=== PATIENT | female | born 1980 | race Caucasian/White ===

== ENCOUNTER 2023-09-22 09:01 | Outpatient (OUT) | payer SELFPAY ==
--- NOTE | 2023-09-22 09:14 | XR_ITS ---
The [place] [id number] Patient Name: JERARDO ONTIVEROS MRN: [id number] date: 1980 Sex: F Assigned Patient Location: [facility] Current Patient Location: [facility] Accession/Order Number: [id number] Exam Date: 09/22/2023 09:21 Report Date: 09/22/2023 15:41 At the request of: ERICA MORTON Procedure: XR finger RT min 2V PROCEDURE: XR finger RT min 2V HISTORY: thumb injury COMPARISON: XR hand right 01/12/2010 FINDINGS: BONES:No fracture, acute abnormality, or significant arthropathy. Ossification along anterior margin of the interphalangeal joint of the thumb is present in 2009 and is consistent with a sesamoid bone. SOFT TISSUES:No visible soft tissue swelling. EFFUSION:None visible. OTHER: Negative. XR/XR finger RT min 2V IMPRESSION: 1. No acute bone abnormality. Electronically authenticated by: JOSEMANUEL MARISCAL Date: 09/22/2023 15:41
--- NOTE | 2023-09-22 09:15 | XR_ITS ---
The [address] [address] Patient Name: JERARDO ONTIVEROS MRN: [id number] date: 1980 Sex: F Assigned Patient Location: [facility] Current Patient Location: Accession/Order Number: [id number] Exam Date: 09/22/2023 09:21 Report Date: 09/23/2023 06:28 At the request of: ERICA MORTON Procedure: XR wrist RT min 3V PROCEDURE: XR wrist RT min 3V HISTORY: right wrist injury COMPARISON: None. FINDINGS: BONES:No fracture, acute abnormality, or significant arthropathy. SOFT TISSUES:No visible soft tissue swelling. EFFUSION:None visible. OTHER: Negative. XR/XR wrist RT min 3V IMPRESSION: 1. No acute bone abnormality. Electronically authenticated by: JOSEMANUEL MARISCAL Date: 09/23/2023 06:28
== END 2023-09-22 09:02 | disposition home or self-care (01) ==
PROVIDERS: Visit Provider Nurse Practitioner Family
DX: M25.531 Pain in right wrist (principal); M79.644 Pain in right finger(s)
CPT/HCPCS: 73110; 73140

== ENCOUNTER 2023-12-04 10:07 | Outpatient (OUT) | payer OTHER, SELFPAY ==
--- OUTSIDE RECORDS SUMMARY | 2023-12-04 10:25 | XMS_ITS | CCD ---
Author Organization [facility] Care Team Providers Care Marketing Communications Assistant Name Role Phone GINNY ARANGO Unavailable Unavailable IVÁN MALONE TONIE Unavailable Unavailabl e Kristen Macias Unavailable Unavailabl e NEVIN LARA Primary Care Physician Timmis, Elena H Referring Unavailable Timmis, Elena H Attending Unavailable Timmis, Elena H Admitting Unavailable Timmis, Elena H Referring Unavailable Timmis, Elena H Attending Unavailable Timmis, Elena H Admitting Unavailable Anglim Nevin OAKLEY Primary Care Provider KIKI Lara Primary Care Provider [phone] MD [place] Phelan Attending Provider DR WESLY PHELAN Admitting Unavailable DR WESLY PHELAN Attending Unavailable [facility] Primary Care Unava ilable DR WESLY PHELAN Consulting Unavailable Alejandra Card Unavailable KIKI Lara Primary Care Provider [phone] MD Alejandra Card Attending Provider ANGLIM, NEVIN Primary Care Unavailable Navya PHELAN Attending Unavailable ANGLIM, NEVIN Primary Care Unavailable ANGLIM, NEVIN Primary Care Unavailable STEFANI CARLOS Referring Unavailable ANGLIM, NEVIN Primary Care Unavailable STEFANI CARLOS Referring Unavailable ANGLIM, NEVIN Primary Care Unavailable KENIA LOVE Referring Unavailab STEFANI Avila Attending Unavailable ANGLIM, NEVIN Primary Care Unavailable ANGLIM, NEVIN Primary Care Unavailable Navya PHELAN Attending Unavailable ANGLIM, NEVIN Primary Care Unavailable Anglim, Nevin Primary Care Unavailable Alejandra Card Attending Unavailable Alejandra Card Admitting Unavailable ANGLIM, NEVIN A Referring Unavailable SERVICES, [facility] Celinasudhakar maravillaanil JOAQUÍN NAVIDVANE Castellanos Referring Unavailable SERVICES, [facility] Unava TROY Mercado Attending Unavailable SERVICES, [facility] IRMA Avilez Attending Unavailabl e IRMA JOSEPH Referring Unavailabl e SERVICES, [facility] Unava ilanil Allergies Allergy Classification Reported Allergen(s) Allergy Type Date of Onset Reaction(s) Facility (20 sources) Penicillins; Translations: [penicillins] Propensity to adverse reactions to drug (disorder) 6 Rash, Swelling, Shortness of Breath [facility] Repository (2 sources) Penicillin Drug Allergy Unknown Quikly Other Medications Current Medications Medication Drug Class(es) Dates Sig (Normalized) Sig (Original) [id number] actuat albuterol 0.09 mg/actuat metered dose inhaler (19 sources) beta2-Adrenergic Agonist take 1 puff(s) by inhalation every four hours as needed Albuterol Sulfate HFA 108 (90 Base) MCG/ACT 1 puff as needed Inhalation every 4 hrs Active albuterol HFA (P ROVENTIL HFA, VENTOLIN HFA) 90 mcg/actuation inhaler Inhale 1 Puff as instructed. 0 Active take 1 puff(s) by in halation every four hours as needed Albuterol Sulfate HFA 108 (90 Base) MCG/ ACT 1 puff as needed Inhalation every 4 hrs Active Comment on above: Inhale 1 Puff as ins tructed. albuterol CFC free 90 mcg/inh inhalation aerosol (2 sources) Start: 04-29-20 take 1 puff(s) by inhalation every six hours albuterol CFC free 90 mcg/inh inhalation aerosol = 1 puff(s), Inhalation, q6hr, Refills(s) 0, Asthma Start Date: 04/29/22 Status: Ordered busPIRone hydrochloride 5 mg oral tablet (2 sources) take 1 tablet by mouth every twelve hours busPIRone HCl 5 MG 1 tablet Orally Twice a day Active Hydrochlorothiazide-25 mg 25 mg (2 sources) Start: 06-24-20 23 take 1 tablet by mouth once daily Hydrochlorothiazid e-25 mg 25 mg 1 tablet Orally Once a day for 90 days Jun, Active take 1 tablet by mouth once karen y Hydrochlorothiazide-25 mg 25 mg 1 tablet Orally Once a day for 90 days Active losartan potassium 100 mg oral tablet (2 sources) Angiotensin 2 Receptor Faith take 1 tablet by mouth every twenty-four hours Losartan Potassium 100 MG 1 tablet Orally Once a day Active nystatin 100 unt/mg topical powder (2 sources) Polyene Antifungal Nystatin 1000 00 UNIT/GM 1 application Externally Twice a day Active Completed/Discontinued Medications Medication Drug Class(es) Dates Sig (Normalized) Sig (Original) amLODIPine 5 mg oral tablet (20 sources) Dihydropyridine Calcium Channel Faith Start: 05-06-2022 amLODIPine (NORVASC) 5 mg tablet Take 5 mg by mouth. 0 05/06/2022 Active take 1 tablet by teodoro th every twenty-four hours amLODIPine Besylate 10 MG 1 tablet Orall y Once a day Active Comment on above: Take 5 mg by mouth. hydrOXYzine pamoate 25 mg oral capsule (2 sources) Antihistamine take 1 capsule by mouth every twenty-four hours hydrOXYzine Pamoate 25 MG 1 capsule at bedtime as needed Orally Once a day Not-Taking/PRN levothyroxine sodium 0.2 mg oral tablet (20 sources) l-Thyroxine Start: 02-06-20 End: 03-26-20 take 1 tablet by mouth once daily levothyroxine (SYNTHROID) 50 mcg tablet Take 1 tablet by mouth once daily. Take along with 200 mcg synthroid daily 30 tablet 2 03/26/2023 Active Start: 12-25-2022 End: 06-24-2023 take 1 tablet by mouth once daily levothyroxine (SYNTHROID) 200 mcg tablet Take 1 tablet by mouth once daily. 30 tablet 3 03/26/2023 Active Start: 10-22-2022 End: 12-25-2022 take 1 tablet by mouth once daily levothyroxine (SYNTHROID) 150 mcg tablet Take 1 tablet by mouth once daily. 30 tablet 3 10/22/2022 12/25/2022 Discontinued Start: 07-08-2022 End: 10-22-2022 take 1 tablet by mouth once daily levothyroxine (SYNTHROID) 125 mcg tablet Take 1 tablet by mouth once daily. 30 tablet 1 08/28/2022 10/22/2022 Discontinued (Course of therapy completed) take 1 tablet by teodoro th once daily in the morning Levothyroxine Sodium 300 MCG 1 tablet in the morning on an empty stomach Orally Once a day Active take 1 tablet by teodoro th once daily in the morning Levothyroxine Sodium 300 MCG 1 tablet in the morning on an empty stomach Orally Once a day Active Comment on above: Take 1 tablet by teodoro th once daily. Take 1 tablet by teodoro th once daily. Take along with 200 mcg synthroid daily liothyronine sodium 0.025 mg oral tablet (11 sources) l-Triiodothyronine Start: 05-20-2022 liothyronine (CYTOMEL) 25 mcg tablet Take 25 mcg by mouth. 0 05/20/2022 Active take 1 tablet by teodoro th every twenty-four hours Liothyronine Sodium 25 MCG 1 tablet on a n empty stomach Orally Once a day Active Comment on above: Take 25 mcg by mouth . lisinopril 5 mg oral tablet (12 sources) Angiotensin Converting Enzyme Inhibitor Start: take 1 tablet by mouth once daily lisinopril (ZESTRIL, PRINIVIL) 5 mg tablet Take 5 mg by mouth once daily. 0 07/07/2022 Active Comment on above: Take 5 mg by mouth o nce daily. ondansetron 8 mg oral tablet (4 sources) Serotonin-3 Receptor Antagonist Start: End: take 1 tablet by mouth every eight hours as needed ondansetron (ZOFRAN) 8 mg tablet Take 1 tablet by mouth every 8 hours as needed for nausea/vomiting. 21 tablet 1 08/06/2022 10/22/2022 Discontinued Comment on above: Take 1 tablet by teodoro th every 8 hours as needed for nausea/vomiting. pilocarpine hydrochloride 5 mg oral tablet (9 sources) Cholinergic Receptor Agonist Start: take 1 tablet by mouth three times daily pilocarpine (SALAGEN, PILOCARPINE,) 5 mg tablet Indications: Thyroid cancer (HCC) Take 1 tablet by mouth three times daily. 15 tablet 0 07/08/2022 Active Comment on above: Take 1 tablet by teodoro th three times daily. prochlorperazine 10 mg oral tablet (11 sources) Phenothiazine Start: End: 023 take 1 tablet by mouth every eight hours as needed prochlorperazine (COMPAZINE) 10 mg tablet Indications: Thyroid cancer (HCC) Take 1 tablet by mouth every 8 hours as needed. 15 tablet 1 07/08/2022 10/22/2022 Discontinued Comment on above: Take 1 tablet by teodoro th every 8 hours as needed. Problems Active Problems Problem Classification Problem Date Documented Date Episodic/Chronic Asthma (2 sources) Asthma 04-29-2022 Chronic Cancer of thyroid (20 sources) Malignant tumor of thyroid gland; Translations: [Malignant neoplasm of thyroid gland] Onset: 07-29-2022 Chronic Chronic kidney disease (2 sources) Chronic kidney disease stage 3B ; Translations: [Stage 3b chronic kidney disease (CKD)] Chronic Chronic kidney disease (3 sources) Chronic kidney disease; Translations: [Hypertensive chronic kidney disease with stage 1 through stage 4 chronic kidney disease, or unspecified chronic kidney disease] Onset: 07-09-2023 Complications of surgical procedures or medical care (1 source) Postprocedural hypothyroidism; Translations: [Postprocedural hypothyroidism] Onset: 11-13-2023 Chronic Hypertension with complications and secondary hypertension (3 sources) Hypertensive renal disease; Translations: [Hypertensive chronic kidney disease with stage 1 through stage 4 chronic kidney disease, or unspecified chronic kidney disease] Chronic Nutritional deficiencies (1 source) Vitamin D deficiency, unspecified; Translations: [Vitamin D deficiency, unspecified] Onset: 11-13-2023 Chronic Other connective tissue disease (1 source) Myalgia, unspecified site; Translations: [Myalgia] Onset: 08-22-2023 Episodic Other connective tissue disease (1 source) Other specified disorders of muscle; Translations: [Myotonia] Onset: 08-22-2023 Episodic Other liver diseases (1 source) Abnormal levels of other serum enzymes; Translations: [HyperCKemia] Onset: 08-22-2023 Episodic Other screening for suspected conditions (not mental disorders or infectious disease) (2 sources) Abnormal electromyogram [EMG]; Translations: [Encounter for screening mammogram for malignant neoplasm of breast] Onset: 08-22-2023 Episodic Other skin disorders (2 sources) Mass of neck 04-29-2022 Episodic Thyroid disorders (1 source) Iodine-deficiency related diffuse (endemic) goiter; 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] Onset: 05-09-2022 Chronic Thyroid disorders (1 source) Disorder of thyroid gland; Translations: [Disorder of thyroid, unspecified] Onset: 05-09-2022 Episodic Unclassified (1 source) PAIN LEFT SIDE Onset: 08-12-2023 Past or Other Problems Problem Classification Problem Date Documented Da te Episodic/Chronic Abdominal pain (2 sources) Unspecified abdominal pain; Translations: [Flank pain] Onset: 08-12-2023 Episodic Results Test Name Value Interpretation Reference Range Facility FREE T3on 11-13-2023 Free T3 [Mass/Vol] 2.52 pg/mL Normal 2.50-3.90 [facility] Comment on above: Performed By: #### 3 5365-6, THYR, 3051-0 #### [facility] ([id number]) [address], [address] [place] [address] THYROID PROFILEon 11-13-2023 Free T4 [Mass/Vol] ng/dL Low 0.61-1.60 [facility] Comment on above: Performed By: #### 3 5365-6, THYR, 3051-0 #### [facility] ([id number]) [address], [address] [place] [address] TSH 115.93 uIU/mL High 0.49-4.67 [facility] Comment on above: Performed By: #### 3 5365-6, THYR, 3051-0 #### [facility] ([id number]) [address], [address] [place] [address] Vitamin D+Metabolites [Mass/ Vol]on 11-13-2023 VITAMIN D 25 HYD TOT 10.5 ng/mL Low 30-100 [facility] Comment on above: Result Comment: Vitamin D status 25 [place] Vitamin D Deficiency <20 ng/mL Insufficiency 20-29 ng/mL Sufficiency 30-100 ng/mL Toxicity >100 ng/mL NOTE: A pediatric reference range has not been established by the executive chef assistant of this kit. The [place] [employer] recommends a Vitamin D level of = or >20ng/mL in infants and children. 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 Sufficiency/Optimal Levels: 31-80 ng/mL Toxicity: > 100 ng/mL. Test performed by chemiluminescent immunoassay. Performed By: #### 1 989-3 ####[facility] [id number] [facility] [id number] [place] Aldolase SerPl-cCncon 2023 Aldolase [Catalytic activity/Vol] 8.5 mU/mL High 1.5-8.1 [facility] Comment on above: Order Comment: Heraclio mesa Type: BLOOD SPECIMENOrdering Facility: [facility] Address: [address] [place] [address] Result Comment: This test was developed and its performance characteristics determined by [facility] [place] ([facility]). It has not been cleared or approved by the FDA. [facility] is regulated under CLIA as qualified to perform high-complexity testing. This test is used for clinical purposes. It should not be regarded as investigational or for research. Performed By: #### 1 761-6 ####[facility] LABNIDHI [id number] [place] [address] [place] CK SerPl-cCncon 08-19-2023 CK [Catalytic activity/Vol] 749 U/L High 42-196 [facility] Comment on above: Order Comment: Speci men Type: BLOOD SPECIMENOrdering Facility: [facility] Address: [address] [place] [address] Performed By: #### 2 157-6, 3016-3 ####[facility] [id number] [place] [address] [place] CNOVon 08-19-2023 CNOV Office Visit (NENMMN ) JERARDO ZENG ([id number]) 1980 F Date Time Provider Department 08/19/23 2:00 PM STEFANI CARLOSCTLENORE During your visit today, we recorded the following information about you: Pulse Blood pressure Weight Height 88/minute 132/94 93.4 kg 1.702 Stefani Panda MD 08/22/2023 9:35 AM Signed [facility] New Patient Visit Note Consultation requested by Dr. Kenia Love for an opinion regarding concern for underlying myotonic disorder based on OSH EMG findings for workup of UE> LE tightness , +/- myalgic, +/- generalized fatigue/weakness (most notable over the past ~1 month or so). My final recommendations will be communicated back to the requesting physician by way of shared Medical record or letter to requesting physician via US mail. History of Present Illness: Ms. Zeng is a pleasant 42 year old right-handed female with a PMHx inclusive of asthma, DEV and HTN presenting for concern RE: underlying myotonic disorder based on OSH EMG findings for workup of evaluation of UE> LE tightness , +/- myalgic, +/- generalized fatigue/weakness (most notable over the past ~1 month or so). The patient describes her target symptoms of concern starting about a month ago with tightness in the muscles of the shoulder areas, as well as in the hands, still is somewhat left side predominant proximally, and right side predominant distally. There is associated discomfort rated at about 3-5/10, on average. She also describes the upper more than lower limbs as feeling heavy , having a tendency for muscle cramps, particularly in the hands (but also endorses issues more related to impaired muscle relaxation in the hands, particularly digits 1). She believes that there is at least some muscle weakness vs fatigue, but is difficult to state if particular muscle groups are affected more than others. Some of the impaired relaxation issues seem to be triggered or worsened with ambient cold (including in the areas of the distal leg and feet). When asked about bulbar symptoms she believes that at times she may have impaired relaxation of her tongue muscles and her tongue feels heavy , but she does not report significant dysarthria or dysphagia (or eyelid myotonia symptoms). She denies muscle atrophy, but suspects that she has some muscle twitching in the limbs. She denies significant gait issues or fall tendencies, but the UE symptoms hampers rather than prohibits the use of her hands (she describes sometimes having to switch hands on the steering wheel, for example). When asked about potential respiratory symptoms, she says that it is difficult to identify what is new from what is chronic because she has a history of asthma, and she tends to sleep with 9 pillows behind her head and back when she is in bed because of snoring issues (says recently diagnosed with obstructive sleep apnea, still awaiting insurance clearance to obtain CPAP). There is some WHEAT as well. From the cardiac standpoint, she endorses some palpitation at times, and says that she may have intermittent leg swelling, but attributes this to when blood pressure is particularly uncontrolled (as it has been in the past). No clear PND. 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 From the GI standpoint, she says she has had chronic constipation (at least over the past 1-2 years). She says she has been screened for diabetes in the past and was told she has borderline diabetes . She was also diagnosed with thyroid issues s/p thyroidectomy 05/2022. She was referred to me after seeing Dr. 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 He mentions that those findings were new compared to a previous study from 10/16/2010. The patient states that both parents unfortunately recently, her mom from stage IV lung cancer at age 63, and her dad from liver cancer at age 64. She has 3 siblings including a 48-year-old sister who has Crohn's disease, breast cancer and diabetes mellitus, with her brothers (44 and 43 years old) without known medical issues. She is unaware of any family member with similar muscle symptoms or diagnosis of myotonic disorder. She has a daughter who is 22 years old, who has similar symptoms of muscle pains and tightness . The patient has had no genetics testing to date. PAST MEDICAL HISTORY Diagnosis Date Asthma CKD (chronic kidney disease) stage 3, GFR 30-59 ml/min (H (more content not included)... Normal [facility] DNA EXTRACTION BLOODon 08-19 CONCENTRATION (NG/UL) 35.71 ng/ul Normal [facility] Comment on above: Order Comment: Speci men Type: BLOOD SPECIMENOrdering Facility: [facility] Address: [address] [place] [address] Performed By: #### N UCBLD ####CL[facility] ILLUMINA LIMSCLIA [id number] [facility] [id number] [place] [address] [place] TOTAL YIELD 8.93 ug Normal [facility] Comment on above: Order Comment: Speci bonita Type: BLOOD SPECIMENOrdering Facility: [facility] Address: [address] [place] [address] Result Comment: Spec imens will be available for 3 years from date of collection. To order testing on this specimen for [facility] patients, please place an [facility] order for DNA and RNA for Clinical Testing ([id number]). To order for patients outside of the [facility] system, please request DNA and RNA for Clinical Testing, order code [id number]. If additional paperwork is required for testing, please email completed forms to . Performed By: #### N UCBLD ####[facility] LIMSCLIA [id number] [place] [address] [place] VOLUME (UL) OF DNA 250 uL Normal [facility] Comment on above: Order Comment: Speci bonita Type: BLOOD SPECIMENOrdering Facility: [facility] Address: [address] [place] [address] Performed By: #### N UCBLD ####[facility] LIMSCLIA [id number] [place] [address] [place] TSH SerPl-aCncon 08-19-2023 TSH Qn 86.100 m[IU]/L High 0.270-4.200 [facility] Comment on above: Order Comment: Speci bonita Type: BLOOD SPECIMENOrdering Facility: [facility] Address: [address] [place] [address] Result Comment: If t he patient is , TSH reference range varies by gestational period: First Trimester (weeks 9-12): 0.180-2.990 mIU/L Second Trimester: 0.110-3.980 mIU/L Third Trimester: 0.480-4.710 mIU/L Isidro Esteves et al. A Practical Approach for the Verifications and Determination of Site- and Trimester-Specific Reference Intervals for Thyroid Function tests in . Thyroid, 2019:29:3:412-420. Regan Dorsey, et al. 2017 Guidelines of the [place] Thy[employer] Association for the Diagnosis and Management of Thyroid Disease during and the . Thyroid, 2017:27:3:315-389. Performed By: #### 2 157-6, 3016-3 ####[facility] [id number] [address] [place] URN MACROSCOPIC NURon 2023 BILIRUBIN LILLIE Negative Normal NEG [facility] Comment on above: Performed By: #### N UM #### [facility] ([id number]) [address] [place] [address] BLOOD/HGB LILLIE Trace Abnormal NEG [facility] Comment on above: Performed By: #### N UM #### [facility] ([id number]) [address] [place] [address] [place] [address] GLUCOSE LILLIE Negative Normal NEG [facility] Comment on above: Performed By: #### N UM #### [facility] ([id number]) [address] [place] [address] [place] [address] KETONES LILLIE Negative Normal NEG [facility] Comment on above: Performed By: #### N UM #### [facility] ([id number]) [address] [place] [address] [place] [address] LEUKOCYTE ESTERASE LILLIE Negative Normal NEG [facility] Comment on above: Performed By: #### N UM #### [facility] ([id number]) [address] [place] [address] [place] [address] NITRITE LILLIE Negative Normal NEG [facility] Comment on above: Performed By: #### N UM #### [facility] ([id number]) [address] [place] [address] [place] [address] PH LILLIE 6.5 Normal 5.0-8.5 [facility] Comment on above: Performed By: #### N UM #### [facility] ([id number]) [address] [place] [address] [place] [address] PROTEIN LILLIE Negative Normal NEG [facility] Comment on above: Performed By: #### N UM #### [facility] ([id number]) [address] [place] [address] [place] [address] SPECIFIC GRAVITY LILLIE 1.025 Normal 1.003-1.035 [facility] Comment on above: Performed By: #### N UM #### [facility] ([id number]) [address] [place] [address] UROBILINOGEN LILLIE 0.2 eu/dL Normal <1.1 [facility] Comment on above: Performed By: #### N UM #### [facility] ([id number]) [address] [place] [address], [place] [address] US renal BIon 07-09-2023 US renal BI [facility] [place] [address] [place] [address] Ultrasound Report Signed Patient: Jerardo Zeng MR#: [id number] 4 : 1980 Acct:[id number] Age/Sex: 42 / F ADM Date: 07/09/23 Loc: Room: Type: [facility] Attending Dr: Alejandra Card MD Ordering Provider: Alejandra Card MD Date of Service: 07/09/23 US/US renal BI: Stage 3b chronic kidney disease (CKD);Hypertensive nephropat Copies to: Alejandra Card MD BILATERAL RENAL AND BLADDER ULTRASOUND CLINICAL HISTORY: Stage IIIb Chronic kidney disease COMPARISON: None Estimation of renal size is approximately 9.31 cm on the right and 9.01 cm on the left. No contour deforming mass, shadowing stone or hydronephrosis. The urinary bladder is partially distended with a volume of 266.96 ml. No shadowing stone or focal lesion. No significant postvoid residual. US/US renal BI IMPRESSION: No acute findings. Impression dictated by: Murray Tyler Jr., D.O.07/09/2023 10:07 AM Dictation Location: [place] [address] Tech: David Delgado Transcribed By: [facility] 07/09/23 1007 Dictated By: Murray Tyler Jr, DO 07/09/23 1007 Signed By: 07/09/23 1007 [facility] Fernando 06-25-2023 CNPN Telephone (NIQ) JERARDO ZENG ([id number]) 1980 F Date Time Provider Department 06/25/23 NEUROLOGY PROVIDER NIEugenio During your visit today, we recorded the following information about you: Arlene Mendoza 06/25/2023 11:31 AM Addendum Uploaded report from external EMG performed on 06/22/23 and lab results. Allergies As of Date: 06/25/2023 Noted Allergy Reaction PENICILLINS 07/08/2022 2 - Rash 7 - Swelling 12 - Shortness of Breath Date Reviewed: 02/05/2023 Reviewed by: Denise Vang LPN - Fully Assessed Reason for Visit: Received Outside Medical Records [[id number]] Cmt: External EMG AND lab reports Prescriptions as of 06/25/2023 - levothyroxine (SYNTHROID) 50 mcg tablet Take 1 tablet by mouth once daily. Take along with 200 mcg synthroid daily - levothyroxine (SYNTHROID) 200 mcg tablet Take 1 tablet by mouth once daily. - amLODIPine (NORVASC) 5 mg tablet Take 5 mg by mouth. - albuterol HFA (PROVENTIL HFA, VENTOLIN HFA) 90 mcg/actuation inhaler Inhale 1 Puff as instructed. Problem List As Of Date 06/25/2023 Noted Resolved Malignant neoplasm of thyroid gland (HCC) [C73] 07/29/2022 Encounter Status:Closed by ARLENE MENDOZA on 06/25/[address] [facility] Fernando 06-23-2023 CELEN Telephone (NIQ) JERARDO ZENG ([id number]) 1980 F Date Time Provider Department 06/23/23 NEUROLOGY PROVIDER LIZA During your visit today, we recorded the following information about you: Arlene Mendoza 06/23/2023 1:48 PM Signed Referral source: Kenia Love DO ([facility]) Reason for visit: 2nd opinion from Dr. Stefani Carlos regarding neuropathy and paresthesias in upper extremities. Elevated creatinine kinase. Office will send EMG and lab results. External records: Sent with referral but only partially received. Triage: Not required Financial clearance: Not required to schedule Allergies As of Date: 06/23/2023 Noted Allergy Reaction PENICILLINS 07/08/2022 2 - Rash 7 - Swelling 12 - Shortness of Breath Date Reviewed: 02/05/2023 Reviewed by: Denise Vang LPN - Fully Assessed Reason for Visit: Received Outside Medical Records [[id number]] Cmt: External referral to [facility] [place] Prescriptions as of 06/23/2023 - levothyroxine (SYNTHROID) 50 mcg tablet Take 1 tablet by mouth once daily. Take along with 200 mcg synthroid daily - levothyroxine (SYNTHROID) 200 mcg tablet Take 1 tablet by mouth once daily. - amLODIPine (NORVASC) 5 mg tablet Take 5 mg by mouth. - albuterol HFA (PROVENTIL HFA, VENTOLIN HFA) 90 mcg/actuation inhaler Inhale 1 Puff as instructed. Problem List As Of Date 06/23/2023 Noted Resolved Malignant neoplasm of thyroid gland (HCC) [C73] 07/29/2022 Encounter Status:Closed by ARLENE MENDOZA on 06/23/[address] [facility] CNSWon 03-27-2023 CNSW Social Work (SEBASTIAN) JERARDO ZENG ([id number]) 1980 F Date Time Provider Department 03/27/23 HEATHER ROSENBAUM During your visit today, we recorded the following information about you: Heather Rosenbaum LSW 03/27/2023 1:22 PM Signed Patient Declined Social Work Assessment Patient appears on the [employer] Report for a PHQ-9 score of 21 on 03/24/23. Patient declines the need for intervention. SW will remain available and will follow up as appropriate. LINDA Holman-Tremaine Allergies As of Date: 03/27/2023 Noted Allergy Reaction PENICILLINS 07/08/2022 2 - Rash 7 - Swelling 12 - Shortness of Breath Date Reviewed: 02/05/2023 Reviewed by: Denise Vang LPN - Fully Assessed Prescriptions as of 03/27/2023 - levothyroxine (SYNTHROID) 50 mcg tablet Take 1 tablet by mouth once daily. Take along with 200 mcg synthroid daily - levothyroxine (SYNTHROID) 200 mcg tablet Take 1 tablet by mouth once daily. - amLODIPine (NORVASC) 5 mg tablet Take 5 mg by mouth. - albuterol HFA (PROVENTIL HFA, VENTOLIN HFA) 90 mcg/actuation inhaler Inhale 1 Puff as instructed. Problem List As Of Date 03/27/2023 Noted Resolved Malignant neoplasm of thyroid gland (HCC) [C73] 07/29/2022 Encounter Status:Closed by HEATHER [facility]BAUM [facility] JERARD[facility] ZENG ([id number]) 1980 F Date Time Provider Department 03/26/23 Navya PHELAN During your visit today, we recorded the following information about you: Eli Childress 03/26/2023 12:44 PM Signed Jeannette gregory you please send to [facility] in [place] thank you! PATIENT NAME: Jerardo Zeng PATIENT : 1980 Patient needs endocrinology consult soon. Please also verify that she has enough medicine until I consult. If it is going to be more than 1 week then we should see patient in clinic. Consult order placed in [facility] Denise Vang LPN 03/26/2023 2:[address] Phelan: Jerardo states she does need refills for her levothyroxine. Orders pending your approval. Denise Vang LPN [facility], Maggie L 03/26/2023 3:00 PM Signed Records faxed to Dr. Yanes. Lira Pss, Maci 04/02/2023 11:[address] Yanes office spoke with Khalida. She states they have not received this referral and have asked us to please re-fax it. Jeannette: Please re-fax this referral. Thank you. Maci Lira Pss [facility], Maggie 04/02/2023 12:10 PM Signed Records re-faxed to Dr. Yanes. Lira Pss, Maci 04/08/2023 9:[address] Yanes office spoke with [place]. She states they have received this referral and they will be calling patient soon to get scheduled. Maci Lira Pss Lira Pss, Maci 04/15/2023 9:45 AM Signed Called left message for Dr Yanes office to call us back with status of this referral. Maci Lira Pss Lira Pss, Maci 04/15/2023 4:[address]x from [address] Yanes office called back. She is currently working on calling and getting this patient scheduled. Maci Lira Pss Lira Pss, Maci 04/20/2023 8:[address] Yanes office left message for their office to call us back with status of this referral. Maci Lira Pss Lira Pss, Maci 04/20/2023 11:[address] Joaquín herbert called back patient is scheduled to see Dr Yanes on 05/08 @ 10:10. Maci Lira Pss Allergies As of Date: 03/26/2023 Noted Allergy Reaction PENICILLINS 07/08/2022 2 - Rash 7 - Swelling 12 - Shortness of Breath Date Reviewed: 02/05/2023 Reviewed by: Denise Vang LPN - Fully Assessed Reason for Visit: Appointment Confirmation [[id number]] Order(s):levothyroxine (SYNTHROID) 50 mcg tabletTake 1 tablet by mouth once daily. Take along with 200 mcg synthroid dailyDisp: 30 tabletRfl: 2 levothyroxine (SYNTHROID) 200 mcg tabletTake 1 tablet by mouth once daily.Disp: 30 tabletRfl: 3 Prescriptions as of 04/20/2023 - levothyroxine (SYNTHROID) 50 mcg tablet Take 1 tablet by mouth once daily. Take along with 200 mcg synthroid daily - levothyroxine (SYNTHROID) 200 mcg tablet Take 1 tablet by mouth once daily. - amLODIPine (NORVASC) 5 mg tablet Take 5 mg by mouth. - albuterol HFA (PROVENTIL HFA, VENTOLIN HFA) 90 mcg/actuation inhaler Inhale 1 Puff as instructed. Problem List As Of Date 03/26/2023 Noted Resolved Malignant neoplasm of thyroid gland (HCC) [C73] 07/29/2022 Prescriptions ordered this encounter Disp Refills Start End LEVOTHYROXINE 50 MCG TABLET 30 t* 2 03/26/2023 Route: ORAL Sig: Take 1 tablet by mouth once daily. Take along with 200 mcg synthroid daily LEVOTHYROXINE 200 MCG TABLET 30 t* 3 03/26/2023 06/24/2023 Route: ORAL Sig: Take 1 tablet by mouth once daily. Medications Discontinued During This Encounter Prescriptions - levothyroxine (SYNTHROID) 200 mcg tablet (Discontinued) Take 1 tablet by mouth once daily. - levothyroxine (SYNTHROID) 50 mcg tablet (Discontinued) Take 1 tablet by mouth once daily. Take along with 200 mcg synthroid daily Encounter Status:Closed by Navya PHELAN on 03/26/23 Normal [facility] T3 SerPl-mCncon 03-19-2023 T3 [Mass/Vol] 27 ng/dL Low 79-165 [facility] Comment on above: Order Comment: Speci men Type: BLOOD SPECIMENOrdering Facility: [facility] Address: [address] [place] [id number] Performed By: #### 3 016-3, 3053-6, 3026-2 ####[facility] LABCLIA [id number] [place] [id number] [place] T4 SerPl-mCncon 03-19-2023 T4 [Mass/Vol] 1.5 ug/dL Low 5.5-10.2 [facility] Comment on above: Order Comment: [place] Type: BLOOD SPECIMENOrdering Facility: [facility] Address: [place] [address] Performed By: #### 3 016-3, 3053-6, 6-2 ####[facility] [id number] [address] TSH SerPl-aCncon 03-19-2023 TSH Qn 76.500 m[IU]/L High 0.270-4.200 [facility] Comment on above: Order Comment: Speci men Type: BLOOD SPECIMENOrdering Facility: [facility] Address: [place] [address] Result Comment: If t he patient is , TSH reference range varies by gestational period: First Trimester (weeks 9-12): 0.180-2.990 mIU/L Second Trimester: 0.110-3.980 mIU/L Third Trimester: 0.480-4.710 mIU/L Isidro Esteves et al. A Practical Approach for the Verifications and Determination of Site- and Trimester-Specific Reference Intervals for Thyroid Function tests in . Thyroid, 2019:29:3:412-420. Regan Dorsey, et al. 2017 Guidelines of the [place] Thyroid Association for the Diagnosis and Management of Thyroid Disease during and the . Thyroid, 2017:27:3:315-389. Performed By: #### 3 016-3, 3053-6, 3026-2 ####[facility] [id number] [place] [id number] [facility] CNPElvia 02-09-2023 CNPN Telephone ([employer]) JERARDO ZENG ([id number]) 1980 F Date Time Provider Department 02/09/23 HEATHER ROSENBAUM During your visit today, we recorded the following information about you: VALENTINA Holman 02/09/2023 1:37 PM Signed Patient Declined Social Work Assessment Patient appears on the [employer] [place] Report for a PHQ-9 score of 20. This questionnaire was taken on 02/05/23. SW called and spoke with the Patient. Patient shares that her PCP is helping with her mental health needs. Patient declined the need for this SW's services. SW will remain available and will follow up as appropriate. LINDA Holman-S Allergies As of Date: 02/09/2023 Noted Allergy Reaction PENICILLINS 07/08/2022 2 - Rash 7 - Swelling 12 - Shortness of Breath Date Reviewed: 02/05/2023 Reviewed by: Denise Vang LPN - Fully Assessed Reason for Visit: Social Work Services [507] Cmt: PRO [place] SW Report follow up. Prescriptions as of 02/09/2023 - levothyroxine (SYNTHROID) 50 mcg tablet Take 1 tablet by mouth once daily. Take along with 200 mcg synthroid daily - levothyroxine (SYNTHROID) 200 mcg tablet Take 1 tablet by mouth once daily. - amLODIPine (NORVASC) 5 mg tablet Take 5 mg by mouth. - albuterol HFA (PROVENTIL HFA, VENTOLIN HFA) 90 mcg/actuation inhaler Inhale 1 Puff as instructed. Problem List As Of Date 02/09/2023 Noted Resolved Malignant neoplasm of thyroid gland (HCC) [C73] 07/29/2022 Encounter Status:Closed by HEATHER ROSENBAUM on 02/09/[address] [facility] Priyanka 02-05-2023 CNOV Office Visit (RADTSA ) JERARDO ZENG ([id number]) 1980 F Date Time Provider Department 02/05/23 11:30 AM Navya PHELAN During your visit today, we recorded the following information about you: Temperature Pulse Respiration Blood pressure 97.4 degrees 61/minute 20/minute 141/110 Weight 94.2 kg G Larry Phelan MD 02/05/2023 11:11 AM Signed Radiation Oncology -follow up note PATIENT NAME: Jerardo Zeng PATIENT : 1980 REQUESTING PROVIDER: Dr. Rey Primary Site: Thyroid Date of Diagnosis: May 08, 2022 Clinical Stage: T2 N0 M0 Pathologic Stage: T2 Nx M0 DIAGNOSIS: Thyroid cancer, papillary carcinoma follicular variant, stage I [id number]. Status post thyroidectomy on 05/08/2022. Status post I-131 ablative therapy, 50.7 mCi on 08/07/2022 HPI: Main complaint fatigue. She states she has been compliant with her thyroid medicine. Denies neck pain or dysphagia. RADIOLOGY: Whole-body scan 08/14/2022: Uptake within the thyroid bed. No worrisome uptake in the cervical area or elsewhere. LABORATORY: Latest Reference Range AND Units 07/08/22 12:04 08/07/22 10:51 12/04/22 11:00 01/29/23 10:47 T4 5.5 - 10.2 ug/dL 2.5 (L) 2.7 (L) TSH 0.270 - 4.200 mIU/L 74.400 (H) 68.100 (H) Thyroglobulin 1.6 - 59.9 ng/mL 7.2 20.1 Thyroglobulin Ab, Serum <4.0 IU/mL <0.9 (C) <0.9 <0.9 Thyroglobulin, Serum 1.6 - 50.0 ng/mL 5.1 11.9 <0.1 (L) (L): Data is abnormally low (H): Data is abnormally high (C): Corrected FOCUSED ROS: Dysphagia: Yes better after surgery Mucositis: No Voice Changes:No Fatigue: No Nausea: No Vomitting: No Pain: No Taste: No Weight loss: No ALLERGIES Allergen Reactions Penicillins Rash, Swelling, Shortness of Breath MEDICATIONS: levothyroxine (SYNTHROID) 200 mcg tablet Take 1 tablet by mouth once daily. amLODIPine (NORVASC) 5 mg tablet Take 5 mg by mouth. albuterol HFA (PROVENTIL HFA, VENTOLIN HFA) 90 mcg/actuation inhaler Inhale 1 Puff as instructed. lisinopril (ZESTRIL, PRINIVIL) 5 mg tablet Take 5 mg by mouth once daily. PAST MEDICAL HISTORY Diagnosis Date Asthma HTN (hypertension) Prior radiation therapy, collagen vascular disease, or inflammatory bowel disease: No status: Patient states there is no possibility she is at this time. Educated on risks of during treatment. PAST SURGICAL HISTORY Procedure Laterality Date BX OF BREAST; INCISIONAL Left 1995, 2021 CHOLECYSTECTOMY HYSTERECTOMY PAST SURGICAL HISTORY OF Left ganglion cyst removal-left wrist THYROIDECTOMY FAMILY HISTORY Problem Relation Age of Onset Lung Cancer Mother Liver Cancer Father Breast Cancer Sister 43 Social History Tobacco Use Smoking status: Never Smokeless tobacco: Never Substance Use Topics Alcohol use: Not Currently Drug use: Not Currently Smoking: No Heavy Alcohol Consumption: No COMPLETE REVIEW OF SYSTEMS: GENERAL: feeling well without fatigue, no recent change in weight NECK: denies swelling or pain in neck RESPIRATORY: no cough, no wheezing or shortness of breath CARDIOVASCULAR: no chest pain, no palpitations GI: normal appetite, tolerating PO well, BMs normal, and no abdominal pain NEURO: no numbness or paresthesias and no weakness of the extremities As noted in HPI PHYSICAL EXAM: VS: There were no vitals taken for this visit. KPS: 100 General Appearance: Alert and oriented. No acute distress. Neck: Normal ROM. No palpable cervical or supraclavicular adenopathy. Well-healing low neck incision. No masses or nodularity notable Lymphatics: No palpable lymphadenopathy. Hematologic: No signs of active bleeding. ASSESSMENT/PLAN: Thyroid cancer, papillary carcinoma follicular variant, stage I [id number]. Status post thyroidectomy on 05/08/2022. Thyroglobulin undetectable. However still needs increased thyroid replacement dose. Recommend to 50 mcg up from 200, recheck labs in 6 weeks. Signed by: Navya Phelan MD cc: Nevin Lara [address] [place] [address] Elena Rey MD [address] [place] [id number] Allergies As of Date: 02/05/2023 Noted Allergy Reaction PENICILLINS 07/08/2022 2 - Rash 7 - Swelling 12 - Shortness of Breath Date Reviewed: 02/05/2023 Reviewed by: Denise Vang LPN - Fully Assessed Reason for Visit: Thyroid Cancer [879] Primary Visit Diagnosis:Thyroid cancer (HCC) [C73] Order(s):levothyroxine (SYNTHROID) 50 mcg tabletTake 1 tablet by mouth once daily. Take along with 200 mcg synthroid dailyDisp: 30 tabletRfl: 2 TSH BLD [SQTSH] Order #: [id number] FUTURE T3 BLD [SQT3] Order #: [id number] FUTURE T4/THYROXINE BLOOD [SQT4] Order #: [id number] FUTURE Prescriptions as of 02/05/2023 - levothyroxine (SYNTHROID) 50 mcg tablet Take 1 tablet by mouth once daily. Take along with 200 mcg (more content not included)... Normal [facility] T4 SerPl-mCncon 01-29-2023 T4 [Mass/Vol] 2.7 ug/dL Low 5.5-10.2 [facility] Comment on above: Order Comment: Speci men Type: BLOOD SPECIMENOrdering Facility: [facility] Address: [address] [place], [place] [id number] Performed By: #### 3 026-2, 3016-3 ####[facility] LABCLIA [id number] [address] [place] TSH SerPl-aCncon 01-29-2023 TSH Qn 68.100 m[IU]/L High 0.270-4.200 [facility] Comment on above: Order Comment: Speci men Type: BLOOD SPECIMENOrdering Facility: [facility] Address: [address] [place], [place] [id number] Result Comment: If t he patient is , TSH reference range varies by gestational period: First Trimester (weeks 9-12): 0.180-2.990 mIU/L Second Trimester: 0.110-3.980 mIU/L Third Trimester: 0.480-4.710 mIU/L Isidro Esteves et al. A Practical Approach for the Verifications and Determination of Site- and Trimester-Specific Reference Intervals for Thyroid Function tests in . Thyroid, 2019:29:3:412-420. Regan Dorsey et al. 2017 Guidelines of the [place] Thyroid Association for the Diagnosis and Management of Thyroid Disease during and the . Thyroid, 2017:27:3:315-389. Performed By: #### 3 026-2, 3016-3 ####[facility] LABIA [id number] [address] OF [facility] Thyroglobulin and Thyrogobul in Ab panelon 01-29-2023 Thyroglobulin Ab Qn [IU]/mL Normal <4.0 [facility] Comment on above: Order Comment: [place] Type: BLOOD SPECIMENOrdering Facility: [facility] Address: [address] [place] [address] Result Comment: The Thyroglobulin Antibody test was performed using the Soha Sentiment[employer] DXI paramagnetic particle chemiluminescent immunoassay method. Results obtained with different assay methods or kits cannot be used interchangeably. Performed By: #### 5 7780-9 ####[facility] [id number] [address] OF [facility] THYROGLOBULIN, SERUM <0.1 Low 1.6-50.0 [facility] Comment on above: Order Comment: [place] Type: BLOOD SPECIMENOrdering Facility: [facility] Address: [address] [place] [address] Result Comment: The Thyroglobulin test was performed using the Soha Expandly Unicel DXI paramagnetic particle chemiluminescent immunoassay method. Results obtained with different assay methods or kits cannot be used interchangeably. Performed By: #### 5 7780-9 ####[facility] LABIA [id number] [address] [place] CNPNon 12-26-2022 CNPN Telephone ([facility]) JERARDO ZENG ([id number]) 1980 F Date Time Provider Department 12/26/22 NICK AHMADI During your visit today, we recorded the following information about you: LINDA Candelario 12/26/2022 9:29 AM Addendum SOCIAL WORK DISTRESS ASSESSMENT Referral made due to: depression based on PHQ-9 questionnaire Contact was made: By telephone call with patient Pt appears on [employer] Work Report with a PHQ-9 score of 19 indicating moderately severe depression. This score results in SW outreach. Pt is negative for #9. SW phoned Pt and provided education on reason for SW outreach. Pt is not able to talk at this time, is at the hospital with her uncle who does not appear to be doing well. Pt confirms she is depressed, shares she lost both parents within the last year. Pt states she is appreciative of outreach and requests a call back next week. Active listening and validation provided. Social Work to attempt to reach Pt at a later time. Follow up appointment with SW in: PRN Assigned SW listed in Care Team tab: No Patient Declined Social Work Assessment LINDA Candelario-S Allergies As of Date: 12/26/2022 Noted Allergy Reaction PENICILLINS 07/08/2022 2 - Rash 7 - Swelling 12 - Shortness of Breath Date Reviewed: 08/21/2022 Reviewed by: Fiorella Pettit, RN - Fully Assessed Reason for Visit: Social Work Services [507] Cmt: Pt appears on [employer] Work Report Prescriptions as of 12/26/2022 - levothyroxine (SYNTHROID) 200 mcg tablet Take 1 tablet by mouth once daily. - amLODIPine (NORVASC) 5 mg tablet Take 5 mg by mouth. - albuterol HFA (PROVENTIL HFA, VENTOLIN HFA) 90 mcg/actuation inhaler Inhale 1 Puff as instructed. - lisinopril (ZESTRIL, PRINIVIL) 5 mg tablet Take 5 mg by mouth once daily. Problem List As Of Date 12/26/2022 Noted Resolved Malignant neoplasm of thyroid gland (HCC) [C73] 07/29/2022 Encounter Status:Closed by NICK AHMADI on 12/26/[address] [facility] CNOVon 12-25-2022 CNOV Office Visit (RADTSA ) RAMAJERARDO ([id number]) 1980 F Date Time Provider Department 12/25/22 11:45 AM Navya PHELAN During your visit today, we recorded the following information about you: Temperature Pulse Respiration Blood pressure 97.6 degrees 60/minute 18/minute 153/108 Weight 94.3 kg Navya Phelan MD 12/30/2022 2:55 PM Signed Radiation Oncology -follow up note PATIENT NAME: Jerardo Zeng PATIENT : 1980 REQUESTING PROVIDER: Dr. Rey Primary Site: Thyroid Date of Diagnosis: May 08, 2022 Clinical Stage: T2 N0 M0 Pathologic Stage: T2 Nx M0 DIAGNOSIS: Thyroid cancer, papillary carcinoma follicular variant, stage I [id number]. Status post thyroidectomy on 05/08/2022. Status post I-131 ablative therapy, 50.7 mCi on 08/07/2022 HPI: Patient states she is feeling better after recent dose adjustment however still with excessive fatigue. Denies chest pain. Appetite stable. Is more functional. RADIOLOGY: Whole-body scan 08/14/2022: Uptake within the thyroid bed. No worrisome uptake in the cervical area or elsewhere. LABORATORY: Latest Reference Range AND Units Most Recent 07/08/22 12:04 08/07/22 10:51 12/04/22 11:00 Thyroglobulin 1.6 - 59.9 ng/mL 20.1 08/07/22 10:51 7.2 20.1 TG Antibody Screen <14.4 IU/mL 1.2 08/07/22 10:51 1.2 1.2 Thyroglobulin Ab, Serum <4.0 IU/mL <0.9 08/07/22 10:51 <0.9 (C) <0.9 Thyroglobulin, Serum 1.6 - 50.0 ng/mL 11.9 08/07/22 10:51 5.1 11.9 T4 5.5 - 10.2 ug/dL 2.5 (L) 12/04/22 11:00 2.5 (L) TSH 0.270 - 4.200 mIU/L 74.400 (H) 12/04/22 11:00 74.400 (H) (L): Data is abnormally low (H): Data is abnormally high (C): Corrected Latest Reference Range AND Units 07/08/22 12:04 08/07/22 10:51 Thyroglobulin 1.6 - 59.9 ng/mL 7.2 20.1 TG Antibody Screen <14.4 IU/mL 1.2 1.2 Thyroglobulin Ab, Serum <4.0 IU/mL <0.9 (C) <0.9 Thyroglobulin, Serum 1.6 - 50.0 ng/mL 5.1 11.9 (C): Corrected FOCUSED ROS: Dysphagia: Yes better after surgery Mucositis: No Voice Changes:No Fatigue: No Nausea: No Vomitting: No Pain: No Taste: No Weight loss: No ALLERGIES Allergen Reactions Penicillins Rash, Swelling, Shortness of Breath MEDICATIONS: levothyroxine (SYNTHROID) 150 mcg tablet Take 1 tablet by mouth once daily. amLODIPine (NORVASC) 5 mg tablet Take 5 mg by mouth. albuterol HFA (PROVENTIL HFA, VENTOLIN HFA) 90 mcg/actuation inhaler Inhale 1 Puff as instructed. lisinopril (ZESTRIL, PRINIVIL) 5 mg tablet Take 5 mg by mouth once daily. PAST MEDICAL HISTORY Diagnosis Date Asthma HTN (hypertension) Prior radiation therapy, collagen vascular disease, or inflammatory bowel disease: No status: Patient states there is no possibility she is at this time. Educated on risks of during treatment. PAST SURGICAL HISTORY Procedure Laterality Date BX OF BREAST; INCISIONAL Left 1995, 2021 CHOLECYSTECTOMY HYSTERECTOMY PAST SURGICAL HISTORY OF Left ganglion cyst removal-left wrist THYROIDECTOMY FAMILY HISTORY Problem Relation Age of Onset Lung Cancer Mother Liver Cancer Father Breast Cancer Sister 43 Social History Tobacco Use Smoking status: Never Smokeless tobacco: Never Substance Use Topics Alcohol use: Not Currently Drug use: Not Currently Smoking: No Heavy Alcohol Consumption: No COMPLETE REVIEW OF SYSTEMS: GENERAL: feeling well without fatigue, no recent change in weight NECK: denies swelling or pain in neck RESPIRATORY: no cough, no wheezing or shortness of breath CARDIOVASCULAR: no chest pain, no palpitations GI: normal appetite, tolerating PO well, BMs normal, and no abdominal pain NEURO: no numbness or paresthesias and no weakness of the extremities As noted in HPI PHYSICAL EXAM: VS: BP 153/108 Pulse 60 Temp 36.4 ?C (97.6 ?F) Resp 18 Wt 94.3 kg (208 lb) SpO2 96% BMI (P) 33.57 kg/m? KPS: 100 General Appearance: Alert and oriented. No acute distress. Neck: Normal ROM. No palpable cervical or supraclavicular adenopathy. Well-healing low neck incision. No masses or nodularity notable Lymphatics: No palpable lymphadenopathy. Hematologic: No signs of active bleeding. ASSESSMENT/PLAN: Thyroid cancer, papillary carcinoma follicular variant, stage I [id number]. Status post thyroidectomy on 05/08/2022. Doing well after I-131 ablative treatment. She still underdosed with her Synthroid. Recommend increasing her dose to 200 mcg daily and rechecking labs in 4 to 6 weeks. Signed by: Navya Phelan MD cc: Nevin Lara [address] [place] [address] Elena Rey MD [address] [place] [id number] Allergies As of Date: 12/25/2022 Noted Allergy Reaction PENICILLINS 07/08/2022 2 - Rash 7 - Swelling 12 - Shortness of Breath Date Reviewed: 08/21/2022 Reviewed by: Fiorella Pettit RN - (more content not included)... Normal [facility] T4 SerPl-mCncon 12-04-2022 T4 [Mass/Vol] 2.5 ug/dL Low 5.5-10.2 [facility] Comment on above: Order Comment: Speci men Type: BLOOD SPECIMENOrdering Facility: [facility] Address: [address] [place] [id number] Performed By: #### 3 026-2, 3016-3 ####[facility]CL[facility] [id number] [place] [address] [place] TSH SerPl-aCncon 12-04-2022 TSH Qn 74.400 m[IU]/L High 0.270-4.200 [facility] Comment on above: Order Comment: Speci men Type: BLOOD SPECIMENOrdering Facility: [facility] Address: [place] [address] Result Comment: If t he patient is , TSH reference range varies by gestational period: First Trimester (weeks 9-12): 0.180-2.990 mIU/L Second Trimester: 0.110-3.980 mIU/L Third Trimester: 0.480-4.710 mIU/L Isidro Esteves et al. A Practical Approach for the Verifications and Determination of Site- and Trimester-Specific Reference Intervals for Thyroid Function tests in . Thyroid, 2019:29:3:412-420. Regan E, et al. 2017 Guidelines of the [place] Thy[employer] for the Diagnosis and Management of Thyroid Disease during and the . Thyroid, 2017:27:3:315-389. Performed By: #### 3 026-2, 6-3 ####[facility]CLIA [id number] [place] [address] [place] T4on 10-20-2022 T4 [Mass/Vol] 1.40 ug/dL Critically low 4.80-13.90 [facility] Comment on above: Performed By: #### T 4, TSH #### [facility] [address] [place] [address] Dr. Maeve Rodríguez TSHon 10-20-2022 TSH 100.298 uIU/mL Critically high 0.358-3.[address] [facility] Comment on above: Performed By: #### T 4, TSH #### [facility] [address] [place] [address] Dr. Maeve Rodríguez Thyroglobulin and Thyrogobul in Ab panelon 07-14-2022 Thyroglobulin [Mass/Vol] 7.2 ng/mL 1.6 - 59.9 ng/mL [facility] Thyroglobulin Ab Qn 1.2 [IU]/mL <14.4 IU/mL [facility] Thyroglobulin Ab Qn <4.0 IU/mL [facility] Thyroglobulin, Serum 5.1 ng/mL 1.6 - 5 0.0 ng/mL [facility] Operative Reporton Operative Report SURGERY DATE: 05/08/2022 SURGEON: Elena Rey Jr., M.D. PREOPERATIVE DIAGNOSIS: Multinodular goiter POSTOPERATIVE DIAGNOSIS: Multinodular goiter OPERATION: Total thyroidectomy ANESTHESIA: General BLOOD LOSS: Less than 100 cc GROSS FINDINGS: This is a 41-year-old white female with a history of enlarging thyroid nodules on both sides greater on the left. The patient has been evaluated as an outpatient and as a result of the enlarged nodules and uncertainly of the nature of the mass, complete removal is recommended. Intraoperatively, there are large nodular changes of the thyroid gland bilaterally. Recurrent laryngeal nerves were identified bilaterally. Parathyroid glands at the superior aspect on the right were identified and maintained. Other parathyroid glands were not definitively identified. PROCEDURE: Jerardo was brought to the Operative Room Suite at [facility] at which time, general anesthesia was administered via endotracheal tube. The patient was placed in supine position with her head placed into a mild amount of extension. The anterior neck was demarcated on proper incision placement. The anterior neck, upper chest, lower face were then sterilely prepped and draped in normal fashion. With this completed, a curvilinear incision was placed transversely in the neck between the sternocleidomastoid muscles. Vertical dissection was completed through the level of platysma using electric Bovie cautery. An anterior jugular vein identified on the right side which was divided and tied. Platysmal flaps were then developed superior and inferiorly using electric Bovie cautery and blunt dissection. The platysmal flaps were then suspended using retractor. With this completed, the strap muscles were identified. The strap muscles were bluntly dissected in a midline raphe and divided using harmonic scalpel and bipolar cautery. This was completed both down near the area of the sternal notch all the way up to the thyroid notch. Residual hemostasis achieved using bipolar cautery. With this completed, the strap muscles were divided at the superior one-third tangentially using electric Bovie cautery. The strap muscle was then laterally retracted. With this completed, attention then turned toward the left thyroid lobe. Blunt dissection was completed circumferentially around the area of the thyroid lobe on the left side. The vascular contributions at the superior aspect were identified. These were divided using surgical cathy and harmonic scalpel. This was completed to elevate and deliver the superior pole in an inferior fashion. Lateral soft tissue attachments were divided using harmonic scalpel. This was completed all the way down to the inferior aspect. Blunt dissection allowed the gland to be rotated onto the anterior tracheal wall. The inferior vascular contributions are identified and these were divided using surgical cathy and harmonic scalpel. Recurrent laryngeal nerve was then identified, stimulated and found to be intact. The gland was then further bluntly dissected from lateral to medial all the way to the posterior capsule on the anterior tracheal wall. This dissection was completed using blunt dissection with stimulation revealing no nerve involvement. Hemostasis achieved using harmonic scalpel and bipolar cautery. The gland was rotated onto the anterior tracheal wall where the posterior capsule was taken down using harmonic scalpel. The isthmus was divided on the right side of the trachea. The entire left thyroid lobe and isthmus were sent for pathological analysis. Neck was irrigated with copious amounts of sterile saline. All residual hemostasis achieved using bipolar cautery. Stimulation of the recurrent laryngeal nerve found it to be intact and working fine. With this completed, attention was then turned toward the right thyroid lobe. Once again, strap muscles had been divided. The gland was medialized. Blunt dissection was completed up toward the area of the superior pole. Vascular contributions were identified and these were divided using a combination of surgical cathy and harmonic scalpel. The superior thyroid lobe was then released. Lateral dissection was completed to remove the fascial attachments off the lateral aspect of the thyroid lobe. These were divided using harmonic scalpel. Anterior vascular contributions were identified going into the gland. These were stimulated, maintained, no involvement of the nerve. These were divided using harmonic scalpel and surgical cathy. With the gland medialized, the recurrent laryngeal nerve was then identified. All dissection was completed with the tissue taken away from the recurrent laryngeal nerve. A portion of the gland was divided in the cricothyroid membrane region. The entire right thyroid lobe was then removed and sent for pathological analysis. Residual hemostasis achieved using bipolar cautery. Stimulation of the nerve revealed it to be intact and functioning well. With this completed, the neck was i (more content not included)... Normal [facility] Comment on above: Result Comment: Elec tronically Signed By: Troy Soto DO\.br\Date and Time Signed: 05/23/22 17:45 EDT Coding Summary.on 05-21-2022 Coding Summary. [id number] Gh 0bWw+PGhlYWQ+CE9ONXIwU 60vpVKbnQ8YH3vHDE2PPDK GGKCWZD9FXI6jvAX7GHydB 2VybiAv KhshpZHxUD29BOb8URV6yF fdWIivjB7uuJFqH7j9AqNg XI73dN52FYsuMEOiPuR1Ce ZpbjsgbWFy Z0ztGfUmrQPvJjz+PHRhYm xlIHdpZHRoPScxMDAlJyBz xJlpZE6uWe5pLFEjEEBykS xhcHNlOiBj e0xuNROuIPrmCZ8jnIfvF1 LmfVP3XADlj6s9Tw12qJB+ HHAhECO0dOjvUIkkh304Yp Yxa7wiZVL5 kFMoLMppVVV9Q77ql4O2IG KqHNBwTTL5oXU1aI2ayCni rsdoT1LiqDDeExQ5QRJ8pM AffM6rfZhk dxqvdH1qTjp+L61NMC3AVN LMRQ5TVxz5T0BcWklhzJX+ GP20UJCqQA37kOGdrSOvr6 sfcXp0HqHm OFQpKDW7dUhkQOael2BlER TcU99nhFFlw7S9GGHpwUpj kSTvNuNzkBV7mN4dYDpvzd sae1vnbgju Mndyi0binq41oF18P64fBI crZCXoEZF5RRHoKGZazJbs jw1jiZ8qVq0+OEsid8ocm2 bafGm7SjXj EOHnlyFybRywMRP2c4UnZn 62R2QylIgik6JjChf8jg61 eYSxy0N1rPH1DLxdDLKofS 6kMLlfKcH5 TLBlOuVgpP25gZErXKruRn 1atWqqyCybWS8mZZCytwwy PQYcyG7vQWWdfZOkaRwqYR 4wNTBpbjtm f981RiYtDLJ2MMLgmOJsY2 ZeeS1bKtQyULAwCRJqO7Jr lKYvPGguO842VWnfYeN9DS BtcuSiO0Cm ZKXwjFweZqS7b6D9Hn5Pu9 CldjnnMBH7RVlqSAPaAlD0 JxLvFvB4Z7SjXpf7RQXriY otSH2jW2Bw JFEtwajrbvkxqHQ4FJUuAM ZbwY54vVGwRMeeFz6he3C4 d149ZVRySGXrpL05Ob9beY ogMTBwdCBU tV9qxslwk1nbbiagIrLnJQ XgXKn7KCo9VDJxgYjhUkUj MVJ1WrK0WEW8lBDviL1viB tvnhrbwI4p Oyc+X62vuF3bNTB8QWD7fi wdHXEnqhOnBA60DC96X8Ly PjwvdGFibGU+PGRpdiBzdH dbJT5cPxXe x0vlo8WmGNfpE4SfDAQzFZ yhLii5TVEjDSW1lDO1iH2g LUIeWBclk2D5wIH0Q4Lslq Lwup4xr8vs ZVLoHEoqU85czFAur6O4NH LcyMP1YYOliSojOeOdrS66 Oyc+UCUrkKlpl4ZuLbirq7 lff1sesVd9 DmMpBVUetvRmbVnaYIQ6m1 TxGi03C69dMGsoRHJxKPFz NQXoBGKxkCztjn8cxP9vQu 8+PGNvbCB3 gNU4yW0kFFAzQdG7OEqvB3 90RiXvlZAwSnlaw0bya1sw eQd7YiQiHUCqxiEtkLbuVY I5m2QsLy49 Q81sTWiaZQQaKZFiRIFsCC VnnYnoqz2qfI2yXz4+PC9j p1ogjt59vE90gTH+PHRkIH P2yAtaRYso WBBcvS8qKQzsEiQ8LXIbCg DvyO30lXQzWVveJv9jyAmv sXvkJT5gXMRwtgaqy181Tc Yvz8erGVDj pLLvBVjbAHR1Q02hh9Q1UP UtUUFfAEA0fXO3cJ9gdYmd bjogbGVmdDsgdmVydGljYW bgRGaaQ003 IHRvcDsnPlBhdGllbnQgTm LuQZr8G7XhCln4UEHvsUku HS3vrOIpDWpmEz1rjBzefR jxHE6vIBYs uaoen797HuUzq0cdIDHpjW CaDXdoWMG4H25db4G4XTCz YQEhZRO5dVN4eK2qeWttfk ogbGVmdDsg kzXsqLqvJQgpKGcyI124IH RvcDsnPkJpcnRoIERhdGU6 ZQ78TZ82bUGrx4O6qYK0N5 BhZGRpbmct wdebmCB3RYDgAJQzsC95Zg 0joCnwKi8cKGTaJZT0FUAi aSQcL1SbpL5dWoSbACWoRB ThK7WehGOj BWotM149TUrzAlU5CSQlmg OiC3DiMNAchDbsVqA6u3G0 Xt0WT7L6HD26JK93vLByz6 D7dWE3E4To DGIfnolmgcthoXE8ZHRcYM DqfH92Ld6hnCdzPa8pKREq ZTS8CSEcgBYyI4ZzyK8mDk AjMDAwMDAw A2KozASvYUdkW236IMkbPe N7LACcqgSnY0RhGRQhuDsd SvG4r1P6Ag2MTQz5PA98CK 55fWJra9C1 fKC4Z1VdYCKtyjotilltyP H9BRDhDNRygD58Zb1jgQng Ja2rNOUcYBX0TGZswNTlI3 RqvN4vSdUn DMQxSKEsW4MwcBAeDJlyH8 63YQumDpV7OAKgkbLcW8Iu ZVTdeKcnKiA9y2A5Gr1UMP MhEU91VBU2 uTZ8IJ24IF56H1PlFtebqZ FibGU+PHRhYmxlIHdpZHRo KVikEYLcCaEqpWwtMH2wEo 9yZGVyLWNv xHopkILoQmYcl6iqPHKvFN hoVZ4axNdaB2OcfKO2ZAMs x8v8Lx16A58aL2KhfJK+PG OpyYU4bNJ0 lX8lZoVsAqE6PTxjZ282Um ZhcGCuScmrp0ilj2adiBx0 UjY6DVIsniSsqUtiPRG5h8 HtEf61P64q IHdpZHRoPSIxNSUiIHZhbG fnpr4emF7tPl1+PGNvbCB3 yUA8pZ3tGuPtSaV3CViqY1 49InRvcCIv Olqhj0bug3uvpWj4PjBlEG ObtlKrkGahAIK1j7SiGd97 T4HtjRycx3FvXol2fi71yG Sio2G4kHO1 I3EhAMCczukyzZHzeOnpVG 9pHIQrtizxOAMjsX2tNPSr O2l1XtBwBbM1SExfH5Dmpx N4NIDzcJVi OCrsNUI7M72my0L2CRJqIK DbPWO9sFF8kS4qyRfgrnqj bGVmdDsgdmVydGljYWwtYW wiV445HBAb wCgkCMPxkV6eOGYvdWPwhC mxBT8nILCsmvswLmnBH8tZ HnFeLCzZGQlOJR19KS34gX Haq7E0xLD1 M6EuCJDupybjssiaaWI7YP BhRONjuM96jHXrNHrnZl5s f2C8s506CWZsSKEvgU16Ub 9udDogMTBw wKCGqE9qpbpoo7pimhlnAy IoNHKhEEb9AWj5ALXbvLlo KdWlIDL5MeM1NHJ3vBSwlS 1hbGlnbjog aO8qPzi+LOFzWLblXMe2AF wvdGQ+NEZeDAJ8aQvqYNsj GYJilB8tZPAzV9y6LxZtWl O4SWfjN4Uu KIHpgzjyVx42xO0xEhXgWn S1MFgsN2JrnpW0XTIonHKh BSduWWY4I96th4Z3IGWwJK KcUIY3gSP8 xG7qmEutxaymrWYqdEljbe RlrLpeHMvqHHjiB380IVAa mVckNhZhGAcnZUQjTL37CC 99pFAos4J8 dRF1I3OgODDxpuscjsbrzE F0DKJrUJLqtA73pVVmCPiy Eb2up5L3f651TFQiLQDngZ 59Bp3jdDfh DQWneXTVpS6vmxtds3upxj lqPyPvAYOqCBf1UFh6QKUu kKrnLyUeUHG3IrC6AUE0wX ZotX1xdSfp txckkD4aQyi+RmVtYWxlPC 85UP30lVBvx1W0iEB8A3Gn WYLstkhbwhbafPZ6WXTpZN ImeX44cFTd AYufTb8ds1D0p691VZPkTL LzaB27Cu3sjGvaXQDhrDKA bT5rvicdc4vlvftbOwEuWL LeHRw0FUw7 TOZgzLymHxLaMSZ8TgL9BU D7jLUeyN8efRvepdvvtW0o Oyc+YI9xiEgpwV7elO9LFN 1lIERheSBT gKXaPZC3YK69AK78E7RzMg wvdGFibGU+PHRhYmxlIHdp ZHRoPScxMDAlJyBzdHlsZT 8xFp7oUACt KFIfuQmicHMdYxYtz2laSD VfVAgjKG5bnJzcC7YotEB7 LLKvg1k1Lp32Z63fX6BoqT A+PGNvbCB3 vMI8rM0kKdOeAkB3MUegI2 86RoZjmDWkJhjsk6hno2dz tFi7RtMuRVHscyDohZcxPF B8k6UrHy21 R92iLKwxBIPcYPVpMCVvJI IfsAczqk2pqZ4nDk3+PGNv aOB0lAK5dK5wTsZkUwR2HT qfU176LiKz cODjKvdbZ17fH2RxvFI+PH SbRde6ZKIugEduQN8jhNPv LNctVf5lIQP5IdOkZcOfHO rvK3IuPEHv qafcqerlrCF0FNUfTNQowU 42Ne3jnCdbDa5mZPJdFBO7 CTWdoAEeB4DjvT3fZyXwYF XqBMHwK2Xs rMGcVRqbO824BSkpKlW5EB FuvaShC1AfJCDkmMngUjL0 b2O8Jr9WpApwpBBsER4qEn YnJIl9T2Xo Biv5NBIgnGzkNW7zuIFdLW llBy6kkTcozDumXU9oZTTl etwqu818XjQlj9pbYKIsqE QgVGltZXM7 V71qx0C6SDRgXWZnAVZ0dG U5zJ5kzEwzoingtQFjoXbs ifUqcJnaSYkwFOdhA894LM RvcDsnPkZJ Xpb1O6UlHus7CJXbuAcmLT 1dgALzZXqdMn0etFeioAjd KX5jXKHpkzyjd714CuHas8 xkIDEwcHQg BZtmTTO0N12oy5X7BOKaLE NqXSS5kBD9eB1jiEzqtjkr bGVmdDsgdmVydGljYWwtYW xoJ751TZYc zJsbHu2XOec4Y6UiLlp0GL VasBhhLX0mxXOnHEvtLq7b aNkntZalBB0kVSFrwixml2 66LnTnf1ky YMOzkKXrBHfcEUV7I55gx6 Z0FWFvSYUaFOF2hHV8dF1c bGlnbjogbGVmdDsgdmVydG ljYWwtYWxp I726JCPkjMkpUyDyjYLgTo wvdGQ+HC14wm22O9DjZdiw Ita0TRFrAHX7tAB7fJ9nNF BcYGqez3J6 bGU9 (more content not included)... Normal [facility] Pathology Reporton 2 Pathology Report [id number]. [id number]:127 Normal [facility] Operative Reporton 2 Operative Report SURGERY DATE: 05/08/2022 CO-SURGEON: Troy Soto D.O. GAME AND [employer] PROTECTOR: Caron Singh CST PREOPERATIVE DIAGNOSIS: Bilateral thyroidectomy with multiple right-sided thyroid nodules and a large left thyroid mass and bilateral thyromegaly POSTOPERATIVE DIAGNOSIS: Bilateral thyroidectomy with multiple right-sided thyroid nodules and a large left thyroid mass and bilateral thyromegaly OPERATION: Total thyroidectomy ANESTHESIA: General endotracheal COMPLICATIONS: None FINDINGS: A 9 cm left thyroid with a 7.2 cm mass inferiorly and right thyromegaly with 2.4 and 1.8 cm mass. INDICATIONS: This 41-year-old woman presented with severe neck discomfort and dysphagia secondary to severe bilateral thyromegaly, multiple right thyroid nodules and a very large left thyroid mass. Co-surgeon was necessary due to the severity of the patient's thyromegaly as well as the very large size of her left thyroid mass. PROCEDURE: The patient identified in the Holding Area and taken back to the Operating Room where she was placed in the supine position. After induction of general endotracheal anesthesia using recurrent laryngeal nerve monitoring endotracheal tube, the neck was prepped and draped in a sterile fashion. A 10 mm transverse incision was made following relaxed skin lines of tension. Dissection was carried out with electrocautery through the platysma with electrocautery and subplatysmal flaps were raised superiorly to the thyroid cartilage and inferiorly to the clavicles. A thyroid retractor was then put in place. The patient's trachea was markedly deviated to the right because of her very large right-sided mass. The midline of the strap muscles was identified and opened using electrocautery and harmonic scalpel. After the strap muscles, finger dissection was undertaken to free the strap muscles from the anterior and lateral left side of the thyroid. The strap muscles were then transected in order to allow adequate exposure for safe dissection. The superior and inferior strap muscles were tagged with a 3-0 Vicryl suture to facilitate closure at the end of the case. Attention was first turned to the superior pole. The superior pole was bluntly dissected exposing the superior pole vessels. These were hemoclipped and transected with harmonic scalpel. A blunt finger dissection was then undertaken around the circumference of the mass extending inferiorly allowing it to be rotated out of the neck. This gave exposure to the rest of the superior pole as well as the inferior pole fibrovascular attachments of the gland and the tracheoesophageal groove. Once the gland was rotated anteriorly, dissection of the vascular and fascial attachments of the gland continued with hemoclipping and transecting of multiple very large caliber vessels which were present due to the very large size of the gland and the patient's mass. The recurrent laryngeal nerve was then visually and electrically identified in the tracheoesophageal groove and found to be electrically intact and with this accomplished, the remaining fibrovascular attachments of the gland were dissected first away from the neck and then from the trachea. The gland was then rotated anteriorly until the isthmus of the thyroid gland was free of the trachea and it was then transected with harmonic scalpel. The left neck was then irrigated and there were no active bleeding vessels evident. Attention was then turned to the right gland. Again, the gland was grasped with two Allis clamps and retracted to the left. Blunt dissection was performed freeing the strap muscles from the gland and they were retracted laterally. The superior pole was dissected in a subcapsular fashion exposing the superior pole vessels which were dissected, hemoclipped and transected with harmonic scalpel. The middle thyroid vein was identified and hemoclipped and transected with the harmonic scalpel. Then the gland was rotated medially with positive identification of the superior and inferior parathyroid glands as well as identification of the recurrent laryngeal nerve in the tracheoesophageal groove. Blunt dissection was then continued in a subcapsular fashion preserving both the parathyroid gland and the recurrent laryngeal nerve and the fibrovascular attachments of the gland were transected after hemoclipping as necessary and then with harmonic scalpel. The gland was then dissected away from the trachea with care taken to preserve the recurrent laryngeal nerve which was in intimate association with Rainey's ligament and the gland was removed and sent for pathologic analysis. The right neck was then irrigated and there was no active bleeding blood vessels evident. A Valsalva maneuver was performed in order to help identify potential bleeding and there was none identified. Both recurrent laryngeal nerves were identified and found to be both electrically and anatomically intact at the end of the procedure. The wound was then copiously irrigated. A #7 round Corey-Lemus drain was placed throug (more content not included)... Normal [facility] Comment on above: Result Comment: Elec tronically Signed By: Elena Rey MD\.br\Date and Time Signed: 05/15/22 08:24 EDT IntraOperative Documentson 1 IntraOperative Documents [id number]:127 [facility] Main OR Intraoperative Recor don 05-13-2022 Main OR Intraoperative Record IntraOp Document Type FT Summary Primary Physician: Elena Rey MD Finalized Date/Time: 05/13/22 14:29:16 Pt. Name: JERARDO ZENG/Sex: 1980 Female Med Rec #: [id number] Physician: Elena Rey MD Financial #: [id number] Pt. Type: A Room/Bed: S333/01 Admit/Disch: 05/08/22 09:55:48 - 05/09/22 10:25:00 Institution: Case Times FT Entry 1 Patient Times In Room 05/08/22 12:35:00 Out Room 05/08/22 15:46:00 Procedure Times Start 05/08/22 13:13:00 Stop 05/08/22 15:31:00 Anesthesia Times Start 05/08/22 12:35:00 Stop 05/08/22 15:46:00 Last Modified By: Lexx Tan RN 05/08/22 15:46:07 General Comments: 05/13/22 Chart opened to review and send charges LRoth CSFA Case Attendance FT Entry 1 Entry 2 Entry 3 Case Attendee Josue ARANDA, Robi Rey MD, Caron Lopez CST Role Performed CLIP WRAPPER Surgeon - Primary DYNAMOMETER TESTER ENGINE/SA Time In 05/08/22 12:35:00 05/08/22 12:35:00 05/08/22 12:35:00 Time Out 05/08/22 15:44:00 05/08/22 15:20:00 05/08/22 15:44:00 Procedure THYROIDECTOMY(.), NECK THYROIDECTOMY(.), NECK THYROIDECTOMY(.), NECK MASS EXCISION AND MASS EXCISION AND MASS EXCISION AND EXPLORATION(.) EXPLORATION(.) EXPLORATION(.) Comments Dr. Fish supervising. Out for lunch [id number] Last Modified By: Purvi Lira CST, RN, Purvi Jeter CST 05/13/22 14:24:39 05/08/22 15:44:25 05/13/22 14:24:39 Entry 4 Entry 5 Entry 6 Case Attendee Dominick OERLLANA, Lexx Canchola RN, Yariel Schofield Role Performed Typing Bookkeeper - Primary Typing Bookkeeper - Primary Typing Bookkeeper - Primary Time In 05/08/22 12:35:00 05/08/22 12:35:00 05/08/22 12:35:00 Time Out 05/08/22 15:44:00 05/08/22 15:01:00 05/08/22 13:30:00 Procedure THYROIDECTOMY(.), NECK THYROIDECTOMY(.), NECK THYROIDECTOMY(.), NECK MASS EXCISION AND MASS EXCISION AND MASS EXCISION AND EXPLORATION(.) EXPLORATION(.) EXPLORATION(.) Comments Preceptor. Out for Orientation. Out for Orientation. Out for lunch [phone]. Out of lunch [id number] lunch [phone]. Out of room for training room for training [id number]. [id number]. Last Modified By: Dominick RN, Lexx Tan RN, Lexx Tan RNLexx 05/08/22 15:44:25 05/08/22 15:44:25 05/08/22 15:44:25 Entry 7 Entry 8 Entry 9 Case Attendee Genny ORELLANA, Francine Gonzalez, Addis Singh CST, Nikita Role Performed Typing Bookkeeper - Relief Typing Bookkeeper - Relief Scrub - Primary Time In 05/08/22 12:45:00 05/08/22 12:45:00 05/08/22 12:35:00 Time Out 05/08/22 15:01:00 05/08/22 13:30:00 05/08/22 13:13:00 Procedure THYROIDECTOMY(.), NECK THYROIDECTOMY(.), NECK THYROIDECTOMY(.), NECK MASS EXCISION AND MASS EXCISION AND MASS EXCISION AND EXPLORATION(.) EXPLORATION(.) EXPLORATION(.) Comments Preceptor Orientation. Out of Preceptor room for training 1330-end of case. Last Modified By: Dominick ORELLANA, Lexx Tan RN, Lexx Li RN 05/08/22 15:44:25 05/08/22 15:44:25 05/08/22 15:44:25 Entry 10 Entry 11 Entry 12 Case Attendee Rani KAUFFMAN, Karely Humphries RN, Troy Perez DO Role Performed Scrub - Primary Typing Bookkeeper - Relief Surgeon - Assist 1 Time In 05/08/22 12:35:00 05/08/22 12:45:00 05/08/22 13:05:00 Time Out 05/08/22 15:44:00 05/08/22 15:01:00 05/08/22 14:55:00 Procedure THYROIDECTOMY(.), NECK THYROIDECTOMY(.), NECK THYROIDECTOMY(.), NECK MASS EXCISION AND MASS EXCISION AND MASS EXCISION AND EXPLORATION(.) EXPLORATION(.) EXPLORATION(.) Comments Orientation Orientation Last Modified By: Dominick ORELLANA, Lexx Tan RN, Lexx Li RN 05/08/22 15:44:25 05/08/22 15:44:25 05/08/22 15:44:25 Entry 13 Case Attendee Winter Joel Role Performed Anesthesiologist Reinforcement Maker Time In 05/08/22 13:17:00 Time Out 05/08/22 13:55:00 Procedure THYROIDECTOMY(.), NECK MASS EXCISION AND EXPLORATION(.) Comments Dr. Fish supervising Last Modified By: Dominick ORELLANA, Lexx Esteves 05/08/22 15:44:25 General Comments: Bean Brown, Nuvasive Rep, in attendance 1235-end of case. REYNA Vickersvoice systems engineer Protocols FT Pre-Care Text: Implements protective measures prior to operative or invasive procedure, confirms identity before the operative or invasive procedure, verifies operative procedure, surgical site, and laterality Entry 1 Procedure(s) THYROIDECTOMY(.), NECK Patient Identity Birthday, Blood Band, MASS EXCISION AND Verified (select at ID Band Check, Patient EXPLORATION(.) least 2): Participation Consents / H and P Anesthesia Consent, Operative Site Present Verified HandP, Surgery/Procedure Marking Verified Consent, Transfusion Consent Surgical Site Yes Laterality Verified n/a Verified Procedure Verified Yes Correct Patient Yes Position Verified Availability Equipment, Medication Prep Dry n/a Verified (If Applicable) PreOp Antibiotic No Time Out Robi Salas CRNA, Given Participants Krissy ANN, Francisco Watts CST, Genny Chandler RN, Lisa Guidry K (more content not included)... [facility] CHEMISTRYOrdered By: SYSTEM SYSTEM on 05-09-2022 Calcium [Mass/Vol] 9.0 mg/dL Normal 8.9 - 11. 1 mg/dL [facility] [place] Remisol Calciumon 05-09-2022 Calcium [Mass/Vol] 9.0 mg/dL Normal 8.9-11.1 [facility] Comment on above: Performed By: #### 2 [id number] ####[facility] [address] [place] [address] Consent for Anesthesiaon Consent for Anesthesia [id number] 0CD:127 [facility] Discharge Instructionson Discharge Instructions [id number]. 00CD:127 [facility] Inpatient Clinical Summaryon 05-09-2022 Inpatient Clinical Summary [facility] [address], [place] [address] Clinical Summary Person Information: Name: JERARDO ZENG Age: 41 Years : 1980 Sex: Female PCP: NEVIN LARA CNP Marital Status: Single Race: White Ethnicity: Non- or Language: Khmer Visit Id: Visit Reason: THYROID SURGERY Speciality: Acuity: Enc Type: Observation Med Service: Medical Arrival: 05/08/2022 09:55:48 Discharge: Dispo Type: Address: [facility] 08/04 [facility] [id number] Provider Notes: Diagnosis: Mass of thyroid gland; Thyromegaly Problems No Problems Documented Smoking Status: Functional Status: Sensory Deficits: History of Falls: Mobility Assistance Prior to Admission: ADLs: Minimal assistance Current Level of Assistance for Self-Care/Mobility: Cognitive Status: Oriented x 3 Allergies penicillins (child) Measurements: Height: Weight: Blood Pressure: 128 mmHg / 78 mmHg BMI: Procedures No Procedures Documented Immunizations No Immunizations Documented This Visit Final Med List: albuterol (albuterol CFC free 90 mcg/inh inhalation aerosol) 1 Puffs Inhalation every 6 hours. amlodipine (Norvasc 5 mg Tab) 1 Tablets By Mouth every day. Care Team Members: Attending Physician: Elena Rey MD Consulting Physician: Referring Physician: Elena Rey MD Follow up: With: Address: When: Elena Rey [address], [address] [place] [address] Business (1) In 1 week 05/16/2022 With: Address: When: NEVIN LARA [address], FAX [phone] [place], [place] [address] Business (1) Patient Education Information: [facility] Inpatient Patient Summaryon 05-09-2022 Inpatient Patient Summary JERARDO ZENG :1980 Visit Date:05/08/2022 Inpatient Discharge Instructions Your Care Team Admitting Physician - Elena Rey MD Referring Physician - Elena Rey MD Reason for Your Visit THYROID SURGERY Your Diagnosis Mass of thyroid gland Thyromegaly Tests Performed Calcium Level Total UA With Cult Reflex This Is Your Medications List albuterol (albuterol CFC free 90 mcg/inh inhalation aerosol) amlodipine (Norvasc 5 mg Tab) Procedure History Biopsy of breast, Cholecystectomy, Cyst - diagnostic aspiration, History of hysterectomy.. Discharge Vitals Temperature (Oral) 36.9 ?C Heart Rate (Monitored) 96 Respiratory Rate 18 Blood Pressure 132/94 What to do next Instructions From Your Doctor Event Name Event Result Discharge Activity Expect mild pain, Expect minimal amount of drainage and/or bleeding, Activity as tolerated Discharge Restrictions No driving for 24 hrs Discharge Diet(s) Regular Call Your Doctor For Temperature above 101.5 degrees, Redness, swelling, or pus at operative site Pending Diagnostic Test Results None Pharmacy Information Other: [facility] Discharge Instructions Antibiotic ointment to incision 3 times daily. Keep neck dry 3 days. Serafin strenuous activity 3 weeks New Follow Up Appointments after Discharge Follow Up with Elena Rey When: In 1 week 05/16/2022 EDT Where: [address] [facility] [address], [address] [place] [address]- Business (1) Follow Up with NEVIN LARA When: In 0 days Where: [phone] [place], [place] [address]- Business (1) Medications What How Much When Instructions Next Dose Unchanged albuterol (albuterol CFC free 90 mcg/ inh inhalation aerosol) 1 Puffs Inhalation Every 6 hours 05/09 resume Unchanged amlodipine (Norvasc 5 mg Tab) 1 Tablets By Mouth Every day 05/10 at 9AM Test Results BMP Calcium Lvl: 9 mg/dL (05/09/22 05:51:00) Allergies penicillins (child) Education Materials Thyroidectomy A thyroidectomy is a surgery that is done to remove the thyroid gland. The thyroid is a butterfly-shaped gland that is located at the lower front of your neck. It produces thyroid hormone, which is a substance that helps to control certain body processes. You may have a: ? Total thyroidectomy. All of your thyroid is removed. ? Thyroid lobectomy. Part of your thyroid is removed. The amount of thyroid gland tissue that is removed during your surgery depends on the reason for the procedure. Reasons to have this procedure include treatment for: ? Thyroid nodules. ? Thyroid cancer. ? Benign thyroid tumors. ? Goiter. ? Overactive thyroid gland (hyperthyroidism). There are two ways to do this procedure. Conventional, or open, thyroidectomy uses one large incision to remove the thyroid gland. This is the most common method. Endoscopic thyroidectomy, a less invasive method, uses a narrow tube with a light and camera (endoscope) to remove the gland. Tell a health care provider about: ? Any allergies you have. ? All medicines you are taking, including vitamins, herbs, eye drops, creams, and mdbr-tyy-aowfkkj medicines. ? Any problems you or family members have had with anesthetic medicines. ? Any blood disorders you have. ? Any surgeries you have had. ? Any medical conditions you have. ? Whether you are or may be . What are the risks? Generally, this is a safe procedure. However, problems may occur, including: ? Damage to the parathyroid glands. These are located behind your thyroid gland. They maintain the calcium levels in the body. Damage may lead to: ? A decrease in parathyroid hormone levels (hypoparathyroidism). ? A decrease in calcium levels. This will make your nerves irritable and may cause muscle spasms. ? An increase in thyroid hormone. ? Damage to the nerves of your voice box (larynx). This can be temporary or long-term (rare). ? Hoarseness. This usually resolves in 24?48 hours. ? Bleeding. ? Infection. What happens before the procedure? Staying hydrated Follow instructions from your health care provider about hydration, which may include: ? Up to 2 hours before the procedure ? you may continue to drink clear liquids, such as water, clear fruit juice, black coffee, and plain tea. Eating and drinking restrictions Follow instructions from your health care provider about eating and drinking, which may include: ? 8 hours before the procedure ? stop eating heavy meals or foods such as meat, fried foods, or fatty foods. ? 6 hours before the procedure ? stop eating light meals or foods, such as toast or cereal. ? 6 hours before the procedure ? stop drinking milk or drinks that contain milk. ? 2 hours before the procedure ? stop drinking clear liquids. Medicines Ask your h (more content not included)... [facility] Inpatient Patient Summary [facility] [address], [place] [address] Patient Discharge Instructions PERSON INFORMATION Name: JERARDO ZENG Date of : 1980 Current Date: 05/09/2022 07:30:42 PHYSICIANS Admitting Physician: Elena Rey MD Primary Care Physician: NEVIN LARA CNP PCP Comment: Discharge Diagnosis: Mass of thyroid gland; Thyromegaly Condition at Discharge: Improved RAMA JERARDO has been given the following list of follow-up instructions, prescriptions, and patient education materials: PATIENT FOLLOW-UP INFORMATION Diet: Regular Discharge Activity: Expect mild pain, Expect minimal amount of drainage and/or bleeding, Activity as tolerated Discharge Restrictions: No driving for 24 hrs Wound Care Instructions: Remove Your Dressing In Days Call Your Doctor For: Temperature above 101.5 degrees, Redness, swelling, or pus at operative site IF UNABLE TO CONTACT YOUR PHYSICIAN AND YOU FEEL IT IS AN EMERGENCY, GO TO THE NEAREST EMERGENCY ROOM OR CALL 911 Home Treatment: Devices/Equipment: Special Services: Additional Instructions: Antibiotic ointment to incision 3 times daily. Keep neck dry 3 days. Serafin strenuous activity 3 weeks Primary Care Physician to provide the following pending test results: None Follow up: With: Address: When: Elena Rey [address], [address] [place] [address] Business (1) In 1 week 05/16/2022 With: Address: When: NEVIN LARA [address], FAX [phone] [place], [place] [address] Business (1) In the event that this physician does not participate in your insurance network, please consult with your insurance company to find a nearby participating provider. Comment: IRAMA JAMIE, have received the attached patient education materials/instructions and have verbalized understanding: Patient Signature Date Clinican/Nurse Signature ___ Date HERE ARE THE MEDICATION CHANGES THAT OCCURRED DURING YOUR HOSPITAL STAY Medications to Continue with No Changes Other Medications albuterol (albuterol CFC free 90 mcg/inh inhalation aerosol) 1 Puffs Inhalation every 6 hours. Last Dose: ___Next Dose: ___ amlodipine (Norvasc 5 mg Tab) 1 Tablets By Mouth every day. Last Dose: ___Next Dose: ___ Comment: MEDICATION LIST PROVIDED FOR YOU IS A LIST OF YOUR CURRENT MEDICATIONS. PLEASE CARRY THIS WITH YOU AT ALL TIMES. albuterol (albuterol CFC free 90 mcg/inh inhalation aerosol) 1 Puffs Inhalation every 6 hours. amlodipine (Norvasc 5 mg Tab) 1 Tablets By Mouth every day. Pharmacy Information: Other: [facility] Comment: PATIENT EDUCATION INFORMATION Instructions: Medication Leaflets: You may receive a survey from [employer] asking you to rate your care experience. Your feedback is important and will help us understand what we do well and how we can improve the quality of care we provide to you, your loved ones and our community. It?s an honor to serve you. Thank you for choosing [facility] IntraOperative Documentson 1 IntraOperative Documents [id number] 0CD:127 [facility] IntraOperative Documents [id number]#1.0 0CD:127 [facility] Patient Education - Texton 1 Patient Education - Text Endocrinology Thyroidectomy, Care After This sheet gives you information about how to care for yourself after your procedure. Your health care provider may also give you more specific instructions. If you have problems or questions, contact your health care provider. What can I expect after the procedure? After the procedure, it is common to have: ? Mild pain in the neck or upper body, especially when swallowing. ? A swollen neck. ? A sore throat. ? A weak or hoarse voice. ? Slight tingling or numbness around your mouth, or in your fingers or toes. This may last for a day or two after surgery. This condition is caused by low levels of calcium. You may be given calcium supplements to treat it. Follow these instructions at home: Medicines ? Take ceiu-dly-tdesfms and prescription medicines only as told by your health care provider. ? Do not drive or use heavy machinery while taking prescription pain medicine. ? Do not take medicines that contain aspirin and ibuprofen until your health care provider says that you can. These medicines can increase your risk of bleeding. ? Take a thyroid hormone medicine as recommended by your health care provider. You will have to take this medicine for the rest of your life if your entire thyroid was removed. Eating and drinking ? Start slowly with eating. You may need to have only liquids and soft foods for a few days or as directed by your health care provider. ? To prevent or treat constipation while you are taking prescription pain medicine, your health care provider may recommend that you: ? Drink enough fluid to keep your urine pale yellow. ? Take fsdx-gzl-qjigwgh or prescription medicines. ? Eat foods that are high in fiber, such as fresh fruits and vegetables, whole grains, and beans. ? Limit foods that are high in fat and processed sugars, such as fried and sweet foods. Incision care ? Follow instructions from your health care provider about how to take care of your incision. Make sure you: ? Wash your hands with soap and water before you change your bandage (dressing). If soap and water are not available, use hand rpg programmer. ? Change your dressing as told by your health care provider. ? Leave stitches (sutures), skin glue, or adhesive strips in place. These skin closures may need to stay in place for 2 weeks or longer. If adhesive strip edges start to loosen and curl up, you may trim the loose edges. Do not remove adhesive strips completely unless your health care provider tells you to do that. ? Check your incision area every day for signs of infection. Check for: ? Redness, swelling, or pain. ? Fluid or blood. ? Warmth. ? Pus or a bad smell. ? Do not take baths, swim, or use a hot tub until your health care provider approves. Activity ? For the first 10 days after the procedure or as instructed by your health care provider: ? Do not lift anything that is heavier than 10 lb (4.5 kg). ? Do not jog, swim, or do other strenuous exercises. ? Do not play contact sports. ? Avoid sitting for a long time without moving. Get up to take short walks every 1?2 hours. This is needed to improve blood flow and breathing. Ask for help if you feel weak or unsteady. ? Return to your normal activities as told by your health care provider. Ask your health care provider what activities are safe for you. General instructions ? Do not use any products that contain nicotine or tobacco, such as cigarettes and e-cigarettes. These can delay healing after surgery. If you need help quitting, ask your health care provider. ? Keep all follow-up visits as told by your health care provider. This is important. Your health care provider needs to monitor the calcium level in your blood to make sure that it does not become low. Contact a health care provider if you: ? Have a fever. ? Have more redness, swelling, or pain around your incision area. ? Have fluid or blood coming from your incision area. ? Notice that your incision area feels warm to the touch. ? Have pus or a bad smell coming from your incision area. ? Have trouble talking. ? Have nausea or vomiting for more than 2 days. Get help right away if you: ? Have trouble breathing. ? Have trouble swallowing. ? Develop a rash. ? Develop a cough that gets worse. ? Notice that your speech changes, or you have hoarseness that gets worse. ? Develop numbness, tingling, or muscle spasms in the arms, hands, feet, or face. Summary ? After the procedure, it is common to feel mild pain in the neck or upper body, especially when swallowing. ? Take medicines as told by your health care provider. These include pain medicines and thyroid hormones, if required. ? Follow instructions from your health care provider about how to take care of your incision. Watch for signs of infection. ? Keep all follow-up visits as told by your health care provider. This is important. Your health care provider needs to mo (more content not included)... [facility] Preoperative Documentson Preoperative Documents [id number] 0CD:127 [facility] Prescriptions/Work Noteson 1 Prescriptions/Work Notes [id number]#1. 00CD:127 [facility] Progress Note-Physicianon Progress Note-Physician Patient: JERARDO ZENG Age: 41 years Sex: Female : 1980 Associated Diagnoses: None Author: Rivas Fish Jr., DO Postoperative Information Post Operative Note: Post Anesthesia Care Unit. Anesthetic utilized: General. Health Status Allergies: Allergic Reactions (Selected) Severity Not Documented Penicillins- Child. Problem list: All Problems Mass in neck / SNOMED CT 118622731 / Confirmed Resolved: Asthma / SNOMED CT 574391027 Physical Examination Vital Signs 05/08/2022 17:00 EDT Hourly Rounding Yes Promise to Return Yes 05/08/2022 16:20 EDT Hourly Rounding Yes Promise to Return Yes SpO2 100 % 05/08/2022 16:12 EDT Temperature Temporal Artery 36.4 DegC Heart Rate Monitored 80 bpm Respiratory Rate Monitored 15 br/min Systolic Blood Pressure 123 mmHg Diastolic Blood Pressure 87 mmHg SpO2 100 % Pain assessment: Pain Assessment 05/08/2022 16:12 EDT Primary Pain Location Neck Numeric Pain Scale 5 = Moderate pain Numeric Pain Score 5 05/08/2022 16:00 EDT Primary Pain Location Neck Numeric Pain Scale 5 = Moderate pain Numeric Pain Score 5 . General: Alert and oriented, No acute distress, No nausea. Adequate hydration.. Respiratory: Adequate air exchange.. Cardiovascular: stable. Neurologic: Normal sensory. Review / Management Condition: Stable. Assessment Anesthetic outcome No anesthetic complications noted. Plan Transfer/ Discharge: Condition stable. [facility] Comment on above: Result Comment: Elec tronically Signed By: Rivas Fish Jr., DO\.br\Date and Time Signed: 05/09/22 09:54 EDT Progress Note-Physician ENT POD 1 Pt fresting comfortably AVSS Drain 8cc overnight AM Ca 9.0 Wound C/D/I. No fluid collection Drain removed. D/C home [facility] Comment on above: Result Comment: Elec tronically Signed By: Krissy ANN, Elena Licea\.br\Date and Time Signed: 05/09/22 07:28 EDT CHEMISTRYOrdered By: SYSTEM SYSTEM on 05-08-2022 Calcium [Mass/Vol] 9.1 mg/dL Normal 8.9 - 11. 1 mg/dL [facility] [place] [facility] Remisol Calciumon 05-08-2022 Calcium [Mass/Vol] 9.1 mg/dL Normal 8.9-11.1 [facility] Comment on above: Performed By: #### 2 [id number] #### [facility] [address] [place] [address] Consent for Treatmenton Consent for Treatment [id number]#1.0 0CD:127 [facility] H&P Updateon 05-08-2022 H&P Update [id number]#1. 00CD:127 [facility] Main OR PACU I Recordon Main OR PACU I Record PACU Phase I Docum ent Type FT Summary Primary Physician: Elena Rey MD Finalized Date/Time: 05/08/22 16:34:29 Pt. Name: JERARDO ZENG /Sex: 1980 Female Med Rec #: [id number] Physician: Elena Rey MD Financial #: [id number] Pt. Type: A Room/Bed: [facility] Admit/Disch: 05/08/22 09:55:48 - Institution: Case Times PACU I FT Pre-Care Text: Identifies barriers to communication and implements measures to provide psychological support Develops individualized plan of care, and ensures continuity of care Maintains patient's dignity and privacy, and maintains patient confidentiality Identifies and reports philosophical, cultural, and spiritual beliefs and values Identifies individual values and wishes concerning care Implements aseptic technique, and administers prescribed antibiotic therapy and immunizing agents as ordered Evaluates postoperative tissue perfusion Implements thermoregulation measures, and monitors body temperature Evaluates postoperative respiratory status Evaluates postoperative cardiac status Evaluates postoperative neurological status Assesses pain control, collaborated in initiating patient-controlled analgesia and implements alternative methods of pain control Verifies allergies, administers prescribed medications and solutions, evaluates response to medications Entry 1 In PACU I 05/08/22 15:47:00 Discharge from PACU 05/08/22 16:17:00 I Outcomes Met? Yes Last Modified By: KEYANA LUGO RN 05/08/22 16:34:17 Post-Care Text: The patient demonstrates knowledge of the expected response to the operative or invasive procedure The patient's care is consistent with the individualized perioperative plan of care The patient's right to privacy is maintained The patient's value system, lifestyle, ethnicity, and culture are considered, respected, and incorporated into the perioperative plan of care The patient participates in decisions affecting his or her perioperative plan of care The patient is free from signs and symptoms of infection The patient has wound/tissue perfusion consistent with or improved from baseline levels established preoperatively The patient is at or returning to normothermia at the conclusion of the immediate postoperative period The patient's respiratory function is consistent with or improved from baseline levels established preoperatively The patient's cardiovascular status is consistent with or improved from baseline levels established preoperatively The patient's cardiovascular status is consistent with or improved from baseline levels established preoperatively The patient demonstrates and/or reports adequate pain control throughout the perioperative period The patient received appropriate medication(s), safely administered during the perioperative period Acuity Level PACU I FT Entry 1 Start Time 05/08/22 15:47:00 Stop Time 05/08/22 16:17:00 Acuity Level Acuity Level I Last Modified By: KEYANA LUGO RN 05/08/22 16:34:25 Finalized By: KEYANA LUGO RN Document Signatures Signed By: KEYANA LUGO RN 05/08/22 16:34 [facility] Main OR Preoperative Recordo n 05-08-2022 Main OR Preoperative Record PreOp Document Type FT Summary Primary Physician: Elena Rey MD Finalized Date/Time: 05/08/22 13:08:16 Pt. Name: JERARDO ZENG./Sex: 1980 Female Med Rec #: [id number] Physician: Elena Rey MD Financial #: [id number] Pt. Type: A Room/Bed: [place] [address] Admit/Disch: 05/08/22 09:55:48 - Institution: Case Times PreOp FT Pre-Care Text: Verifies consent for planned procedure, identifies individual values and wishes concerning care, includes family members in perioperative teaching Entry 1 Patient Times. In Pre Surgery 05/08/22 10:05:00 Out Pre Surgery 05/08/22 12:34:00 Outcomes Met? Yes Last Modified By: Francine Royal RN 05/08/22 13:08:13 Post-Care Text: The patient participates in decisions affecting his or her perioperative plan of care Finalized By: Francine Royal RN Document Signatures Signed By: Francine Royal RN 05/08/22 13:08 [facility] Monitor Recordon 05-08-2022 Monitor Record [id number]. 00CD:127 [facility] Monitor Record [id number]#1. 00CD:127 [facility] Progress Note-Physicianon Progress Note-Physician Patient: JERARDO ZENG Age: 41 years Sex: Female : 1980 Associated Diagnoses: None Author: Rivas Fish Jr., DO Preoperative Information Time patient last ate or drank:=== (NPO since midnight) Anesthesia history: Patient History: No prior problems with anesthesia.. Re-eval prior to induction: Inital eval reviewed: No significant interval change, Surgical H&P documented and on chart. Surgical consent signed and on chart.. Anesthesia results Review of Systems Cardiovascular: Negative except as documented in history of present illness. Respiratory: Negative. Neurologic: Negative. Health Status Allergies: Allergic Reactions (Selected) Severity Not Documented Penicillins- Child., Allergies (1) Active Reaction penicillins child Current medications: (Selected) Inpatient Medications Ordered HYDROmorphone 1 mg/mL injectable solution: 0.4 mg = 0.4 mL, Injection, IV Push, q4min PRN Pain for 5 dose(s), Stop date Limited # of times, Routine, Start date 05/08/22 11:41:00 EDT, 05/08/22 11:41:00 EDT Lactated Ringers IV Goldie 1000 mL 1,000 mL: 1,000 mL, IV, 100 mL/hr, Routine, Start date 05/08/22 11:41:00 EDT, 10 hour(s), Total volume (mL): 1,000, 90.4 kg, 2.07, m2 Lactated Ringers IV Goldie 1000 mL 1,000 mL: 1,000 mL, IV, 150 mL/hr, Routine, Start date 05/08/22 11:00:00 EDT, 6.7 hour(s), Total volume (mL): 1,000, 90.4 kg, 2.07, m2 Phenergan 25 mg/mL Injection: 12.5 mg = 0.5 mL, Injection, IV Push, q2min PRN Other (see comment) for 2 dose(s), Stop date Limited # of times, Routine, Start date 05/08/22 11:41:00 EDT, 05/08/22 11:41:00 EDT nalbuphine 10 mg/mL Inj 1 mL: 2.5 mg = 0.25 mL, Injection, IV Push, q4min PRN Pain for 4 dose(s), Stop date Limited # of times, Routine, Start date 05/08/22 11:41:00 EDT, 05/08/22 11:41:00 EDT Documented Medications Documented Norvasc 5 mg Tab: 5 mg = 1 tab(s), Oral, Daily, Refills(s) 0 albuterol CFC free 90 mcg/inh inhalation aerosol: = 1 puff(s), Inhalation, q6hr, Refills(s) 0, Asthma Histories Past Medical History: No active or resolved past medical history items have been selected or recorded. Family History: Hypertension Father Procedure history: Cholecystectomy ([id number]). History of hysterectomy. ([id number]). Biopsy of breastx2 ([id number]). Cyst - diagnostic aspiration hand ([id number]). Social History Social & Psychosocial Habits Alcohol 04/29/2022 Risk Assessment: Denies Alcohol Use Substance Abuse 04/29/2022 Risk Assessment: Denies Substance Abuse Tobacco 04/29/2022 Risk Assessment: Denies Tobacco Use . Physical Examination Airway: Mallampati classification: II (soft palate, fauces, uvula visible). Respiratory: Lungs are clear to auscultation. Cardiovascular: Regular rhythm. Review / Management Results review: Lab results 04/29/2022 12:32 EDT WBC 7.1 E9/L RBC 4.9 E12/L HGB 13.8 gm/dL Hct 41.9 % MCV 86.1 fL MCH 28.3 pg MCHC 32.8 gm/dL RDW 14.0 % Platelet 252.0 E9/L MPV 9.0 fL Neutro Auto 57.8 % Lymph Auto 35.4 % [place] Auto 5.0 % Eos Auto 1.0 % Basophil Auto 0.8 % Neutro Absolute 4.1 E9/L Lymph Absolute 2.5 E9/L [place] Absolute 0.4 E9/L Eos Absolute 0.1 E9/L Basophil Absolute 0.1 E9/L PT 11.6 second(s) INR 1.0 NA PTT 34.2 second(s) BUN 11 mg/dL Creatinine 1.0 mg/dL eGFR >60 mL/min/1.73 m2 eGFR AA >60 mL/min/1.73 m2 Sodium Lvl 136 mmol/L Potassium Lvl 3.8 mmol/L Chloride 106 mmol/L CO2 25 mmol/L AGAP 9 mEq/L Calcium Lvl 9.1 mg/dL Phosphorus 3.2 mg/dL Magnesium 1.7 mg/dL TSH 0.89 mcIU/mL . Chest x-ray results SINUS RHYTHM POSSIBLE RIGHT VENTRICULAR CONDUCTION DELAY NONSPECIFIC T-WAVE ABNORMALITY Plan [employer] [employer] (ASA) physical status classification: Class II. Anesthetic Preoperative Plan Anesthesia: General. . Anesthetic plan, risks, benefits, and alternatives discussed with the patient and/or family. Patient verbalized understanding. Adverse reactions, complications, and alternatives discujssed. Consent signed and on chart.. Normal [facility] Comment on above: Result Comment: Elec tronically Signed By: Abe Quach DO, Rivas Mendosa\.br\Date and Time Signed: 05/08/22 11:43 EDT UA With Cult Reflexon 2021 Bilirubin Ql (U) Negative Normal Negative [facility] Comment on above: Performed By: #### 1 [id number] ####[facility] [address] [place] [address] Clarity (U) CLEAR Normal Clear [facility] Comment on above: Performed By: #### 1 [id number] ####[facility] [address] [place] [address] Color (U) YELLOW Normal Yellow [facility] Comment on above: Performed By: #### 1 [id number] ####[facility] [address] [place] [address] Epithelial cells.squamous LM.HPF (Urine sed) [#/Area] 0-2 Normal 0-2 [facility] Comment on above: Performed By: #### 1 [id number] ####[facility] [address] [place] [address] Glucose Test strip (U) [Mass/Vol] Negative Normal Negative [facility] Comment on above: Performed By: #### 1 [id number] ####[facility] [address] [place] [address] Hemoglobin Ql (U) 1+ Abnormal Negative [facility] Comment on above: Performed By: #### 1 [id number] ####[facility] [address] [place] [address] Ketones (U) [Mass/Vol] Negative Normal Negative [facility] Comment on above: Performed By: #### 1 [id number] ####[address] [address] [place].plasma/Lithiu m.RBC (Bld) [Mass ratio] 0-3 Normal 0-3 [facility] Comment on above: Performed By: #### 1 [id number] ####[address] [address] Mucus Ql (Urine sed) TRACE Normal [facility] Comment on above: Performed By: #### 1 [id number] ####[address] [address] Nitrite Ql (U) Negative Normal Negative [facility] Comment on above: Performed By: #### 1 [id number] ####[address] [address] pH (U) 6.5 [pH] Invalid Interpretation Code 5.0-9.0 [facility] Comment on above: Performed By: #### 1 [id number] ####[address] [address] Protein (U) [Mass/Vol] Negative Normal Negative [facility] Comment on above: Performed By: #### 1 [id number] ####[address] [address] Specific gravity (U) [Rel density] 1.020 Invalid Interpretation Code 1.005-1.030 [facility] Comment on above: Performed By: #### 1 [id number] ####[address] [address] Type of Urine collection method Couch Normal [facility] Comment on above: Performed By: #### 1 [id number] ####[address] [address] Urobilinogen Qn (U) 0.2 {Cynthia'U}/dL Normal 0.0-1.0 [facility] Comment on above: Performed By: #### 1 [id number] ####[facility] [address] [place] [address] WBC Auto Ql (U) Negative Normal Negative [facility] Comment on above: Performed By: #### 1 [id number] ####[facility] [address] [place] [address] WBC LM.HPF (Urine sed) [#/Area] 0-5 Normal 0-5 [facility] Comment on above: Performed By: #### 1 [id number] ####[facility] [address] [place] [address] URINALYSISOrdered By: Jarrett Rodriguez on 05-08-2022 Bilirubin Ql (U) Negative (05/08/22 12:46 PM) Normal Negative [facility] UA Auto SS Clarity (U) Clear (05/08/22 12:46 PM) Normal Clear [facility] UA Auto SS Color (U) Yellow (05/08/22 12:46 PM) Normal Yellow [facility] UA Auto SS Epithelial cells.squamous LM.HPF (Urine sed) [#/Area] 0-2 /HPF Normal 0-2/HPF [facility] UA Aut o SS Glucose Test strip (U) [Mass/Vol] Negative (05/08/22 12:46 PM) Normal Negative [facility] UA Auto SS Hemoglobin Ql (U) 1+ *ABN* (05/08/22 12:46 PM) Invalid Interpretation Code Negative [facility] UA Auto SS Ketones (U) [Mass/Vol] Negative (05/08/22 12:46 PM) Normal Negative [facility] UA Auto SS [place].plasma/Lithiu m.RBC (Bld) [Mass ratio] 0-3 /HPF Normal 0-3/HPF [facility] UA Auto SS Mucus Ql (Urine sed) Trace (05/08/22 12:46 PM) Normal [facility] UA Auto SS Nitrite Ql (U) Negative (05/08/22 12:46 PM) Normal Negative [facility] UA Auto SS pH (U) 6.5 *NA* (05/08/22 12:46 PM) Invalid Interpretation Code 5.0 - 9.0 [facility] UA Auto SS Protein (U) [Mass/Vol] Negative (05/08/22 12:46 PM) Normal Negative [facility] UA Auto SS Specific gravity (U) [Rel density] 1.020 *NA* (05/08/22 12:46 PM) Invalid Interpretation Code 1.005 - 1.030 [facility] UA Auto SS UA Spec Desc Couch (05/08/22 12:46 PM) Normal [facility] UA Auto SS Urobilinogen Qn (U) 0.5364124 {Cynthia'U}/dL Normal 0.0 - 1.0 EU/dL [facility] UA Auto SS WBC Auto Ql (U) Negative (05/08/22 12:46 PM) Normal Negative [facility] UA Auto SS WBC LM.HPF (Urine sed) [#/Area] 0-5 /HPF Normal 0-5/HPF [facility] UA Auto SS Coding Summary.on 05-05-2022 Coding Summary. CD:[id number] Gh 0bWw+PGhlYWQ+IA6XDKDrX 79eoWScwA6EX6lWUX5QUCL NSKDBED1QQT4vtJJ9AGswC 2VybiAv JnvsjMJrQA75LBl7DQM4zQ lmHFxcyY9lfKRyL2f0CcLj SY33wB76ZCefWNHoPsV7Js ZpbjsgbWFy V9phSrVvkMOnAnx+PHRhYm xlIHdpZHRoPScxMDAlJyBz vZzpKI3xKm0fHDJjWNWpiY xhcHNlOiBj n5ilVJDwJYzfJV8chMstL3 EpcAU1ZCJdr7w8Fv99dHQ+ QVPlUQM6aRdvZArtq662Ro Ghh4njIBD3 rGFxINlqIPG6V25wu7V2VN WbDCBsLHV2iDP4pC4glYuq puuxK5HrhVYyXlG7CIU5lL NiiN5egOat jfxwiP3fLcz+S47CQO1YMH HPYT0ZAlu5R6JnVwnexLH+ VM94MEKuHG04vYBvaNMzi4 kwrRp4BgSb MWNlBAJ1hPqkGUawv5CaEM NwR64mdOVyx0I6QLGafUui xXNvSiTkuOH3xT2pGEojzd ahm7surlqh Xqgns7uily16bX56Q22dBA teLIJmIXL0CGMbQBAnbUpf np6wxI6yUi7+MYdeb3ptt6 vlwNd8OtNt UANedrPyrYsmBXZ4l6GfMc 60K5PicNfaj6ShAkj3cj92 wTYhq8M3oRL6NJiiUEXvwU 6hCDbbDgB2 HNUzQpXjrQ03uDYaLBplCe 2xpAcjcZmnOV6wGJYlptbd BHTqpL2kKXDjnRLjrLokAS 4wNTBpbjtm d281JmNvUGM5ABToyTRwP7 DgdC0nBqDbLLMdQJFqF9Ll nUJhHZsfH744CCrgQtR9QO WrzwPvL3Oq BRXasAtiItQ2k7N5Fx5Tw4 HodsbfXOS3ARgjBWOvRoNl YoWcAoV3F9RhWcs0CSMhrH wfYB5xO0Nt BZFqranearlfqRW5DITqLY BypJ96xJPzGOphJx6hn0W5 b152QEGpZLEzaA79Xb5abT ogMTBwdCBU jL9dtcbjt6jexfhsUyAlYP QbXJq4HMe1HTMyhBwaWvGb XNY0KtN5IOD8kKNgnB1rrR vvzpgciI4x Oyc+Z35rrL7kRUE5DDL3lw qiNCHemzCuFO79CI72B2Lm PjwvdGFibGU+PGRpdiBzdH vaBN4iPcMl a3nlg7UqZKujJ8QcKNMoGJ meHhw9QZDgCNH2cIW9aN3m EQQeBNxzt5T7oUG7H4Wajo Ntgi3dz3we JJLyQDyjB09uhURiq3Z8YB UecBT2RCRziYykDiRqxZ41 Oyc+JDWiuXcle7LzEumrz7 oek3cpxPs3 LmRmGDBetcQkuHkcWHC8n4 FdNh94R33tMDizVJTfEIXh YCOjKDZscEicxb0eqI0qJc 8+PGNvbCB3 kVM5rW5aVLEvUuK2IHhtY1 62YwCijDDbWeapg1tcw4vw gEr0JkCiPUVemzFnkTlnKE C6v7ByTa37 K04rULnjRYVrFZHeXRChYS FrmYdsuq1bwZ1jDz1+PC9j h0muze88kR55mFU+PHRkIH Z0vQfoFSre AOErrU4fZHyxCaK1VORxYs McvJ18sYYfEQmjHo6fkMyo wDkoUO5zLSDyrnwgm380Ms Phz4ojZVDj rDIoERgyRLF8V82cq4B4JS KrDFUeCLG0lFA8eP2pzTzh bjogbGVmdDsgdmVydGljYW pvQJrtI654 IHRvcDsnPlBhdGllbnQgTm EsPMc1Q8AmKcg6BJSmbEcm AK5eeAGrZIhjPw0qxNsceH ziIB0dKFNg amknl705GwBeb0vdFQRaqX CnVJsjJLK1Z53qk7E1AVZx SXWbKFJ6jKF6wP2yiLmjlq ogbGVmdDsg fkAlzTvsUAjzFIdcK248HJ RvcDsnPkJpcnRoIERhdGU6 GN72YY64dBSkm1E6rQC6D7 BhZGRpbmct rtiufXM2RKHvPHRhoW47Mp 4hfVexHo6qRJWfMEU3FMYe hQHoU8NzvY3tPcZtJXYkPV LsP0MktXBq OCeaJ880JTvrRaZ4WISngh BrA4GaCXEfnVgbBoN6i0Y4 Xu3LJ3O3WY66QU55hCQyj1 O7xST3W1Wi MMTicjddfibzsGR4AIVbUE HlgB69Cz4fyGhhEi5hZBBd LNK2AOYecZFzR0VhrE9rYu AjMDAwMDAw R0IzfIQpPHxrM111ZFpsAb Y1PWVfigPuY0PsUQMmkDyx MfI7z6B6Ra6LIXl9JS18KW 93yMMbj7Q0 eMD9Q0GyNJDnvkaozutpfT D1GJCnFDGmaT09Ni5kjBoe Iw8gKFEvKND5YQOexGSpW2 XqrR4aZiVn KDVoBHZmW6NorHBwLXehH3 87UErlZrC3AHQegrFkU5Kn JPZzyDhpRdU2i6S2Bv7KGK JhCF47JHJ1 sJI0ZF17BH11R8AzZukpuL FibGU+PHRhYmxlIHdpZHRo NFolQOKnJjNxyFxiJN3oKd 9yZGVyLWNv nSymmBBwJhVoz1wzXQPgHK ngAK5txTtlH7OllJG7SPFb o9y1Vd00R07nI5NdlOV+PG VmrBT3pWO4 sT9oNgMpVzD4FHbxG882Vo BboDVnYzydu5ksb8ufiFu8 KhB2GYUvqjXleCxtKGE0w1 PoDc04L41r IHdpZHRoPSIxNSUiIHZhbG ovlx1muH1yHl9+PGNvbCB3 bHH5fV8eNfXlHxG2FNqsR6 49InRvcCIv Kzhhc9zem5pytSk1VhBuFT QhbjAwlFnrFGF6f5GnTz88 K4ProSyuh0EbSgb0od79uM Jwv6Y2qOO0 X7UqAMPmqtzxsMHczHrzFB 5bBIFcppolTZOgmZ7sFHRf C8c9MiPlFsK4LSgnM3Rojh V5YGIsrHNp DKxiMRH9K44gl8W0IRJwKF KpHKV9hSB0mS8fcIvzhxtx bGVmdDsgdmVydGljYWwtYW bqR140UCVc aAzfJNAypF6tIKRjeUGzdU llON3iLBBodtgkRmzSL0lD MjLjXFdREZaTCT67LT12eZ Pqc1O6jPE2 I9CpCOZrgdzgbpnhdDX7GM DbFZJilH94jTCuUVswMv1b b7I4r716CLAuASZcxC64Pl 9udDogMTBw iRRXxC0gkfpqz8jrwhhhYj WhSUYrSXw0YZd7TWTdpVzk HoBwMTK9DfH0JJX5yMZdjI 1hbGlnbjog pX3uKwo+MMAbTKxiEYt9YH wvdGQ+BYHaJJX8qMtfHHqv VSBlbX6dNCHzW8e2NrMlLi Y3FFphA0Ko YJFmsrezVq09eT8nIxXpQg K0GBzpQ9GhycY6AUZevIYv SAkgGVB0W89mg8F6EVJaIL GwWYT1hJK2 sR0bfTijyktjmUHzcBathx TqqAjiJGidVKuxQ116DMAr pPwhAiPpJQzkGEMnQX40CS 76vCXqi3G1 lAN6G6BaCEHzqftkhhdkgV Y0DRMhQUHmfE69cWWeTFap Vs7ly3J6m658NCJsQEUwnL 95Ym9ieLzb LFVisCSHzB6cqxwcl3dese yjGkSkFLBgQLn0JMn5ZPVm dGtnQnPqIGU6GgR2JXO8eG GldF0vvRoo yesgiA9wFhz+RmVtYWxlPC 66JL61lJFqt3C2gKI8N0Od KBQevoueuqogwQD9ALOsMD WgrI67pZKp SInxRg4ep2H1v737DOEaNN VnjS65Gh7oqMdnXJHetZEU qW4eaqqgg8fufbqzAsTyDS IrVMl6VEr7 CAGdlOjpTvCuAHP1JeQ7WR K2rWTtdZ3qmHzzpeubpZ3w Oyc+E3U6kJV0sMRmaAghkH Q+SJ34aa05 L1IbXzpbMuh4FJQoHWL8tL K0sR9kGXCrJQfmh6E9sCF4 U4PwjkLbyg6tq6vzIHXbZJ ldB59fyLZf h0C9REBqwLI3HRQewArtHa LsqV61Zdw+ITBorEhdj5Qi Jhewr0bhj3kvmIn1PaGmBT IgdmFsaWdu POA5k3RnYd90U86gAUckOJ XgITGtAYWrJSNcgCmiij6g sO8tDt3+HRHxmZU5pQU0zD 4hUyClXwH5 DNhyH677UcGccJKjSvyiq6 uxq2mqzWb0TtWsUGStmiLx tWpqQVR8u8AdFh34W1QldK fjs0HyJkr1 yu23kZVyi2P1aTD7N4JsYF GpmygllHDtzLmsMC4lPXUc rjtgATWijA3wPXJoD1q1It DlMeO0ZElh A2FlgqN2HRHsqSYvAKBhyW WSyO7lhaqov7gvpykdFqCd BMSaMQw5HKh2LIXbrDjyWt JiPVI3JmN1 ISN1yLOqzS2gcUrcijbynG 9wOyc+IYm5m4rlxKHuOX8k aAW2NX54PV43nDIvp1I8cR I0J9AoUICm rhuugkoseEA5KVYwPWNvtY 29Mv0mdFzrHy7wDWFrTGT1 HJZkxBXdG2JjkG0oKvGyVJ AsTGPqL3Wp iVQtDTilW712VDoyVlM6WY PvntWlS0KfVFNoyZbxIpD7 w2R6Pd1HRN85QX80SA57qO Hmm0Z3yIJ4 W0JhLRUvvhndgkwczXY9TA JuPLCryI33Ot5wsBceFe3u ADClECC3KEQugQHgW0UoqW 9yOiAjMDAw TPLtV4NycTVoQEtkL438BI ecVcA5TMRcjhDaA2TyHFLy wYqdNwE5i4Q4Mh7HGc72LZ 77SE65gWUd y6Q1jRC4O0NkTMYqogfype vtwRO3VCDvZVYkoV37Gs9d bXylWq0hORKaBZQ8ZYBqfV LcA5UyhM8k CaRpMWSmAYUsP7IdaRWuPF jiS192IZswZjR8EOVokuIw O0ZwWKCtaTvtIaL0g9J7Mi 2PDEajnjp2 F7OqXbqlvPZ+WS75VGTgCK 93dACmyBHti3cbaJn6GfJg AHWdKLF7wXtuZOdhs5RnNJ YrE14byPAi c2U6 (more content not included)... Normal [facility] Auto Diffon 04-29-2022 Basophils/100 WBC (Bld) 0.8 % Normal 0.0-2.0 [facility] Comment on above: Order Comment: Order Added by Discern Expert. Performed By: #### 2 550955, 8538147, 5893068, 5595091, 4419060, 66084496, 6453047 ####[facility] [address] [place] [address] Basophils/Leukocytes Auto (Bld) [Pure # fraction] 0.1 E9/L Normal 0.0-0.2 [facility] Comment on above: Order Comment: Order Added by Discern Expert. Performed By: #### 2 104874, 6407813, 8906221, 4626229, 5375373, 52846814, 2588067 ####[facility] [address] [place] [address] Eosinophils/100 WBC (Bld) 1.0 % Normal 0.0-8.0 [facility] Comment on above: Order Comment: Order Added by Discern Expert. Performed By: #### 2 036705, 0005378, 7338774, 7835809, 0194345, 08521998, 6226484 ####[facility] [address] [place] [address] Eosinophils/Leukocyte s Auto (Bld) [Pure # fraction] 0.1 E9/L Normal 0.0-0.5 [facility] Comment on above: Order Comment: Order Added by Discern Expert. Performed By: #### 2 557451, 3365931, 4243072, 8792460, 4896220, 44796126, 2986530 ####[address] [address] Lymphocytes/100 WBC (Bld) 35.4 % Normal 14.0-50.0 [facility] Comment on above: Order Comment: Order Added by Discern Expert. Performed By: #### 2 767747, 4644085, 5975554, 6256876, 7375224, 64887886, 7181438 ####[address] [address] Lymphocytes/Leukocyte s Auto (Bld) [Pure # fraction] 2.5 E9/L Normal 1.0-4.0 [facility] Comment on above: Order Comment: Order Added by Discern Expert. Performed By: #### 2 168926, 4558410, 5317918, 9308485, 3665995, 63994366, 3150471 ####[address] [place] [address] Monocytes/100 WBC (Bld) 5.0 % Normal 4.0-14.0 [facility] Comment on above: Order Comment: Order Added by Kailee Expert. Performed By: #### 2 516753, 8792802, 4161952, 5313138, 9156499, 67302288, 7489328 ####[address] [place] [address] Monocytes/Leukocytes Auto (Bld) [Pure # fraction] 0.4 E9/L Normal 0.2-1.0 [facility] Comment on above: Order Comment: Order Added by Discern Expert. Performed By: #### 2 842708, 8347689, 5401343, 1688864, 1679073, 32683044, 4963128 ####[facility] [address] [place] [address] Neutrophils/100 WBC (Bld) 57.8 % Normal 36.0-75.0 [facility] Comment on above: Order Comment: Order Added by Discern Expert. Performed By: #### 2 262333, 1622633, 7219360, 7569953, 5590029, 25044218, 9317806 ####[facility] [address] [place] [address] Neutrophils/Leukocyte s Auto (Bld) [Pure # fraction] 4.1 E9/L Normal 2.0-7.5 [facility] Comment on above: Order Comment: Order Added by Discern Expert. Performed By: #### 2 328573, 9962833, 1641421, 8009834, 1170250, 42693022, 0680495 ####[facility] [address] [place] [address] BUNon 04-29-2022 Urea nitrogen [Mass/Vol] 11 mg/dL Normal 5-21 [facility] Comment on above: Performed By: #### 2 004770, 63237685, 3744053, 1463635 #### [facility] [address] [place] [address] CBC w/ Auto Diffon Erythrocyte distribution width (RBC) [Ratio] 14.0 % Normal 10.9-14.2 [facility] Comment on above: Performed By: #### 2 489891, 3778008, 0784327, 3823427, 3142212, 56682936, 0129438 ####[facility] [address] [place] [address] Hematocrit (Bld) [Volume fraction] 41.9 % Normal 34.0-46.0 [facility] Comment on above: Performed By: #### 2 622010, 7859834, 8305386, 1283923, 8284562, 87849384, 2284926 ####[facility] [address] [place] [address] Hemoglobin (Bld) [Mass/Vol] 13.8 g/dL Normal 12.0-16.0 [facility] Comment on above: Performed By: #### 2 790464, 9580124, 7350028, 9674081, 6934680, 02807170, 4569850 ####[facility] [address] [place] [address] MCH (RBC) [Entitic mass] 28.3 pg Normal 27.0-34.0 [facility] Comment on above: Performed By: #### 2 857007, 1327013, 6069290, 3769367, 0387823, 54222682, 1394672 ####[address] [address] MCHC (RBC) [Mass/Vol] 32.8 g/dL Normal 31.4-36.0 [facility] Comment on above: Performed By: #### 2 148883, 0486899, 7506240, 3030056, 5582716, 44072159, 2340393 ####[address] [address] MCV (RBC) [Entitic vol] 86.1 fL Normal 80.0-100.0 [facility] Comment on above: Performed By: #### 2 658366, 8235034, 2199878, 7039375, 1455954, 33030948, 4750913 ####[address] [address] Platelet mean volume (Bld) [Entitic vol] 9.0 fL Normal 6.4-10.8 [facility] Comment on above: Performed By: #### 2 730607, 0128388, 9632571, 8109599, 3607730, 29668298, 4221153 ####[facility] [address] [place] [address] Platelets (Bld) [#/Vol] 252.0 E9/L Normal 150.0-500.0 [facility] Comment on above: Performed By: #### 2 896942, 0421062, 1415853, 1973108, 7586856, 89993711, 7888650 ####[facility] [address] [place] [address] RBC (Bld) [#/Vol] 4.9 E12/L Normal 4.3-5.9 [facility] Comment on above: Performed By: #### 2 142645, 5280861, 1457712, 6820316, 0773608, 75977424, 7218220 ####[facility] [address] [place] [address] WBC corrected for nucl RBC Auto (Bld) [#/Vol] 7.1 E9/L Normal 4.0-11.0 [facility] Comment on above: Performed By: #### 2 000837, 2306170, 8507593, 7042947, 2379952, 15417753, 7514050 ####[facility] [address] [place] [address] CHEMISTRYOrdered By: SYSTEM SYSTEM on 04-29-2022 Anion gap [Moles/Vol] 9 mmol/L Normal 6 - 16 mEq/L [facility] Remisol Calcium [Mass/Vol] 9.1 mg/dL Normal 8.9 - 11. 1 mg/dL [facility] Remisol Chloride [Moles/Vol] 106 mmol/L Normal 101 - 1 11 mmol/L [facility] Remisol CO2 [Moles/Vol] 25 mmol/L Normal 21 - 31 mmol/L [facility] Remisol Creatinine [Mass/Vol] 1.0 mg/dL Normal 0.5 - 1.3 mg/dL [facility] Remisol GFR/1.73 sq M.predicted among blacks MDRD (S/P/Bld) [Vol rate/Area] mL/min/1.73 m2 Normal >=59mL/min/1 .73 m2 [facility] [place] Chem S GFR/1.73 sq M.predicted among non-blacks MDRD (S/P/Bld) [Vol rate/Area] mL/min/1.73 m2 Normal >=59mL/min/1 .73 m2 [facility] [place] Chem S Magnesium [Mass/Vol] 1.7 mg/dL Normal 1.3 - 2 .4 mg/dL [facility] Remisol Phosphate [Mass/Vol] 3.2 mg/dL Normal 1.9 - 4 .6 mg/dL FT Remisol Potassium [Moles/Vol] 3.8 mmol/L Normal 3.5 - 5.3 mmol/L [facility] Remisol Sodium [Moles/Vol] 136 mmol/L Normal 135 - 145 mmol/L [facility]isol TSH Qn 0.89 m[IU]/L Normal 0.34 - 5.60 mcIU/mL [facility] Urea nitrogen [Mass/Vol] 11 mg/dL Normal 5 - 21 mg/dL [facility] COAGULATIONOrdered By: Janina Staples on 04-29-2022 aPTT Coag (PPP) [Time] 34.2 s Normal 25.1 - 36.5 second(s) [facility] Auto Coag INR Coag (PPP) [Relative time] 1.0 {INR} Invalid Interpretation Code [facility] Auto Coag PT Coag (PPP) [Time] 11.6 s Normal 9.4 - 1 2.5 second(s) [facility] Auto Coag Calciumon 04-29-2022 Calcium [Mass/Vol] 9.1 mg/dL Normal 8.9-11.1 [facility] Comment on above: Performed By: #### 2 [id number], [id number], [id number], [id number], [id number], [id number], [id number] ####[facility] [id number] [place] [address] Consent for Treatmenton 04-04 Consent for Treatment [id number]#1.0 0CD:127 Normal [facility] Creatinineon 04-29-2022 Creatinine [Mass/Vol] 1.0 mg/dL Normal 0.5-1.3 [facility] Comment on above: Performed By: #### 2 [id number], [id number], [id number], [id number] ####[facility] [address] [place] [address] HEMATOLOGYOrdered By: SYSTEM SYSTEM on 04-29-2022 Basophils/100 WBC (Bld) 0.8 % Normal 0.0 - 2.0 % [facility] HemeAutoSS Basophils/Leukocytes Auto (Bld) [Pure # fraction] 0.1 E9/L Normal 0.0 - 0.2 E9/L [facility]Auto[facility] Eosinophils/100 WBC (Bld) 1.0 % Normal 0.0 - 8.0 % [facility]eAutoSS Eosinophils/Leukocyte s Auto (Bld) [Pure # fraction] 0.1 E9/L Normal 0.0 - 0.5 E9/L [facility]eAuto[facility] Lymphocytes/100 WBC (Bld) 35.4 % Normal 14.0 - 50.0 % [facility]eAutoSS Lymphocytes/Leukocyte s Auto (Bld) [Pure # fraction] 2.5 E9/L Normal 1.0 - 4.0 E9/L [facility]eAuto[facility] Monocytes/100 WBC (Bld) 5.0 % Normal 4.0 - 14.0 % [facility]eAutoSS Monocytes/Leukocytes Auto (Bld) [Pure # fraction] 0.4 E9/L Normal 0.2 - 1.0 E9/L [facility] Neutrophils/100 WBC (Bld) 57.8 % Normal 36.0 - 75.0 % [facility]eAutoSS Neutrophils/Leukocyte s Auto (Bld) [Pure # fraction] 4.1 E9/L Normal 2.0 - 7.5 E9/L [facility] HEMATOLOGYOrdered By: Jarrett Rodriguez on 04-29-2022 Erythrocyte distribution width (RBC) [Ratio] 14.0 % Normal 10.9 - 14.2 % [facility] Hematocrit (Bld) [Volume fraction] 41.9 % Normal 34.0 - 46.0 % [facility] Hemoglobin (Bld) [Mass/Vol] 13.8 g/dL Normal 12.0 - 16.0 gm/dL [facility] MCH (RBC) [Entitic mass] 28.3 pg Normal 27.0 - 34.0 pg [facility]Auto[facility] MCHC (RBC) [Mass/Vol] 32.8 g/dL Normal 31.4 - 36.0 gm/dL [facility] HemeAutoSS MCV (RBC) [Entitic vol] 86.1 fL Normal 80.0 - 100.0 fL [facility] HemeAutoSS Platelet mean volume (Bld) [Entitic vol] 9.0 fL Normal 6.4 - 10.8 fL [facility] HemeAutoSS Platelets (Bld) [#/Vol] 252.0 E9/L Normal 150.0 - 500.0 E9/L [facility]eAuto[facility] RBC (Bld) [#/Vol] 4.9 E12/L Normal 4.3 - 5.9 E12/L [facility] [place] HemeAutoSS WBC corrected for nucl RBC Auto (Bld) [#/Vol] 7.1 E9/L Normal 4.0 - 11.0 E9/L [facility] [place] HemeAuto[facility] Lyteson 04-29-2022 Anion gap [Moles/Vol] 9 mmol/L Normal 6-16 [facility] Comment on above: Performed By: #### 2 [id number], [id number], [id number], [id number] ####[facility] [id number] [place] [address] Chloride [Moles/Vol] 106 mmol/L Normal 101-111 [facility] Comment on above: Performed By: #### 2 245044, [id number], 3615656, [id number] ####[facility] [address] [place] [address] CO2 [Moles/Vol] 25 mmol/L Normal 21-31 [facility] Comment on above: Performed By: #### 2 [id number], [id number], 5732126, [id number] ####[facility] [address] [place] [address] Potassium [Moles/Vol] 3.8 mmol/L Normal 3.5-5.3 [facility] Comment on above: Performed By: #### 2 724574, [id number], 8503199, 6573860 ####[facility] [address] [place] [address] Sodium [Moles/Vol] 136 mmol/L Normal 135-145 [facility] Comment on above: Performed By: #### 2 024984, [id number], 6149174, 1153143 ####[facility] [address] [place] [address] Magnesiumon 04-29-2022 Magnesium [Mass/Vol] 1.7 mg/dL Normal 1.3-2.4 [facility] Comment on above: Performed By: #### 2 241501, [id number], 6494014, 0079946, 2038576, [id number], 0227278 ####[facility] [address] [place] [address] PT & PTTon 04-29-2022 aPTT Coag (PPP) [Time] 34.2 second(s) Normal 25.1-36.5 [facility] Comment on above: Result Comment: Para meter 15 days - 4 weeks 1 - 5 months 6 - 11 months 1 - 5 years 6 - 10 years 11 - 17 years PTT Mean: 35.4 (27.6-45.6) Mean: 33.5 (24.8-40.7) Mean: 32.4 (25.1-40.7) Mean: 31.6 (24.0-39.2) Mean: 31.6 (26.9-38.7) Mean: 31.0 (24.6-38.4) Pediatric Reference ranges were obtained from a study by Arjun Gallegos et al. prepared from 1437 samples obtained at 7 different centers using the same coagulation reagent and instrumentation as [facility] [place]. Currently there are no coagulation studies available worldwide for children to 14 days, and no normal ranges. Heparin therapeutic range (represented by Anti-Factor Xa activity of 0.2 - 0.4 U/mL) corresponds to PTT of 56.6 - 109.0 sec. Performed By: #### 2 [id number], 1412393, 7549345, 1873662, 0856726, 89832262, 1828341 ####[facility] [address] [place] [address] INR Coag (PPP) [Relative time] 1.0 {INR} Invalid Interpretation Code [facility] Comment on above: Result Comment: INR results are specifically intended to assess patients stabilized on long-term Anticoagulation therapy suggested INR?s ?Less Intensive Anticoagulation? 2.0 ? 3.0 Conventional Range 3.0 ? 4.5 Performed By: #### 2 634747, 6935736, 6800931, 9373076, 7417449, 53524266, 6297652 ####[facility] [address] [place] [address] PT Coag (PPP) [Time] 11.6 second(s) Normal 9.4-12.5 [facility] Comment on above: Result Comment: 15 d ays - 4 weeks 1 - 5 months 6 -11 months 1 ? 5 years 6 ? 10 years 11 -17 years Mean: 11.2 (9.5 ? 12.6) Mean: 11.0 (9.7 ? 12.8) Mean: 11.0 (9.8 ? 13.0) Mean: 11.3 (9.9 ? 13.4) Mean: 11.7 (10.0 ? 14.6) Mean: 11.8 (10.0 - 14.1) Pediatric Reference ranges were obtained from a study by Arjun Gallegos et al. prepared from 1437 samples obtained at 7 different centers using the same coagulation reagent and instrumentation as [facility] [place]. Currently there are no coagulation studies available worldwide for children to 14 days, and no normal ranges. Performed By: #### 2 [id number] ####[facility] [id number] [place] [address] Phosphoruson 04-29-2022 Phosphate [Mass/Vol] 3.2 mg/dL Normal 1.9-4.6 [facility] Comment on above: Performed By: #### 2 [id number] ####[facility] [id number] [place] [address] TSHon 04-29-2022 TSH Qn 0.89 m[IU]/L Normal 0.34-5.60 [facility] Comment on above: Performed By: #### 2 [id number] ####[facility] [address] [place] [address] eGFRon 04-29-2022 GFR/1.73 sq M.predicted among blacks MDRD (S/P/Bld) [Vol rate/Area] mL/min/{1.73_m2} Normal >=59 [facility] Comment on above: Order Comment: Order added by Discern Expert. Result Comment: eGFR is race adjusted. AA=. Performed By: #### 2 [id number], [id number], [id number] ####[id number] [place] [address] GFR/1.73 sq M.predicted among non-blacks MDRD (S/P/Bld) [Vol rate/Area] mL/min/{1.73_m2} Normal >=59 [facility] Comment on above: Order Comment: Order added by Discern Expert. Result Comment: Hand Salter maggie kidney disease could be indicated at eGFR's of less than 60 mL/min/1.73m2. Kidney failure is indicated at less than 15 mL/min/1.73m2. Performed By: #### 2 [id number], [id number] ####[id number] [place] [address] Consent for Procedure/Surger yon 04-17-2022 Consent for Procedure/Surgery [id number]. 00CD:127 Normal [facility] Physician Orderon 04-16-2022 Physician Order [id number]#1. 00CD:127 Normal [facility] Physical Rehabilitation Offi ce/Clinic Noon 01-01-2018 Physical Rehabilitation Office/Clinic No EMG/NCS of the LUE completed today. Please see report. Electronically signed by Ginny Arango MD 01/01/18 13:25 EDT Normal [facility] Vital Signs Date Time Vital Sign Value Performing Clinician Facility 06-24-2023 11:00-0500 Body height 170.18 cm Alejandra Huertastremaine Other [facility] Other 06-24-2023 11:00-0500 Body mass index (BMI) [Ratio] 32.32 kg/m2 Alejandra Huertass Other [facility] Other 06-24-2023 11:00-0500 Body temperature 96.2 [degF] Azsilvia Huertass Other [facility] Other 06-24-2023 11:00-0500 Body weight 93.62 kg Alejandra Huertass Other [facility] Other 06-24-2023 11:00-0500 Diastolic blood pressure 95 mm[Hg] Aziz Aleksandars Other [facility] Other 06-24-2023 11:00-0500 Respiratory rate 16 /min Alejandra Huertass Other [facility] Other 06-24-2023 11:00-0500 Systolic blood pressure 140 mm[Hg] Aziz Bakhous Other [facility] Other 12-25-2022 11:18-0400 Body temperature 97.59 [degF] TERRY Phelan MD Work Phone: [facility] 12-25-2022 11:18-0400 Body weight 94.35 kg TERRY Phelan MD Work Phone: [facility] 12-25-2022 11:18-0400 Diastolic blood pressure 108 mm[Hg] TERRY Phelan MD Work Phone: [facility] 12-25-2022 11:18-0400 Heart rate 60 /min TERRY Phelan MD Work Phone: [facility] 12-25-2022 11:18-0400 Respiratory rate 18 /min TERRY Phelan MD Work Phone: [facility] 12-25-2022 11:18-0400 SaO2% (BldA) [Mass fraction] 96 % TERRY Phelan MD Work Phone: [facility] 12-25-2022 11:18-0400 Systolic blood pressure 153 mm[Hg] TERRY Phelan MD Work Phone: [facility] 08-06-2022 09:50-0500 Body temperature 97 [degF] [facility] Work Phone: [facility] 08-06-2022 09:50-0500 Body weight 91.63 kg [facility] Work Phone: [facility] 08-06-2022 09:50-0500 Diastolic blood pressure 93 mm[Hg] [facility] Work Phone: [facility] 08-06-2022 09:50-0500 Heart rate 79 /min [facility] Work Phone: [facility] 08-06-2022 09:50-0500 Respiratory rate 16 /min [facility] Work Phone: [facility] 08-06-2022 09:50-0500 SaO2% (BldA) [Mass fraction] 98 % [facility] Work Phone: [facility] 08-06-2022 09:50-0500 Systolic blood pressure 154 mm[Hg] [facility] Work Phone: [facility] 08-05-2022 09:59-0500 Body temperature 97.2 [degF] [facility] Work Phone: [facility] 08-05-2022 09:59-0500 Body weight 91.63 kg [facility] Work Phone: [facility] 08-05-2022 09:59-0500 Diastolic blood pressure 91 mm[Hg] [facility] Work Phone: [facility] 08-05-2022 09:59-0500 Heart rate 71 /min [facility] Work Phone: [facility] 08-05-2022 09:59-0500 Respiratory rate 16 /min [facility] Work Phone: [facility] 08-05-2022 09:59-0500 SaO2% (BldA) [Mass fraction] 99 % [facility] Work Phone: [facility] 08-05-2022 09:59-0500 Systolic blood pressure 130 mm[Hg] [facility] Work Phone: [facility] 05-09-2022 08:45-0400 Hourly Rounding Elena Timmis [facility] 05-09-2022 08:45-0400 Promise to Return Elena Timmis [facility] 05-09-2022 07:30-0400 Hourly Rounding Elena Timmis [facility] 05-09-2022 07:30-0400 Promise to Return Elena Timmis [facility] 05-09-2022 07:00-0400 Body temperature 98.42 [degF] Elena Timmis [facility] 05-09-2022 07:00-0400 Diastolic blood pressure 94 mm[Hg] Elena Timmis [facility] 05-09-2022 07:00-0400 Heart rate 96 /min Elena Timmis [facility] 05-09-2022 07:00-0400 Respiratory rate 18 /min Elena Timmis [facility] 05-09-2022 07:00-0400 SaO2% (BldA) [Mass fraction] 94 % Elena Timmis [facility] 05-09-2022 07:00-0400 Systolic blood pressure 132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 PROVIDER: Dr. Rey Primary Site: Thyroid Date of Diagnosis: May 08, 2022 Clinical Stage: T2 N0 M0 Pathologic Stage: T2 Nx M0 DIAGNOSIS: Thyroid cancer, papillary carcinoma follicular variant, stage I [id number]. Status post thyroidectomy on 05/08/2022. Status post I-131 ablative therapy, 50.7 mCi on 08/07/2022 HPI: Main complaint fatigue. She states she has been compliant with her thyroid medicine. Denies neck pain or dysphagia. RADIOLOGY: Whole-body scan 08/14/2022: Uptake within the thyroid bed. No worrisome uptake in the cervical area or elsewhere. LABORATORY: Latest Reference Range AND Units 07/08/22 12:04 08/07/22 10:51 12/04/22 11:00 01/29/23 10:47 T4 5.5 - 10.2 ug/dL 2.5 (L) 2.7 (L) TSH 0.270 - 4.200 mIU/L 74.400 (H) 68.100 (H) Thyroglobulin 1.6 - 59.9 ng/mL 7.2 20.1 Thyroglobulin Ab, Serum <4.0 IU/mL <0.9 (C) <0.9 <0.9 Thyroglobulin, Serum 1.6 - 50.0 ng/mL 5.1 11.9 <0.1 (L) (L): Data is abnormally low (H): Data is abnormally high (C): Corrected FOCUSED ROS: Dysphagia: Yes better after surgery Mucositis: No Voice Changes:No Fatigue: No Nausea: No Vomitting: No Pain: No Taste: No Weight loss: No ALLERGIES Allergen Reactions Penicillins Rash, Swelling, Shortness of Breath MEDICATIONS: levothyroxine (SYNTHROID) 200 mcg tablet Take 1 tablet by mouth once daily. amLODIPine (NORVASC) 5 mg tablet Take 5 mg by mouth. albuterol HFA (PROVENTIL HFA, VENTOLIN HFA) 90 mcg/actuation inhaler Inhale 1 Puff as instructed. lisinopril (ZESTRIL, PRINIVIL) 5 mg tablet Take 5 mg by mouth once daily. PAST MEDICAL HISTORY Diagnosis Date Asthma HTN (hypertension) Prior radiation therapy, collagen vascular disease, or inflammatory bowel disease: No status: Patient states there is no possibility she is at this time. Educated on risks of during treatment. PAST SURGICAL HISTORY Procedure Laterality Date BX OF BREAST; INCISIONAL Left 1995, 2021 CHOLECYSTECTOMY HYSTERECTOMY PAST SURGICAL HISTORY OF Left ganglion cyst removal-left wrist THYROIDECTOMY FAMILY HISTORY Problem Relation Age of Onset Lung Cancer Mother Liver Cancer Father Breast Cancer Sister 43 Social History Tobacco Use Smoking status: Never Smokeless tobacco: Never Substance Use Topics Alcohol use: Not Currently Drug use: Not Currently Smoking: No Heavy Alcohol Consumption: No COMPLETE REVIEW OF SYSTEMS: GENERAL: feeling well without fatigue, no recent change in weight NECK: denies swelling or pain in neck RESPIRATORY: no cough, no wheezing or shortness of breath CARDIOVASCULAR: no chest pain, no palpitations GI: normal appetite, tolerating PO well, BMs normal, and no abdominal pain NEURO: no numbness or paresthesias and no weakness of the extremities As noted in HPI PHYSICAL EXAM: VS: There were no vitals taken for this visit. KPS: 100 General Appearance: Alert and oriented. No acute distress. Neck: Normal ROM. No palpable cervical or supraclavicular adenopathy. Well-healing low neck incision. No masses or nodularity notable Lymphatics: No palpable lymphadenopathy. Hematologic: No signs of active bleeding. ASSESSMENT/PLAN: Thyroid cancer, papillary carcinoma follicular variant, stage I [id number]. Status post thyroidectomy on 05/08/2022. Thyroglobulin undetectable. However still needs increased thyroid replacement dose. Recommend to 50 mcg up from 200, recheck labs in 6 weeks. Signed by: Navya Phelan MD cc: Nevin Jane [address] [place] [address] Elena Rey MD [address] [place] [id number]23 NoteHNO ID: [id number] Author: Navya Phelan MD Service: ? Author Type: Physician Type: Progress Notes Filed: 12/30/2022 2:55 PM Note Text: Radiation Oncology -follow up note PATIENT NAME: Jerardo Zeng PATIENT : 1980 REQUESTING PROVIDER: Dr. Rey Primary Site: Thyroid Date of Diagnosis: May 08, 2022 Clinical Stage: T2 N0 M0 Pathologic Stage: T2 Nx M0 DIAGNOSIS: Thyroid cancer, papillary carcinoma follicular variant, stage I [id number]. Status post thyroidectomy on 05/08/2022. Status post I-131 ablative therapy, 50.7 mCi on 08/07/2022 HPI: Patient states she is feeling better after recent dose adjustment however still with excessive fatigue. Denies chest pain. Appetite stable. Is more functional. RADIOLOGY: Whole-body scan 08/14/2022: Uptake within the thyroid bed. No worrisome uptake in the cervical area or elsewhere. LABORATORY: Latest Reference Range AND Units Most Recent 07/08/22 12:04 08/07/22 10:51 12/04/22 11:00 Thyroglobulin 1.6 - 59.9 ng/mL 20.1 08/07/22 10:51 7.2 20.1 TG Antibody Screen <14.4 IU/mL 1.2 08/07/22 10:51 1.2 1.2 Thyroglobulin Ab, Serum <4.0 IU/mL <0.9 08/07/22 10:51 <0.9 (C) <0.9 Thyroglobulin, Serum 1.6 - 50.0 ng/mL 11.9 08/07/22 10:51 5.1 11.9 T4 5.5 - 10.2 ug/dL 2.5 (L) 12/04/22 11:00 2.5 (L) TSH 0.270 - 4.200 mIU/L 74.400 (H) 12/04/22 11:00 74.400 (H) (L): Data is abnormally low (H): Data is abnormally high (C): Corrected Latest Reference Range AND Units 07/08/22 12:04 08/07/22 10:51 Thyroglobulin 1.6 - 59.9 ng/mL 7.2 20.1 TG Antibody Screen <14.4 IU/mL 1.2 1.2 Thyroglobulin Ab, Serum <4.0 IU/mL <0.9 (C) <0.9 Thyroglobulin, Serum 1.6 - 50.0 ng/mL 5.1 11.9 (C): Corrected FOCUSED ROS: Dysphagia: Yes better after surgery Mucositis: No Voice Changes:No Fatigue: No Nausea: No Vomitting: No Pain: No Taste: No Weight loss: No ALLERGIES Allergen Reactions Penicillins Rash, Swelling, Shortness of Breath MEDICATIONS: levothyroxine (SYNTHROID) 150 mcg tablet Take 1 tablet by mouth once daily. amLODIPine (NORVASC) 5 mg tablet Take 5 mg by mouth. albuterol HFA (PROVENTIL HFA, VENTOLIN HFA) 90 mcg/actuation inhaler Inhale 1 Puff as instructed. lisinopril (ZESTRIL, PRINIVIL) 5 mg tablet Take 5 mg by mouth once daily. PAST MEDICAL HISTORY Diagnosis Date Asthma HTN (hypertension) Prior radiation therapy, collagen vascular disease, or inflammatory bowel disease: No status: Patient states there is no possibility she is at this time. Educated on risks of during treatment. PAST SURGICAL HISTORY Procedure Laterality Date BX OF BREAST; INCISIONAL Left 1995, 2021 CHOLECYSTECTOMY HYSTERECTOMY PAST SURGICAL HISTORY OF Left ganglion cyst removal-left wrist THYROIDECTOMY FAMILY HISTORY Problem Relation Age of Onset Lung Cancer Mother Liver Cancer Father Breast Cancer Sister 43 Social History Tobacco Use Smoking status: Never Smokeless tobacco: Never Substance Use Topics Alcohol use: Not Currently Drug use: Not Currently Smoking: No Heavy Alcohol Consumption: No COMPLETE REVIEW OF SYSTEMS: GENERAL: feeling well without fatigue, no recent change in weight NECK: denies swelling or pain in neck RESPIRATORY: no cough, no wheezing or shortness of breath CARDIOVASCULAR: no chest pain, no palpitations GI: normal appetite, tolerating PO well, BMs normal, and no abdominal pain NEURO: no numbness or paresthesias and no weakness of the extremities As noted in HPI PHYSICAL EXAM: VS: BP 153/108 Pulse 60 Temp 36.4 ?C (97.6 ?F) Resp 18 Wt 94.3 kg (208 lb) SpO2 96% BMI (P) 33.57 kg/m? KPS: 100 General Appearance: Alert and oriented. No acute distress. Neck: Normal ROM. No palpable cervical or supraclavicular adenopathy. Well-healing low neck incision. No masses or nodularity notable Lymphatics: No palpable lymphadenopathy. Hematologic: No signs of active bleeding. ASSESSMENT/PLAN: Thyroid cancer, papillary carcinoma follicular variant, stage I [id number]. Status post thyroidectomy on 05/08/2022. Doing well after I-131 ablative treatment. She still underdosed with her Synthroid. Recommend increasing her dose to 200 mcg daily and rechecking labs in 4 to 6 weeks. Signed by: Navya Phelan MD cc: Nevin Lara [address] [place] [address] Elena Rey MD [address] [place] [id number] [facility]05-[facility] History of Present illness Narrative* Navya Phelan MD - 12/25/2022 11:54 AM EDT Radiation Oncology -follow up note PATIENT NAME: Jerardo Zeng PATIENT : 1980 REQUESTING PROVIDER: Dr. Rey Primary Site: Thyroid Date of Diagnosis: May 08, 2022 Clinical Stage: T2 N0 M0 Pathologic Stage: T2 Nx M0 DIAGNOSIS: Thyroid cancer, papillary carcinoma follicular variant, stage I [id number]. Status post thyroidectomy on 05/08/2022. Status post I-131 ablative therapy, 50.7 mCi on 08/07/2022 HPI: Patient states she is feeling better after recent dose adjustment however still with excessivefatigue. Denies chest pain. Appetite stable. Is more functional. RADIOLOGY: Whole-body scan 08/14/2022: Uptake within the thyroid bed. No worrisome uptake in the cervical area or elsewhere. LABORATORY: Latest Reference Range & Units Most Recent 07/08/22 12:04 08/07/22 10:51 12/04/22 11:00 Thyroglobulin 1.6 - 59.9 ng/mL 20.1 08/07/22 10:51 7.2 20.1 TG Antibody Screen <14.4 IU/mL 1.2 08/07/22 10:51 1.2 1.2 Thyroglobulin Ab, Serum <4.0 IU/mL <0.9 08/07/22 10:51 <0.9 (C) <0.9 Thyroglobulin, Serum 1.6 - 50.0 ng/mL 11.9 08/07/22 10:51 5.1 11.9 T4 5.5 - 10.2 ug/dL 2.5 (L) 12/04/22 11:00 2.5 (L) TSH 0.270 - 4.200 mIU/L 74.400 (H) 12/04/22 11:00 74.400 (H) (L): Data is abnormally low (H): Data is abnormally high (C): Corrected Latest Reference Range & Units 07/08/22 12:04 08/07/22 10:51 Thyroglobulin 1.6 - 59.9 ng/mL 7.2 20.1 TG Antibody Screen <14.4 IU/mL 1.2 1.2 Thyroglobulin Ab, Serum <4.0 IU/mL <0.9 (C) <0.9 Thyroglobulin, Serum 1.6 - 50.0 ng/mL 5.1 11.9 (C): Corrected FOCUSED ROS: Dysphagia: Yes better after surgery Mucositis: No Voice Changes:No Fatigue: No Nausea: No Vomitting: No Pain: No Taste: No Weight loss: No ALLERGIES Allergen Reactions Penicillins Rash, Swelling, Shortness of Breath MEDICATIONS: levothyroxine (SYNTHROID) 150 mcg tablet Take 1 tablet by mouth once daily. amLODIPine (NORVASC) 5 mg tablet Take 5 mg by mouth. albuterol HFA (PROVENTIL HFA, VENTOLIN HFA) 90 mcg/actuation inhaler Inhale 1 Puff as instructed. lisinopril (ZESTRIL, PRINIVIL) 5 mg tablet Take 5 mg by mouth once daily. PAST MEDICAL HISTORY Diagnosis Date Asthma HTN (hypertension) Prior radiation therapy, collagen vascular disease, or inflammatory bowel disease: No status: Patient states there is no possibility she is at this time. Educated on risks of during treatment. PAST SURGICAL HISTORY Procedure Laterality Date BX OF BREAST; INCISIONAL Left 2021 CHOLECYSTECTOMY HYSTERECTOMY PAST SURGICAL HISTORY OF Left ganglion cyst removal-left wrist THYROIDECTOMY FAMILY HISTORY Problem Relation Age of Onset Lung Cancer Mother Liver Cancer Father Breast Cancer Sister 43 Social History Tobacco Use Smoking status: Never Smokeless tobacco: Never Substance Use Topics Alcohol use: Not Currently Drug use: Not Currently Smoking: No Heavy Alcohol Consumption: No COMPLETE REVIEW OF SYSTEMS: GENERAL: feeling well without fatigue, no recent change in weight NECK: denies swelling or pain in neck RESPIRATORY: no cough, no wheezing or shortness of breath CARDIOVASCULAR: no chest pain, no palpitations GI: normal appetite, tolerating PO well, BMs normal, and no abdominal pain NEURO: no numbness or paresthesias and no weakness of the extremities As noted in HPI PHYSICAL EXAM: VS: BP 153/108 Pulse 60 Temp 36.4 C (97.6 F) Resp 18 Wt 94.3 kg (208 lb) SpO2 96% BMI (P) 33.57 kg/m KPS: 100 General Appearance: Alert and oriented. No acute distress. Neck: Normal ROM. No palpable cervical or supraclavicular adenopathy. Well- healing low neck incision. No masses or nodularity notable Lymphatics: No palpable lymphadenopathy. Hematologic: No signs of active bleeding. ASSESSMENT/PLAN: Thyroid cancer, papillary carcinoma follicular variant, stage I [id number]. Status post thyroidectomy on 05/08/2022. Doing well after I-131 ablative treatment. She still underdosed with her Synthroid. Recommend increasing her dose to 200 mcg daily and rechecking labs in 4 to 6 weeks. Signed by: Navya Phelan MD cc: Nevin Lara [address] [place] [id number] Elena Rey MD [address] [place] [id number] documented in [facility] encounter[facility]01-05-2023 History of Present illness Narrative* Navya Phelan MD - 08/07/2022 2:13 PM EST Note at [facility] [place] documented in this encounter[facility] Health01-04-2023 Miscellaneous Notes* Telephone Encounter - Denise Vang LPN - 08/06/2022 10:15 AM EST Jerardo is here for day 2 Thyrogen injection with c/o nausea. She states nausea started yesterday a.m. and has been taking compazine 10mg 1 tablet every 8 hours. I discussed the above with Dr. Phelan and he will add Zofran. Patient notified and in agreement. Zofran prescription pending your approval. Denise Vang LPN documented in this encounterPark[facility]12-06-2022 History of Present illness Narrative* Navya Phelan MD - 07/08/2022 11:15 AM EST Radiation Oncology - New Patient/Consult Note PATIENT NAME: Jerardo Zeng PATIENT : 1980 REQUESTING PROVIDER: Dr. Rey Primary Site: Thyroid Date of Diagnosis: May 08, 2022 Clinical Stage: T2 N0 M0 Pathologic Stage: T2 Nx M0 DIAGNOSIS: 41 year old female with thyroid cancer, papillary carcinoma follicular variant, stage I [id number]. Status post thyroidectomy on 05/08/2022. HPI: 41 year old female who presents with above diagnosis, for an opinion regarding the role of radiation therapy in the management of the patient's disease. Final recommendations will be communicated back to the requesting physician by way of the shared medical record, or letter to requesting physician via US mail. Patient presented with enlarging thyroid nodules left greater than right. Patient was symptomatic with neck discomfort, dysphagia, and occasional sensation of dyspnea. She underwent ultrasound demonstrating multi nodule findings bilaterally. Given this thyroidectomy was recommended. Patient underwent total thyroidectomy on 05/08/2022. Pathology demonstrated: Left thyroid, noninvasive follicular neoplasm, 0.2 cm Right thyroid, papillary thyroid carcinoma follicular variant with minimal invasion 2.2, and 0.6 cm. Margins negative. Well differentiated. Focal minimal invasion of the capsule. No LVI no PNI, pT2pNx Patient has done well after surgery without significant problems or issues. FOCUSED ROS: Dysphagia: Yes better after surgery Mucositis: No Voice Changes:No Fatigue: No Nausea: No Vomitting: No Pain: No Taste: No Weight loss: No ALLERGIES Allergen Reactions Penicillins Rash, Swelling, Shortness of Breath MEDICATIONS: amLODIPine (NORVASC) 5 mg tablet Take 5 mg by mouth. albuterol HFA (PROVENTIL HFA, VENTOLIN HFA) 90 mcg/actuation inhaler Inhale 1 Puff as instructed. liothyronine (CYTOMEL) 25 mcg tablet Take 25 mcg by mouth. lisinopril (ZESTRIL, PRINIVIL) 5 mg tablet Take 5 mg by mouth once daily. prochlorperazine (COMPAZINE) 10 mg tablet Take 1 tablet by mouth every 8 hours as needed. pilocarpine (SALAGEN, PILOCARPINE,) 5 mg tablet Take 1 tablet by mouth three times daily. levothyroxine (SYNTHROID) 125 mcg tablet Take 1 tablet by mouth once daily. PAST MEDICAL HISTORY Diagnosis Date Asthma HTN (hypertension) Prior radiation therapy, collagen vascular disease, or inflammatory bowel disease: No status: Patient states there is no possibility she is at this time. Educated on risks of during treatment. PAST SURGICAL HISTORY Procedure Laterality Date BX OF BREAST; INCISIONAL Left 1995, 2021 CHOLECYSTECTOMY HYSTERECTOMY PAST SURGICAL HISTORY OF Left ganglion cyst removal-left wrist THYROIDECTOMY FAMILY HISTORY Problem Relation Age of Onset Lung Cancer Mother Liver Cancer Father Breast Cancer Sister 43 Social History Tobacco Use Smoking status: Never Smokeless tobacco: Never Substance Use Topics Alcohol use: Not Currently Drug use: Not Currently Smoking: No Heavy Alcohol Consumption: No COMPLETE REVIEW OF SYSTEMS: GENERAL: feeling well without fatigue, no recent change in weight NECK: denies swelling or pain in neck RESPIRATORY: no cough, no wheezing or shortness of breath CARDIOVASCULAR: no chest pain, no palpitations GI: normal appetite, tolerating PO well, BMs normal, and no abdominal pain NEURO: no numbness or paresthesias and no weakness of the extremities As noted in HPI PHYSICAL EXAM: VS: BP (P) 143/105 Pulse (P) 71 Temp (P) 36.8 C (98.3 F) Ht (P) 167.6 cm (5' 6 ) Wt (P) 91.2 kg (201 lb) SpO2 (P) 100% BMI (P) 32.44 kg/m KPS: 100 General Appearance: Alert and oriented. No acute distress. Neck: Normal ROM. No palpable cervical or supraclavicular adenopathy. Well- healing low neck incision. No masses or nodularity notable Chest: No respiratory distress. Lungs clear to auscultation bilaterally. Heart: Regular rate and rhythm. Abdomen: Soft. Nontender. Nondistended. Musculoskeletal: No edema. Normal ROM in extremities. No bone or spine tenderness. Neuro: Speech fluent. Gait normal. No focal deficits. Skin: No rashes noted Lymphatics: No palpable lymphadenopathy. Hematologic: No signs of active bleeding. RADIOLOGY/LABORATORY DATA: Latest Reference Range & Units 07/08/22 12:04 Thyroglobulin 1.6 - 59.9 ng/mL 7.2 Thyroglobulin Ab, Serum <4.0 IU/mL <0.9 (C) Thyroglobulin, Serum 1.6 - 50.0 ng/mL 5.1 (C): Corrected ASSESSMENT/PLAN: Thyroid cancer, papillary carcinoma follicular variant, stage I [id number]. Status post thyroidectomy on 05/08/2022. Patient I do feel would benefit from postoperative I-131 therapy given size size of lesion, multiple areas, detectable postoperative thyroglobulin. The role of I-131 the situation discussed at length. Potential acute and long- term effects of radiation discussed at length. Radiation safety precautions also discussed. Patient was deemed to be a very good outpatient candidate. Patient will return for further discussion regarding low iodine diet in preparation for the I-131 delivery. We will plan using Thyrogen preparation prior to the I-131 delivery. She will then subsequently be placed on Synthroid replacement and appropriate TSH suppression. Patient expressed understanding of the information presented. Signed by: Navya Phelan MD cc: Nevin Lara [address] [place] [address] Elena Rey MD [address] [facility] [address] [facility]* Denise Vang LPN - 07/08/2022 10:56 AM EST Low iodine diet and radiatio safety reviewed with Jerardo. She denies questions at this time. Denise Vang LPN documented [facility] Evaluation + Plan note Extracted from: Title:Clinical Document Author:Krissy ANN, Elena Licea Date:05/09/22 ENT POD 1 Pt fresting comfortably AVSS Drain 8cc overnight AM Ca 9.0 Wound C/D/I. No fluid collection Drain removed. D/C home Extracted from: Title:Post-anesthesia - General Author:Rivas Montaño DO Date:05/08/22 Plan Transfer/ Discharge: Condition stable. Extracted from: Title:Pre-anesthesia - Adult Author:Rivas Fish Jr., DO Date:05/08/22 Plan [employer] (ASA) physical status classification: Class II. Anesthetic Preoperative Plan Anesthesia: General. . Anesthetic plan, risks, benefits, and alternatives discussed with the patient and/or family. Patient verbalized understanding. Adverse reactions, complications, and alternatives discujssed. Consent signed and on chart.. [facility]10-07-2022 NoteCRM to entered the room to discuss dc planning. PCP, DME and insurance discussed. Patient is alert and involved in plan of care. Contact information provided and whiteboard updated. Pt has no needs. Ant dc today. CRM to follow. Pt's dtr will transport.[facility] HospitalComment on above:Result Comment: Electronically Signed By: Fiorella Hopson\Date and Time Signed: 05/09/22 11:07 [id number] Hospital Discharge instructions Patient Education 05/09/2022 08:38:02 Thyroidectomy Thyroidectomy A thyroidectomy is a surgery that is done to remove the thyroid gland. The thyroid is a butterfly-shaped gland that is located at the lower front of your neck. It produces thyroid hormone, which is asubstance that helps to control certain body processes. You may have a: Total thyroidectomy. All of your thyroid is removed. Thyroid lobectomy. Part of your thyroid is removed. The amount of thyroid gland tissue that is removed during your surgery depends on the reason for the procedure. Reasons to have this procedure include treatment for: Thyroid nodules. Thyroid cancer. Benign thyroid tumors. Goiter. Overactive thyroid gland (hyperthyroidism). There are two ways to do this procedure. Conventional, or open, thyroidectomy uses one large incision to remove the thyroid gland. This is the most common method. Endoscopic thyroidectomy, a less invasive method, uses a narrow tube with a light and camera (endoscope) to remove the gland. Tell a health care provider about: Any allergies you have. All medicines you are taking, including vitamins, herbs, eye drops, creams, and skgu-zlw-abizmfj medicines. Any problems you or family members have had with anesthetic medicines. Any blood disorders you have. Any surgeries you have had. Any medical conditions you have. Whether you are or may be . What are the risks? Generally, this is a safe procedure. However, problems may occur, including: Damage to the parathyroid glands. These are located behind your thyroid gland. They maintain the calcium levels in the body. Damage may lead to: ?A decrease in parathyroid hormone levels (hypoparathyroidism). ?A decrease in calcium levels. This will make your nerves irritable and may cause muscle spasms. An increase in thyroid hormone. Damage to the nerves of your voice box (larynx). This can be temporary or long- term (rare). Hoarseness. This usually resolves in 24 48 hours. Bleeding. Infection. What happens before the procedure? Staying hydrated Follow instructions from your health care provider about hydration, which may include: Up to 2 hours before the procedure you may continue to drink clear liquids, such as water, clear fruit juice, black coffee, and plain tea. Eating and drinking restrictions Follow instructions from your health care provider about eating and drinking, which may include: 8 hours before the procedure stop eating heavy meals or foods such as meat, fried foods, or fatty foods. 6 hours before the procedure stop eating light meals or foods, such as toast or cereal. 6 hours before the procedure stop drinking milk or drinks that contain milk. 2 hours before the procedure stop drinking clear liquids. Medicines Ask your health care provider about: Changing or stopping your regular medicines. This is especially important if you are taking diabetes medicines or blood thinners. Taking medicines such as aspirin and ibuprofen. These medicines can thin your blood. Do not take these medicines unless your health care provider tells you to take them. Taking kpth-leb-dxngofe medicines, vitamins, herbs, and supplements. General instructions You may be asked to shower with a germ-killing soap. Plan to have someone take you home from the hospital or clinic. Plan to have a responsible adult care for you for at least 24 hours after you leave the hospital orclinic. This is important. What happens during the procedure? To reduce your risk of infection: ?Your health care team will wash or sanitize their hands. ?Hair may be removed from the surgical area. ?Your skin will be washed with soap. An IV will be inserted into one of your veins. You will be given one or more of the following: ?A medicine to help you relax (sedative). ?A medicine to make you fall asleep (general anesthetic). Your health care provider will perform your surgery using one of two methods: ?For open thyroidectomy, an incision will be made in your lower neck. Muscles in the area will be to reveal your thyroid gland. ?For endoscopic thyroidectomy, several small incisions will be made in your neck, chest, or armpit.An endoscopewill be inserted into an incision. Your health care provider may monitor laryngeal nerve function during the procedure for safety reasons. Part or all of your thyroid gland will be removed. A tube (drain) may be placed at the incision site to drain blood and fluids that accumulate under the skin after the procedure. The drain may have to stay in place for a day or two after the procedure. The incision will be closed with stitches (sutures). A dressing will be placed over your incision. The procedure may vary among health care providers and hospitals. What happens after the procedure? Your blood pressure, heart rate, breathing rate, and blood oxygen level will be monitored often until the medicines you were given have worn off. You will be given pain medicine as needed. Your provider will check your ability to talk and swallow after the procedure. You will gradually start to drink liquids and have soft foods as tolerated. You may have a blood test to check the level of calcium in your body. If you had a drain put in during the procedure, it will usually be removed the next day. Summary A thyroidectomy is a surgery that is done to remove the thyroid gland. The procedure will be done in one of two ways: conventional, or open, thyroidectomy or endoscopic thyroidectomy. Serious complications are rare. Plan to have a responsible adult care for you for at least 24 hours after you leave the hospital orclinic. This is important. This information is not intended to replace advice given to you by your health care provider. Make sure you discuss any questions you have with your health care provider. Document Released: 01/13/2002 Document Revised: 07/02/2018 Document Reviewed: 05/25/2018 [employer] Patient Education 2020 [employer]. 05/09/2022 08:37:56 Thyroidectomy, Care After Thyroidectomy, Care After This sheet gives you information about how to care for yourself after your procedure. Your health care provider may also give you more specific instructions. If you have problems or questions, contact your health care provider. What can I expect after the procedure? After the procedure, it is common to have: Mild pain in the neck or upper body, especially when swallowing. A swollen neck. A sore throat. A weak or hoarse voice. Slight tingling or numbness around your mouth, or in your fingers or toes. This may last for a day or two after surgery. This condition is caused by low levels of calcium. You may be given calcium supplements to treat it. Follow these instructions at home: Medicines Take wkai-oma-ypktsse and prescription medicines only as told by your health care provider. Do not drive or use heavy machinery while taking prescription pain medicine. Do not take medicines that contain aspirin and ibuprofen until your health care provider says that you can. These medicines can increase your risk of bleeding. Take a thyroid hormone medicine as recommended by your health care provider. You will have to take this medicine for the rest of your life if your entire thyroid was removed. Eating and drinking Start slowly with eating. You may need to have only liquids and soft foods for a few days or as directed by your health care provider. To prevent or treat constipation while you are taking prescription pain medicine, your health care provider may recommend that you: ?Drink enough fluid to keep your urine pale yellow. ?Take afcx-sqb-adsbsvu or prescription medicines. ?Eat foods that are high in fiber, such as fresh fruits and vegetables, whole grains, and beans. ?Limit foods that are high in fat and processed sugars, such as fried and sweet foods. Incision care Follow instructions from your health care provider about how to take care of your incision. Make sure you: ?Wash your hands with soap and water before you change your bandage (dressing). If soap and water are not available, use hand rpg programmer. ?Change your dressing as told by your health care provider. ?Leave stitches (sutures), skin glue, or adhesive strips in place. These skin closures may need to stay in place for 2 weeks or longer. If adhesive strip edges start to loosen and curl up, you may trim the loose edges. Do not remove adhesive strips completely unless your health care provider tells you to do that. Check your incision area every day for signs of infection. Check for: ?Redness, swelling, or pain. ?Fluid or blood. ?Warmth. ?Pus or a bad smell. Do not take baths, swim, or use a hot tub until your health care provider approves. Activity For the first 10 days after the procedure or as instructed by your health care provider: ?Do not lift anything that is heavier than 10 lb (4.5 kg). ?Do not jog, swim, or do other strenuous exercises. ?Do not play contact sports. Avoid sitting for a long time without moving. Get up to take short walks every 1 2 hours. This is needed to improve blood flow and breathing. Ask for help if you feel weak or unsteady. Return to your normal activities as told by your health care provider. Ask your health care provider what activities are safe for you. General instructions Do not use any products that contain nicotine or tobacco, such as cigarettes and e-cigarettes. These can delay healing after surgery. If you need help quitting, ask your health care provider. Keep all follow-up visits as told by your health care provider. This is important. Your health careprovider needs to monitor the calcium level in your blood to make sure that it does not become low. Contact a health care provider if you: Have a fever. Have more redness, swelling, or pain around your incision area. Have fluid or blood coming from your incision area. Notice that your incision area feels warm to the touch. Have pus or a bad smell coming from your incision area. Have trouble talking. Have nausea or vomiting for more than 2 days. Get help right away if you: Have trouble breathing. Have trouble swallowing. Develop a rash. Develop a cough that gets worse. Notice that your speech changes, or you have hoarseness that gets worse. Develop numbness, tingling, or muscle spasms in the arms, hands, feet, or face. Summary After the procedure, it is common to feel mild pain in the neck or upper body, especially when swallowing. Take medicines as told by your health care provider. These include pain medicines and thyroid hormones, if required. Follow instructions from your health care provider about how to take care of your incision. Watch for signs of infection. Keep all follow-up visits as told by your health care provider. This is important. Your health careprovider needs to monitor the calcium level in your blood to make sure that it does not become low. Get help right away if you develop difficulty breathing, or numbness, tingling, or muscle spasms inthe arms, hands, feet, or face. This information is not intended to replace advice given to you by your health care provider. Make sure you discuss any questions you have with your health care provider. Document Released: 02/06/2006 Document Revised: 09/15/2019 Document Reviewed: 05/25/2018 [employer] Patient Education 2020 [employer]. Follow Up Care 04/14/2022 08:22:39 With:Elena Rey Address: [address] [place] [address] [address], [address] [place] [address]- Business (1) When:05/16/2022 15:30:00 With:NEVIN LARA Address: [address] [place] [address] FAX [phone] [place], [place] [address]- Business (1) When: Unknown Comments:Only if needed. [facility]09-15-2022 Note [id number]:[id number] Plan note Future Appointments Appointment Date:05/08/2022 01:00:00 PM Scheduled Provider: Location[facility] Thyroid cancer (HCC)- Primary Malignant neoplasm of thyroid gland [facility] Diagnosis Malignant neoplasm of thyroid gland (HCC)- Primary Malignant neoplasm of thyroid gland documented in this encounter [facility] note* Diagnosis Malignant neoplasm of thyroid gland (HCC)- Primary Malignant neoplasm of thyroid gland documented in this encounter [facility] noteNo assessment information availableDayton [facility] Work Phone: Evaluation note* Diagnosis Malignant neoplasm of thyroid gland (HCC)- Primary Malignant neoplasm of thyroid gland documented in this encounter [facility] note* Diagnosis Thyroid cancer (HCC)- Primary Malignant neoplasm of thyroid gland documented in this encounter [facility] note* Diagnosis Malignant neoplasm of thyroid gland (HCC)- Primary Malignant neoplasm of thyroid gland documented in this encounter [facility] note* Diagnosis Thyroid cancer (HCC)- Primary Malignant neoplasm of thyroid gland documented in this encounter [facility] noteNo InformationNortHoly [facility] [email or web address] Other History general Narrative - Reported* Type Description Date Medical History ASTHMA Medical History MIGRAINE HEADACHES Medical History ALLERGIC RHINITIS Medical History HYPERTENSION Medical History PANIC ATTACKS Medical History SLURRED SPEECH Medical History TOE FRACTURE Medical History NECK STRAIN Medical History CHEST PAIN Medical History MULTIPLE THYROID NODULES Medical History ENLARGED THYROID Medical History NEUROPATHY OF UPPER EXTREMITY, U NSPECIFIED LATERALITY Medical History MUSCLE CRAMPING Medical History ANXIETY Surgical History CHOLECYSTECTOMY Surgical History BREAST BIOPSY Surgical History THYROIDECTOMY Surgical History EXTENSIVE HYSTERECTOMY Hospitalization History SEE ABOVE Hospitalization History 1 [facility] [email or web address] Other Hospital course Narrative No data available for this section [facility] Discharge instructions No data available for this section [facility] No data available for this section [facility] (narrative)* Diagnostic Procedure Only (Routine) - Pending Review Specialty Diagnoses / Procedures Referred By Meliton pendleton Referred To Contact MOLECULAR & FUNCTIONAL IMAGING Diagnoses Thyroid cancer (HCC) Procedures NM THERAPY THYROID I-131 RP THERAPY ORAL ADMINISTRATION Navya Phelan MD [address] [place] [address] [place] [address] Molecular & Functional Imaging [address] [place], [place] [id number] Referral ID Status Reason Start Date Expiration Date Visits Requested Visits Authorized [id number] Pending Review Auto-Generat ed Referral 07/08/2022 08/07/2023 1 1 [facility] Summary Purpose Family History No Family History Records FoundNo Family History Records FoundNo Family History Records FoundNo Family History Records FoundNo Family History Records FoundNo Family History Records Found Advance Directives No Advanced Directives Records Found Advance Directive Response Recorded Date/ Time Advance Directives No August 05, 2022 1:31pm Medications Administered Section Inactive Administered Medications - up to 3 most recent administrations Medication Order MAR Action Action Date Dose Rate Site thyrotropin mariana 0.9 mg injection (THYROGEN) 0.9 mg, INTRAMUSCULAR, ONCE, 1 dose, On Thu08/05/22 at 1000, REFRIGERATE Given 08/05/2022 10:15 AM EST 0.9 mg Buttocks, Left Inactive Administered Medications - up to 3 most recent administrations Medication Order MAR Action Action Date Dose Rate Site thyrotropin mariana 0.9 mg injection (THYROGEN) 0.9 mg, INTRAMUSCULAR, ONCE, 1 dose, On Thu08/06/22 at 1000, REFRIGERATE Given 08/06/2022 10:00 AM EST 0.9 mg Buttocks, Right Chief Complaint and Reason for Visit Chief Complaint Thyroid Cancer Chief Complaint N18.32 I12.9 Reason for Referral Specialty Diagnoses / Procedures Referred By Meliton pendleton Referred To Contact Endocrinology Diagnoses Thyroid cancer (HCC) Procedures CONSULT TO ENDOCRINOLOGY OFFICE/OUTPATIENT [facility]3] 60-74 MINUTES Navya Phelan MD [address] [place] [address] [place] [address] Referral ID Status Reason Start Date Expiration Date Visits Requested Visits Authorized [id number] Authorized PCP Requested Referral 04/02/2023 03/25/2024 1 1 Additional Source Comments INFORMATION SOURCE (unrecogn ized section and content) DATE CREATED AUTHOR 01/20/2018 [facility] DATE CREATED AUTHOR AUTHOR'S ORGANIZ ATION 05/25/2022 [facility] DATE CREATED AUTHOR AUTHOR'S ORGANIZ ATION 10/26/2022 Corina Dooley [facility] DATE CREATED AUTHOR AUTHOR'S ORGANIZ ATION 09/01/2023 [facility] DATE CREATED AUTHOR AUTHOR'S ORGANIZ ATION 09/11/2023 [facility] DATE CREATED AUTHOR AUTHOR'S ORGANIZ ATION 11/14/2023 [facility] Care Team (unrecognized sect ion and content) Team Status: Active Member Role Status Dates Nevin JonKIKI campbell POINT OF CARE SPECIALIST-C Primary Care Provider Active Team Status: Inactive Member Role Status Dates Nevin Lara APRN POINT OF CARE SPECIALIST-C Primary Care Provider Active Alejandra Card MD Attending Provider Active Marketing Communications Assistant Relationship Specialty Start Date End Date Nevin Lara CNP [address] [place] [address] PCP - General Internal Medicine 06/30/22 Marketing Communications Assistant Relationship Specialty Start Date End Date Nevin Lara CNP [address] [place] [address] PCP - General Internal Medicine 06/30/22 Marketing Communications Assistant Relationship Specialty Start Date End Date Nevin Lara CNP [address] [place] [address] PCP - General Internal Medicine 06/30/22 Marketing Communications Assistant Relationship Specialty Start Date End Date Nevin Lara CNP [address] [place] [address] PCP - General Internal Medicine 06/30/22 Marketing Communications Assistant Relationship Specialty Start Date End Date Nevin Lara CNP [address] [place] [address] PCP - General Internal Medicine 06/30/22 Team Status: Inactive Member Role Status Dates Nevin Lara APRN POINT OF CARE SPECIALIST-C Primary Care Provider Active [place] Phelan MD Attending Provider Active Marketing Communications Assistant Relationship Specialty Start Date End Date Nevin Lara CNP [address] [place] [address] PCP - General Internal Medicine 06/30/22 Marketing Communications Assistant Relationship Specialty Start Date End Date Nevin Lara CNP [address] [place] [address] PCP - General Internal Medicine 06/30/22 Marketing Communications Assistant Relationship Specialty Start Date End Date Nevin Lara CNP [address] [place] [address] PCP - General Internal Medicine 06/30/22 Marketing Communications Assistant Relationship Specialty Start Date End Date Nevin Lara CNP [address] [place] [address] PCP - General Internal Medicine 06/30/22 Marketing Communications Assistant Relationship Specialty Start Date End Date Nevin Lara CNP [address] [place] [address] PCP - General Internal Medicine 06/30/22 Marketing Communications Assistant Relationship Specialty Start Date End Date Nevin Lara CNP [address] [place] [id number] PCP - General Internal Medicine 06/30/22 Source Comments (unrecognize d section and content) In the event this informatio n is protected by the Federal Confidentiality of Alcohol and Drug Abuse Patient Records regulations: The Federal rules restrict any use of the information to criminally investigate or prosecute any alcohol or drug abuse patient.[facility] HealthIn the event this information is protected by the Federal Confidentiality of Alcohol and Drug Abuse Patient Records regulations: The Federal rules restrict any use of the information to criminally investigate or prosecute any alcohol or drug abuse patient.[facility] HealthIn the event this information is protected by the Federal Confidentiality of Alcohol and Drug Abuse Patient Records regulations: The Federal rules restrict any use of the information to criminally investigate or prosecute any alcohol or drug abuse patient.[facility] HealthIn the event this information is protected by the Federal Confidentiality of Alcohol and Drug Abuse Patient Records regulations: The Federal rules restrict any use of the information to criminally investigate or prosecute any alcohol or drug abuse patient.[facility] HealthIn the event this information is protected by the Federal Confidentiality of Alcohol and Drug Abuse Patient Records regulations: The Federal rules restrict any use of the information to criminally investigate or prosecute any alcohol or drug abuse patient.[facility] HealthIn the event this information is protected by the Federal Confidentiality of Alcohol and Drug Abuse Patient Records regulations: The Federal rules restrict any use of the information to criminally investigate or prosecute any alcohol or drug abuse patient.[facility] HealthIn the event this information is protected by the Federal Confidentiality of Alcohol and Drug Abuse Patient Records regulations: The Federal rules restrict any use of the information to criminally investigate or prosecute any alcohol or drug abuse patient.[facility] HealthIn the event this information is protected by the Federal Confidentiality of Alcohol and Drug Abuse Patient Records regulations: The Federal rules restrict any use of the information to criminally investigate or prosecute any alcohol or drug abuse patient.[facility] HealthIn the event this information is protected by the Federal Confidentiality of Alcohol and Drug Abuse Patient Records regulations: The Federal rules restrict any use of the information to criminally investigate or prosecute any alcohol or drug abuse patient.[facility] HealthIn the event this information is protected by the Federal Confidentiality of Alcohol and Drug Abuse Patient Records regulations: The Federal rules restrict any use of the information to criminally investigate or prosecute any alcohol or drug abuse patient.[facility] HealthIn the event this information is protected by the Federal Confidentiality of Alcohol and Drug Abuse Patient Records regulations: The Federal rules restrict any use of the information to criminally investigate or prosecute any alcohol or drug abuse patient.[facility] HealthIn the event this information is protected by the Federal Confidentiality of Alcohol and Drug Abuse Patient Records regulations: The Federal rules restrict any use of the information to criminally investigate or prosecute any alcohol or drug abuse patient.[facility] HealthIn the event this information is protected by the Federal Confidentiality of Alcohol and Drug Abuse Patient Records regulations: The Federal rules restrict any use of the information to criminally investigate or prosecute any alcohol or drug abuse patient.[facility] HealthIn the event this information is protected by the Federal Confidentiality of Alcohol and Drug Abuse Patient Records regulations: The Federal rules restrict any use of the information to criminally investigate or prosecute any alcohol or drug abuse patient.[facility] HealthIn the event this information is protected by the Federal Confidentiality of Alcohol and Drug Abuse Patient Records regulations: The Federal rules restrict any use of the information to criminally investigate or prosecute any alcohol or drug abuse patient.[facility] HealthIn the event this information is protected by the Federal Confidentiality of Alcohol and Drug Abuse Patient Records regulations: The Federal rules restrict any use of the information to criminally investigate or prosecute any alcohol or drug abuse patient.[facility] HealthIn the event this information is protected by the Federal Confidentiality of Alcohol and Drug Abuse Patient Records regulations: The Federal rules restrict any use of the information to criminally investigate or prosecute any alcohol or drug abuse patient.[facility] Reason for Visit (unrecogniz ed section and content) Reason Comments Thyroid Cancer Specialty Diagnoses / Procedures Referred By Contac t Referred To Contact Diagnoses Malignant neoplasm of thyroid gland (HCC) Procedures THYROTROPIN INJECTION Navya Phelan MD [address] [place] [address] [facility] [address] [place] [address] Referral ID Status Reason Start Date Expiration Date V isits Requested Visits Authorized [id number] Authorized 07/29/2022 10/27/2022 2 2 Reason Comments Nausea Reason Onset Date Comments Refill Request 08/28/2022 Reason Comments Social [facility] [place] [facility] [employer] [facility] follow up. Reason Comments Received Outside Medical Records Externa l referral to [facility] [place] Reason Comments Received Outside Medical Records Externa l EMG & lab reports Goals (unrecognized section and content) Goals may be documented in a n alternate section FOR RECORDS PERTAINING TO PATIENTS WHO ARE OR HAVE BEEN ENROLLED IN A CHEMICAL DEPENDENCY/SUBSTANCEABUSE PROGRAM, SOME INFORMATION MAY BE OMITTED. This clinical summary was aggregated from multiple sources. Caution should be exercised in using it in the provision of clinical care. This summary normalizes information from multiple sources, and as a consequence, information in this document may materially change the coding, format and clinical context of patient data. In addition, data may be omitted in some cases. CLINICAL DECISIONS SHOULD BE BASED ON THE PRIMARY CLINICAL RECORDS. [employer] [facility]. provides no warranty or guarantee of the accuracy or completeness of information in this document.
[2023-12-04 10:44] LABS: Hematocrit 35.6 % (36.0-48.0); Hemoglobin 11.1 g/dL (12.0-16.0); Mean Corpuscular HGB Conc 31.2 g/dL (29.9-35.2); Mean Corpuscular Hemoglobin 29.1 pg (26.7-34.0); Mean Corpuscular Volume 93.4 fL (81.0-99.0); Mean Platelet Volume 10.7 fL (9.5-13.5); Platelet Count 245 10^3/uL (150-450); Red Blood Count 3.81 10^6/uL (4.20-5.40); Red Cell Distribution Width 14.6 % (11.0-15.0)
[2023-12-04 10:57] LABS: Alanine Aminotransferase 84 U/L (14-59); Albumin Globulin Ratio 1.1; Albumin Level 4.1 g/dL (3.4-5.0); Alkaline Phosphatase 110 U/L (46-116); Anion Gap 11.5; Aspartate Amino Transferase 106 U/L (15-37); BUN Creatinine Ratio 7.6; Bilirubin Total 1.2 mg/dL (0.2-1.0); Calcium 9.5 mg/dL (8.5-10.1); Carbon Dioxide 29.1 mmol/L (21.0-32.0); Chloride 105 mmol/L (98-107); Estimated GFR (African America 43 (>=60); Estimated GFR (Non-African Ame 35 (>=60); Globulin 3.7 g/dL; Glucose 76 mg/dL (74-106); Magnesium 2.3 mg/dL (1.8-2.4); Phosphorus 4.6 mg/dL (2.6-4.7); Potassium 3.6 mmol/L (3.5-5.1); Sodium 142 mmol/L (136-145); Total Protein 7.8 g/dL (6.4-8.2)
[2023-12-04 11:21] LABS: Creatinine Urine Random 210.78 mg/dL (20.00-300.00); Protein Creatinine Ratio Urine 0.15; Total Protein Urine Random 31.1 mg/dL (<=11.9)
[2023-12-04 12:14] LABS: Bilirubin Urine NEGATIVE (NEGATIVE); Blood Urine SMALL (NEGATIVE); Clarity Urine CLEAR (CLEAR); Glucose Urine UA NEGATIVE (NEGATIVE); Ketones Urine NEGATIVE (NEGATIVE); Leukocyte Esterase Urine LARGE (NEGATIVE); Nitrite Urine NEGATIVE (NEGATIVE); Protein Urine NEGATIVE (NEG/TRACE); Specific Gravity Urine 1.025 (1.005-1.025); pH Urine 5.5 (5.0-9.0)
[2023-12-04 13:04] LABS: Color Urine DK YELLOW (YELLOW)
[2023-12-06 11:10] LABS: PTH, Intact 89 pg/mL (15-65)
== END 2023-12-04 10:08 | disposition home or self-care (01) ==
LOC: LAB 10:11
PROVIDERS: Visit Provider Internal Medicine Nephrology
DX: I12.9 Hypertensive chronic kidney disease with stage 1 through stage 4 chronic kidney disease, or unspecified chronic kidney disease (principal); N18.32 Chronic kidney disease, stage 3b
CPT/HCPCS: 36415; 80053; 81003; 82306; 82570; 83735; 83970; 84100; 84156; 84550; 85027

== ENCOUNTER 2024-04-08 19:05 | Emergency (ER) | payer OTHER, SELFPAY ==
[2024-04-08] VITALS (14 sets, daily range): BP systolic 154–166; BP diastolic 108; PULSE 53–66; TEMP 36.6; O2SAT 99; BMI 32.3
--- OUTSIDE RECORDS SUMMARY | 2024-04-08 19:15 | XMS_ITS | CCD ---
Author Organization [facility] ion [facility] Care Team Providers Care Health Care Consultant Name Role Phone ARANGO, GINNY Mendosa Unavailable Unavailable MALONE, IVÁN SCHILLING Unavailable Unavailabl e Kristen Macias Unavailable UnavailNEVIN Nolasco Primary Care Physician Timmis, Elnea H Referring Unavailable Timmis, Elena H Attending Unavailable Timmis, Elena H Admitting Unavailable Timmis, Elena H Referring Unavailable Timmis, Elena H Attending Unavailable Timmis, Elena H Admitting Unavailable Nevin Lara CNP Primary Care Provider KIKI Lara Primary Care Provider MD [place] Phelan Attending Provider DR WESLY PHELAN Admitting Unavailable DR WESLY PHELAN Attending Unavailable [facility] Primary Care Unava ilable DR WESLY PHELAN Consulting Unavailable Alejandra Card Unavailable KIKI Lara Primary Care Provider MD Alejandra Card Attending Provider ANGLIM, NEVIN [...] Attending Unavailable ANGLIM, NEVIN Primary Care Unavailable JonlimCARLEEN Nevin Primary Care Provider [phone] MD Musa Carrasquillo Attending Provider Anglim, Nevin Primary Care Unavailable Neida, Musa Attending Unavailable Musa Carrasquillo Admitting Unavailable BakvikysAlejandra Admitting Unavailable Anglim, Nevin Primary Care Unavailable BakvikysAlejandra Attending Unavailable ANGLIM, NEVIN A Referring Unavailable SERVICES, [facility] Unava ilable LORENA, AHMAD F Referring Unavailable SERVICES, [facility] Un[facility] ilable ARON LARAA A Referring Unavailable SERVICES, [facility] Unava ilable SERVICES, [facility] Un[facility] TROY HOLT Attending Unavailable TROY HOLT Attending Unavailable SERVICES, [facility] Unava ilable SERVICES, [facility] Un[facility] il[facility] AJAY TELLO Attending Unavailabl e YOUNG GARCIA Attending Unavailable YOUNG GARCIA Referring Unavailable SERVICES, [facility] Unava il[facility] IRMA JOSEPH Attending Unavailabl IRMA Hendricksno Referring Unavailabl e SERVICES, [facility] Unava il[facility] LORENA, AHMAD F Referring Unavailable SERVICES, [facility] Unava ilable Allergies Allergy Classification Reported Allergen(s) Allergy Type Date of Onset Reaction(s) Facility (20 sources) Penicillins; Translations: [penicillins] Propensity to adverse reactions to drug (disorder) 6 Rash, Swelling, Shortness of Breath [facility] Repository (2 sources) Penicillin Drug Allergy Unknown [facility] [place] Other Medications Current Medications Medication Drug Class(es) Dates Sig (Normalized) Sig (Original) [id number] 200 actuat albuterol 0.09 mg/actuat metered dose inhaler (20 sources) beta2-Adrenergic Agonist Start: 12-08-2023 take 1 puff(s) by inhalation every four hours Albuterol Sulfate Active 2 PUFF INHALATION Every 4 hours December 08, 2023 12:00am take 1 puff(s) by in halation every [...] 0, Asthma Start Date: 04/29/22 Status: Ordered amLODIPine 10 mg oral tablet (20 sources) Dihydropyridine Calcium Channel Faith Start: 12-08-19 take 10 mg by mouth once daily Amlodipine Active 10 MG PO Daily December 08, 2023 12:00am Start: 05-06-2022 amLODIPine (NO RVASC) 5 mg tablet Take 5 mg by mouth. 0 05/06/2022 Active take 1 tablet by teodoro th every twenty-four hours amLODIPine Besylate 10 MG 1 tablet Orally Once a day Active Comment on above: Take 5 mg by mouth. busPIRone hydrochloride 5 mg oral tablet (3 sources) Start: 12-08-2023 take 5 mg by mouth twice daily Buspirone Active 5 MG PO Twice daily December 08, 2023 12:00am take 1 tablet by teodoro th every twelve hours busPIRone HCl 5 MG 1 tablet Orally Twice a day Active carvedilol 6.25 mg oral tablet (1 source) alpha-Adrenergic Fatih, beta-Adrenergic Faith Start: 12-08-2023 take 1 tablet by mouth twice daily at mealtime Carvedilol (Coreg) 6.25 mg tablet Active 6.25 MG PO Twice daily 60 December 08, 2023 12:00am must administer with a meal/food cholecalciferol 1.25 mg oral capsule (1 source) Vitamin D Start: 12-08-2023 take 1250 ug by mouth every week Cholecalciferol (Vitamin D3) Active 1250 MCG PO every week December 08, 2023 12:00am hydroCHLOROthiazide 25 mg oral tablet (1 source) Thiazide Diuretic Start: 12-08-2023 take 25 mg by mouth once daily Hydrochlorothiazide Active 25 MG PO Daily December 08, 2023 12:00am Hydrochlorothiazide-25 mg 25 mg (2 sources) Start: 06-24-2023 take 1 tablet by mouth once daily Hydrochlorothiazide-2 5 mg 25 mg 1 tablet Orally Once a day for 90 days Jun, Active take 1 tablet by mouth once karen y Hydrochlorothiazide-25 mg 25 mg 1 tablet Orally Once a day for 90 days Active levothyroxine sodium 0.2 mg oral tablet (20 sources) l-Thyroxine Start: 12-08-2023 take 400 ug by mouth once daily Levothyroxine Active 400 MCG PO Daily December 08, 2023 12:00am Start: 02-05-2023 End: 03-26-2023 take 1 tablet by mouth once daily [...] daily liothyronine sodium 0.025 mg oral tablet (12 sources) l-Triiodothyronine Start: take 25 ug by mouth once daily Liothyronine Active 25 MCG PO Daily December 08, 2023 12:00am Start: 05-20-2022 liothyronine ( CYTOMEL) 25 mcg tablet Take 25 mcg by mouth. 0 05/20/2022 Active take 1 tablet by teodoro th every twenty-four hours Liothyronine Sodium 25 MCG 1 tablet on an empty stomach Orally Once a day Active Comment on above: Take 25 mcg by mouth . losartan potassium 100 mg oral tablet (3 sources) Angiotensin 2 Receptor Faith Start: 12-08-2023 take 100 mg by mouth once daily Losartan Active 100 MG PO Daily December 08, 2023 12:00am take 1 tablet by teodoro th every twenty-four hours Losartan Potassium 100 MG 1 tablet Orally Once a day Active nystatin 100 unt/mg topical powder (3 sources) Polyene Antifungal Start: 12-08-2023 Nystatin Ac tive 1 APPLIC TOPICAL Twice daily December 08, 2023 12:00am Nystatin [id number] UNIT/GM 1 application Externally Twice a day Active omeprazole 40 mg delayed release oral capsule (1 source) Proton Pump Inhibitor Start: 01-19-2024 take 40 mg by mouth once daily Omeprazole Active 40 MG PO Daily January 19, 2024 12:00am Completed/Discontinued Medications Medication Drug Class(es) Dates Sig (Normalized) Sig (Original) hydrOXYzine pamoate 25 mg oral capsule (2 sources) Antihistamine take 1 capsule by mouth every twenty-four hours hydrOXYzine Pamoate 25 MG 1 capsule at bedtime as needed Orally Once a day Not-Taking/PRN lisinopril 5 mg oral tablet (12 sources) Angiotensin Converting Enzyme Inhibitor Start: 07-07-2022 take 1 tablet by mouth once daily lisinopril (ZESTRIL, PRINIVIL) 5 mg tablet Take 5 mg by mouth once daily. 0 07/07/2022 Active Comment on above: Take 5 mg by mouth o nce daily. ondansetron 8 mg oral tablet (4 sources) Serotonin-3 Receptor Antagonist Start: 08-06-2022 End: 10-22-2022 take 1 tablet by mouth every eight hours as needed ondansetron (ZOFRAN) 8 mg tablet Take 1 tablet by mouth every 8 hours as needed for nausea/vomiting. 21 tablet 1 08/06/2022 10/22/2022 Discontinued Comment on above: Take 1 tablet by teodoro th every 8 hours as needed for nausea/vomiting. pilocarpine hydrochloride 5 mg oral tablet (9 sources) Cholinergic Receptor Agonist Start: 07-08-2022 take 1 tablet by mouth three times daily pilocarpine (SALAGEN, PILOCARPINE,) 5 mg tablet Indications: Thyroid cancer (HCC) Take 1 tablet by mouth three times daily. 15 tablet 0 07/08/2022 Active Comment on above: Take 1 tablet by teodoro th three times daily. prochlorperazine 10 mg oral tablet (11 sources) Phenothiazine Start: 07-08-2022 End: 10-22-2022 take 1 tablet by mouth every eight [...] gland] Onset: 07-29-2022 Chronic Chronic kidney disease (4 sources) Chronic kidney disease stage 3B ; Translations: [Stage 3b chronic kidney disease (CKD)] 12-06-2023 Chronic Chronic kidney disease (3 sources) Chronic kidney disease; Translations: [Hypertensive chronic kidney disease with stage 1 through stage 4 chronic kidney disease, or unspecified chronic kidney disease] Onset: 07-09-2023 Complications of surgical procedures or medical care (1 source) Postprocedural hypothyroidism; Translations: [Postprocedural hypothyroidism] Onset: 11-13-2023 Chronic Deficiency and other anemia (1 source) Anemia; Translations: [Anemia, unspecified] 12-08-2023 Episodic Deficiency and other anemia (1 source) Anemia, unspecified; Translations: [Anemia, unspecified] 12-08-2023 Episodic Hypertension with complications and secondary hypertension (5 sources) Hypertensive renal disease; Translations: [Hypertensive chronic kidney disease with stage 1 through stage 4 chronic kidney disease, or unspecified chronic kidney disease] Chronic Nutritional deficiencies (3 sources) Vitamin D deficiency; Translations: [Vitamin D deficiency, unspecified] Onset: 11-13-2023 12-08-2023 Chronic Other connective tissue disease (1 source) Myalgia, unspecified site; Translations: [Myalgia] Onset: 08-22-2023 Episodic Other connective tissue disease (1 source) Other specified disorders of muscle; Translations: [Myotonia] Onset: 08-22-2023 Episodic Other endocrine disorders (1 source) Hyperparathyroidism; Translations: [Hyperparathyroidism, unspecified] 12-08-2023 Chronic Other endocrine disorders (1 source) Hyperparathyroidism, unspecified; Translations: [Hyperparathyroidism, unspecified] 12-08-2023 Chronic Other injuries and conditions due to external causes (1 source) Foreign body in right ear, initial encounter; Translations: [Foreign body in right ear, initial encounter] Onset: 03-01-2024 Episodic Other liver diseases (1 source) Abnormal levels of other serum enzymes; Translations: [HyperCKemia] Onset: 08-22-2023 Episodic Other skin disorders (2 sources) Mass of neck 04-29-2022 Episodic Thyroid disorders (1 source) Iodine-deficiency related diffuse (endemic) goiter; 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] Onset: 05-09-2022 Chronic Thyroid disorders (1 source) Disorder of thyroid gland; Translations: [Disorder of thyroid, unspecified] Onset: 05-09-2022 Episodic Unclassified (1 source) Earache Onset: 03-01-2024 Unclassified (1 source) Ear Pain, Jaw Pain Onset: 03-01-2024 Urinary tract infections (1 source) Tubulo-interstitial nephritis, not specified as acute or chronic; Translations: [Tubulo-interstitial nephritis, not specified as acute or chronic] Onset: 03-13-2024 Episodic Past or Other Problems Problem Classification Problem Date Documented Date Episodic/Chronic Abdominal pain (2 sources) Unspecified abdominal pain; Translations: [Flank pain] Onset: 08-12-2023 Episodic Other screening for suspected conditions (not mental disorders or infectious disease) (5 sources) Abnormal electromyogram [EMG]; Translations: [Other specified abnormal findings of blood chemistry] Onset: 08-22-2023 12-08-2023 Episodic Results Test Name Value Interpretation Reference Range Facility FREE T3on 03-28-2024 Free T3 [Mass/Vol] 2.47 pg/mL Low 2.50-3.90 [facility] Comment on above: Performed By: #### 3 051-0, 83747-0, THYR ####[facility] ([id number])[address] [address], [place] [address] THYROID PROFILEon 03-28-2024 Free T4 [Mass/Vol] ng/dL Low 0.61-1.60 [facility] Comment on above: Performed By: #### 3 051-0, 74858-2, THYR ####[facility] ([id number])[address] [address], [place] [address] TSH 129.32 uIU/mL High 0.49-4.67 [facility] Comment on above: Performed By: #### 3 051-0, 78345-2, THYR ####[facility] ([id number])[address] [address], [place] [address] Vitamin D+Metabolites [Mass/ Vol]on 03-28-2024 VITAMIN D 25 HYD TOT 19.6 ng/mL Low 30-100 [facility] Comment on above: Result Comment: Vitamin D status 25 [place] Vitamin D Deficiency <20 ng/mL Insufficiency 20-29 ng/mL Sufficiency 30-100 ng/mL Toxicity >100 ng/mL NOTE: A pediatric reference range has not been established by the wrist hemmer of this kit. The [place] [employer] recommends a Vitamin D level of = or >20ng/mL in infants and children. Performed By: #### 3 051-0, 10797-0, THYR ####[facility] ([id number])[address] [address], [place] [address] CBC AND AUTO DIFFon 03-13-20 24 ABSOLUTE BASOPHIL 0.1 X10E9/L Normal 0.0-0.2 [facility] Comment on above: Performed By: #### C YASMINE, CMP, #### [facility] ([id number]) [address] [place] [address] 76697 ABSOLUTE NEUTROPHIL 5.3 X10E9/L Normal 1.5-6.6 [facility] Comment on above: Performed By: #### C YASMINE, CMP, #### [facility] ([id number]) [address] [place] [address] 48463 Basophils/100 WBC (Bld) 0.9 % Normal [facility] Comment on above: Performed By: #### Jose UNDERWOOD, CMP, #### [facility] ([id number]) [address] [place] [address] 48382 Eosinophils (Bld) [#/Vol] 0.1 10*3/uL Normal 0.0-0.4 [facility] Comment on above: Performed By: #### Jose UNDERWOOD, [facility], #### [facility] ([id number]) [address] [place] [address] 82379 Eosinophils/100 WBC (Bld) 1.0 % Normal [facility] Comment on above: Performed By: #### Jose UNDERWOOD, [facility], #### [facility] ([id number]) [address] [place] [address] 96293 Erythrocyte distribution width (RBC) [Ratio] 14.9 % Normal 11.5-15.0 [facility] Comment on above: Performed By: #### C YASMINE, CMP, #### [facility] ([id number]) [address] [place] [address] 34758 Hematocrit (Bld) [Volume fraction] 38.4 % Normal 35-47 [facility] Comment on above: Performed By: #### Jose UNDERWOOD, CMP, #### [facility] ([id number]) [address] [place] [address] 13032 Hemoglobin (Bld) [Mass/Vol] 12.7 g/dL Normal 11.7-15.5 [facility] Comment on above: Performed By: #### Jose UNDERWOOD CMP, 67821-4 #### [facility] ([id number]) [address] [place] [address] 87987 Lymphocytes (Bld) [#/Vol] 3.0 10*3/uL Normal 1.0-3.5 [facility] Comment on above: Performed By: #### Jose UNDERWOOD [facility], #### [facility] ([id number]) [address] [place] [address] 69292 Lymphocytes/100 WBC (Bld) 33.9 % Normal [facility] Comment on above: Performed By: #### Jose UNDERWOOD [facility], #### [facility] ([id number]) [address] [place] [address] 68481 MCH (RBC) [Entitic mass] 29.3 pg Normal 27-34 [facility] Comment on above: Performed By: #### Jose UNDERWOOD [facility], #### [facility] ([id number]) [address] [place] [address] 23279 MCHC (RBC) [Mass/Vol] 33.0 g/dL Normal 32-36 [facility] Comment on above: Performed By: #### Jose UNDERWOOD CMP, #### [facility] ([id number]) [address] [place] [address] 40223 MCV (RBC) [Entitic vol] 89 fL Normal 80-100 [facility] Comment on above: Performed By: #### Jose UNDERWOOD CMP, #### [facility] ([id number]) [address] [place] [address] 36852 Monocytes (Bld) [#/Vol] 0.4 10*3/uL Normal 0-0.9 [facility] Comment on above: Performed By: #### C GLENN UNDERWOOD, 28628-6 #### [facility] ([id number]) [address] [place] [address] 39409 Monocytes/100 WBC (Bld) 4.0 % Normal [facility] Comment on above: Performed By: #### Jose UNDERWOOD CMP, 21882-9 #### [facility] ([id number]) [address] [place] [address] 98429 Neutrophils/100 WBC (Bld) 60.2 % Normal [facility] Comment on above: Performed By: #### Jose UNDERWOOD CMP, 90483-9 #### [facility] ([id number]) [address] [place] [address] 19819 Platelet mean volume (Bld) [Entitic vol] 9.0 fL Normal 7-12 [facility] Comment on above: Performed By: #### Jose UNDERWOOD CMP, 68237-7 #### [facility] ([id number]) [address] [place] [address] 14517 Platelets (Bld) [#/Vol] 270 10*3/uL Normal 150-450 [facility] Comment on above: Performed By: #### Jose UNDERWOOD CMP, #### [facility] ([id number]) [address] [place] [address] [place] [address] RBC COUNT 4.33 X10E12/L Normal 3.80-5.20 [facility] Comment on above: Performed By: #### Jose UNDERWOOD CMP, #### [facility] ([id number]) [address] [place] [address] 36218 WBC (Bld) [#/Vol] 8.8 10*3/uL Normal 4.0-11.0 [facility] Comment on above: Performed By: #### C BCA, CMP, #### [facility] ([id number]) [address] [place] [address] 22833 COMPREHENSIVE METABOLIC PANE Mayank 03-13-2024 Albumin [Mass/Vol] 4.6 g/dL Normal 3.2-5.3 [facility] Comment on above: Performed By: #### C BCA, CMP, #### [facility] ([id number]) [address] [place] [address] 79371 ALP [Catalytic activity/Vol] 80 U/L Normal 39-130 [facility] Comment on above: Performed By: #### C BCA, CMP, #### [facility] ([id number]) [address] [place] [address] 22326 ALT [Catalytic activity/Vol] 40 U/L High 0-31 [facility] Comment on above: Performed By: #### C BCA, CMP, 91023-3 #### [facility] ([id number]) [address] [place] [address] 45534 Anion gap [Moles/Vol] 8 mmol/L Normal 5-15 [facility] Comment on above: Performed By: #### C BCA, CMP, 65477-3 #### [facility] ([id number]) [address] [place] [address] 08645 AST [Catalytic activity/Vol] 58 U/L High 0-41 [facility] Comment on above: Performed By: #### C BCA, CMP, 61699-3 #### [facility] ([id number]) [address] [place] [address] 08312 Bilirubin [Mass/Vol] 0.6 mg/dL Normal 0.3-1.2 [facility] Comment on above: Performed By: #### C BCA, CMP, #### [facility] ([id number]) [address] [place] [address] 20306 Calcium [Mass/Vol] 9.4 mg/dL Normal 8.5-10.5 [facility] Comment on above: Performed By: #### C GLENN UNDERWOOD, 72040-8 #### [facility] ([id number]) [address] [place] [address] 54767 Chloride [Moles/Vol] 103 mmol/L Normal 98-109 [facility] Comment on above: Performed By: #### C GLENN UNDERWOOD, 43186-3 #### [facility] ([id number]) [address] [place] [address] 48867 CO2 [Moles/Vol] 24 mmol/L Normal 22-32 [facility] Comment on above: Performed By: #### C GLENN UNDERWOOD, 22336-9 #### [facility] ([id number]) [address] [place] [address] 23506 Creatinine [Mass/Vol] 1.65 mg/dL High 0.40-1.00 [facility] Comment on above: Result Comment: METH OD TRACEABLE TO IDMS STANDARD Performed By: #### C GLENN UNDERWOOD, 63375-7 #### [facility] ([id number]) [address] [place] [address] 83823 GFR/1.73 sq M.predicted among non-blacks MDRD (S/P/Bld) [Vol rate/Area] 39 mL/min/{1.73_m2} Low >59 [facility] Comment on above: Result Comment: Reported eGFR is based on the CKD-EPI 2020 equation that does not use a race coefficient. Performed By: #### C GLENN UNDERWOOD, #### [facility] ([id number]) [address] [place] [address] 16290 Glucose [Mass/Vol] 118 mg/dL High 65-99 [facility] Comment on above: Performed By: #### C GLENN UNDERWOOD, 87762-1 #### [facility] ([id number]) [address] [place] [address] 01975 Potassium [Moles/Vol] 3.5 mmol/L Normal 3.5-5.0 [facility] Comment on above: Performed By: #### C BCA, CMP, 24714-8 #### [facility] ([id number]) [address] [place] [address] 64644 Protein [Mass/Vol] 7.7 g/dL Normal 6.0-8.0 [facility] Comment on above: Performed By: #### C BCA, CMP, 86564-0 #### [facility] ([id number]) [address] [place] [address] 57555 Sodium [Moles/Vol] 135 mmol/L Normal 134-146 [facility] Comment on above: Performed By: #### C BCA, CMP, 90773-2 #### [facility] ([id number]) [address] [place] [address] 55231 Urea nitrogen [Mass/Vol] 10 mg/dL Normal 5-23 [facility] Comment on above: Performed By: #### C BCA, CMP, 15435-5 #### [facility] ([id number]) [address] [place] [address] ABDOMEN AND PELVIS WO CON Ton 03-13-2024 CT ABDOMEN AND PELVIS WO CONT CT ABDOMEN AND PELVIS WO CONT CT ABDOMEN AND PELVIS WO CONT CLINICAL HISTORY: Abdominal pain radiating to the right flank COMPARISON: 02/02/2023 TECHNIQUE: * CT of the abdomen and pelvis was performed without intravenous contrast. Coronal and sagittal reformatted images were generated and reviewed. Automated exposure control was utilized. * All CT scans at this facility use dose modulation, iterative reconstruction, and/or weight based dosing when appropriate to reduce radiation dose to as low as reasonably achievable. FINDINGS: Evaluation of the solid viscera and vascular structures is compromised without the use of IV contrast. Visualized portions of lung parenchyma appear unremarkable. No pericardial or pleural effusions. No intra-abdominal free air or free fluid. Noncirrhotic hepatic contour with no focal hepatic lesion identified. Diffuse hepatic steatosis. Cholecystectomy. Spleen, pancreas, and adrenal glands appear unremarkable. No nephrolithiasis, hydronephrosis, or suspicious renal lesion. No pelvic free fluid. Hysterectomy. The small bowel, terminal ileum, large bowel, and appendix appear unremarkable. No abdominal or pelvic lymphadenopathy. Nonaneurysmal abdominal aorta. No acute osseous abnormality. IMPRESSION: * No acute abdominopelvic process. No renal/ureteral calculi or evidence of obstructive uropathy. * Hepatic steatosis. Approved by Resident: Marlon Anderson MD on 03/13/2024 4:26 PM I, Nacho Real MD have personally reviewed the image(s) and agree with and/or edited the report Finalized by Nacho Real MD on 03/13/2024 4:41 PM Normal [facility] MAGNESIUMon 03-13-2024 Magnesium [Mass/Vol] 1.9 mg/dL Normal 1.8-2.6 [facility] Comment on above: Performed By: #### C BCA, CMP, 28543-5 ####[facility] ([id number])[address] [place] [address] 31843 URINE CULTUREon 03-13-2024 Bacteria identified Cx Nom (U) CULTURE RESULTS 10,000 to 50,000 ORGANISMS/mL STREPTOCOCCUS AGALACTIAE (GROUP B) 10,000 to 50,000 ORGANISMS/mL NORMAL URO GENITAL ROSANNA Normal [facility] Comment on above: Performed By: #### 6 30-4 ####[facility] ([id number])[address] [facility], [place] [address] URN MACROSCOPIC NURon 2023 BILIRUBIN LILLIE Negative Normal NEG [facility] Comment on above: Performed By: #### N UM #### [facility] ([id number]) [address] [place] [address] 19394 BLOOD/HGB LILLIE MODERATE Abnormal NEG [facility] Comment on above: Performed By: #### N UM #### [facility] ([id number]) [address] [place] [address] [place] [address] GLUCOSE LILLIE Negative Normal NEG [facility] Comment on above: Performed By: #### N UM #### [facility] ([id number]) [address] [place] [address] [place] [address] KETONES LILLIE Negative Normal NEG [facility] Comment on above: Performed By: #### N UM #### [facility] ([id number]) [address] [place] [address] [place] [address] LEUKOCYTE ESTERASE LILLIE Trace Abnormal NEG [facility] Comment on above: Performed By: #### N UM #### [facility] ([id number]) [address] [place] [id number] NITRITE LILLIE Positive Abnormal NEG [facility] Comment on above: Performed By: #### N UM #### [facility] ([id number]) [address] [place] [address] [place] [address] PH LILLIE 5.5 Normal 5.0-8.5 [facility] Comment on above: Performed By: #### N UM #### [facility] ([id number]) [address] [place] [address] [place] [address] PROTEIN LILLIE Trace Abnormal NEG [facility] Comment on above: Performed By: #### N UM #### [facility] ([id number]) [address] [place] [address], [place] [address] SPECIFIC GRAVITY LILLIE >=1.030 Normal 1.003-1.035 [facility] Comment on above: Performed By: #### N UM #### [facility] ([id number]) [address] [place] [address], [place] [address] UROBILINOGEN LILLIE 0.2 eu/dL Normal <1.1 [facility] Comment on above: Performed By: #### N UM #### [facility] ([id number]) [address] [place] [address] Mayank 01-19-2024 L Specimen: Received: 01/19/24 Status: NIRU Strauss Num: [id number] Spec Type: Surgical Subm Dr: Musa Carrasquillo MD Tissues: A Small Intestine - Biopsy/Polyp (SMALL BOWEL BX) B GASTRIC FOR HP (GASTRIC HP) C Colon Biopsy (RANDOM COLN BX) Procedures: HE/6, Gross/Micro L4/3, H PYLORI, IHC First AB Age/ Patient Sex Location Account Attending Physician Jerardo Zeng 43/F [id number] Musa Carrasquillo MD SPEC NUM: [id number] RECD: 01/19/24 STATUS: NIRU STRAUSS NUM: [id number] PATI: 01/19/24 DR: Musa Carrasquillo MD ENTERED: 01/19/24 [facility] DR: SPEC TYPE: Surgical DEPT: S ORDERED: HE/6, Gross/Micro L4/3, H PYLORI, IHC First AB ORDERED: HE/6, Gross/Micro L4/3, H PYLORI, IHC First AB Pathological Diagnosis A, small bowel biopsy: -Small bowel mucosa with mild nonspecific disruption in 1 fragment otherwise without significant stromal chronic inflammation, or any other specific features of celiac sprue identified B, gastric biopsy: -Antral and oxyntic mucosa with mild nonspecific mucosal disruption in at least 1 fragment, otherwise also showing mild inactive chronic gastritis without any other specific histomorphological changes -H. pylori immunostain with appropriate control is negative for identified Helicobacter organism C, random colon biopsy: -Colonic mucosa without any abnormal stromal chronic inflammation or microscopic colitis identified ---- Specimen: [id number] Received: 01/19/24 Status: NIRU Grulloncarroll Num: [id number] Spec Type: Surgical Subm Dr: Musa Carrasquillo MD Tissues: A Small Intestine - Biopsy/Polyp (SMALL BOWEL BX) B GASTRIC FOR HP (GASTRIC HP) C Colon Biopsy (RANDOM COLN BX) Procedures: HE/6, Gross/Micro L4/3, H PYLORI, IHC First AB ---- Patient: Jerardo Zeng [id number] (Continued) ---- Specimen: [id number] Received: 01/19/24 (Continued) Signed (signature on file) Zak Rodríguez MD 01/21/24 1531 ---- Specimen: [id number] Received: 01/19/24 Status: NIRU Grulloncarroll Num: [id number] Spec Type: Surgical Subm Dr: Musa Carrasquillo MD Tissues: A Small Intestine - Biopsy/Polyp (SMALL BOWEL BX) B GASTRIC FOR HP (GASTRIC HP) C Colon Biopsy (RANDOM COLN BX) Procedures: HE/6, Gross/Micro L4/3, H PYLORI, IHC First AB ---- Patient: Jerardo Zeng [id number] (Continued) ---- Specimen: [id number] Received: 01/19/24-1124 (Continued) Clinical Information Nausea, frequent stools. Rule out celiac, rule out H. pylori and rule out microscopic colitis. Gross Description Received are 3 formalin filled containers each labeled with the patient's name, date of and specific specimen site. A. Further labeled small bowel BX are 2 whaley mucosal tissue fragments each measuring 0.3 x 0.2 x 0.1 cm, entirely submitted in A1. B. Further labeled gastric BX are 2 mucosal whaley tissue fragments measuring 0.4 x 0.2 x 0.1 cm and 0.3 x 0.1 x 0.1 cm, entirely submitted in B1. C. Further labeled random colon BX are multiple whaley mucosal tissue fragments measuring in aggregate 0.8 x 0.2 x 0.1 cm, entirely submitted in C1. [facility] Codes 65234 X.3 46170 ---- ---- Specimen: [id number] Received: 01/19/24 Status: NIRU Strauss Num: [id number] Spec Type: Surgical Subm Dr: Musa Carrasquillo MD Tissues: A Small Intestine - Biopsy/Polyp (SMALL BOWEL BX) B GASTRIC FOR HP (GASTRIC HP) C Colon Biopsy (RANDOM COLN BX) Procedures: HE/6, Gross/Micro L4/3, H PYLORI, IHC First AB ---- Patient: Karri,Jamie [id number] (Continued) ---- Signed (signature on file) Zak Rodríguez MD 01/21/24 1531 Normal [facility] US ABDOMEN LMTDon 12-11-2023 US ABDOMEN LMTD US ABDOMEN LMTD HISTORY: A 43-year-old female with the history of the cholecystectomy. Elevated liver function test. TECHNIQUE: Multiple real-time images of the right upper abdomen are obtained. The color Doppler study is performed. COMPARISON: Comparison is made with the CT scan of the abdomen and pelvis of 02/02/2023. FINDINGS: Liver is normal in size and configuration. There is increase echogenicity liver consistent with fatty infiltration. Liver measures 17 cm in vertical height. There is a small cyst in the anterior aspect of the left lobe of the liver and measures 5 mm There is history of cholecystectomy. The common bile duct is prominent and measures 11 mm in diameter. No intrahepatic biliary ductal dilatation is identified. There is a negative sonographic Delgado's sign. The visualized pancreas appears normal. Right kidney measures 9.1 x 4.4 x 3.4 cm. Right kidney is otherwise unremarkable. There is no evidence of free fluid in the upper abdomen. The color Doppler study reveals normal hepatopedal flow in the main portal vein. IMPRESSION: 1. Hepatic steatosis. There is a 5 mm cyst in the left lobe the liver. 2. Status post cholecystectomy. Prominent common bile duct and measures 11 mm. No intrahepatic biliary ductal dilatation is seen. Negative sonographic Delgado's sign. 3. The visualized liver is unremarkable. 4. Visualized pancreas is unremarkable. 5. Right kidney is normal. 6. There is a normal directional flow in main portal vein. Finalized by Osbaldo Turner MD on 12/11/2023 9:36 PM Normal [facility] Bilirubin Auto test strip (U ) [Mass/Vol]on 12-04-2023 Bilirubin (U) [Mass/Vol] Negative NEGATIVE [facility] Erythrocyte distribution wid th Auto (RBC) [Ratio]on 12-04-2023 Erythrocyte distribution width (RBC) [Ratio] 14.6 % 11.0-15.0 [facility] Estimated glomerular filtrat ion rate (GFR) non- Americanon 12-04-2023 GFR/1.73 sq M.predicted among non-blacks MDRD (S/P/Bld) [Vol rate/Area] 35 mL/min/{1.73_m2} >=60 [facility] Globulin Calc (S) [Mass/Vol] on 12-04-2023 Globulin (S) [Mass/Vol] 3.7 g/dL [facility] Hematocrit Auto (Bld) [Volum e fraction]on 12-04-2023 Hematocrit (Bld) [Volume fraction] 35.6 % 36.0-48.0 [facility] Hemoglobin [Mass/volume] in Bloodon 12-04-2023 Hemoglobin (Bld) [Mass/Vol] 11.1 g/dL 12.0-16.0 [facility] Laboratory - Chemistry and C hemistry - challengeon 12-04-2023 Albumin [Mass/Vol] 4.1 g/dL 3.4-5.0 [facility] ALP [Catalytic activity/Vol] 110 U/L 46-116 [facility] ALT [Catalytic activity/Vol] 84 U/L 14-59 [facility] AST [Catalytic activity/Vol] 106 U/L 15-37 [facility] Bilirubin [Mass/Vol] 1.2 mg/dL 0.2-1.0 [place] Calcium [Mass/Vol] 9.5 mg/dL 8.5-10.1 [facility] Chloride [Moles/Vol] 105 mmol/L 98-107 [place] CO2 [Moles/Vol] 29.1 mmol/L 21.0-32.0 [facility] Creatinine [Mass/Vol] 1.58 mg/dL 0.55-1.02 [facility] GFR/1.73 sq M.predicted MDRD (S/P/Bld) [Vol rate/Area] 43 mL/min/{1.73_m2} >=60 [facility] Glucose [Mass/Vol] 76 mg/dL 74-106 [facility] Magnesium [Mass/Vol] 2.3 mg/dL 1.8-2.4 [place] Potassium [Moles/Vol] 3.6 mmol/L 3.5-5.1 [facility] Protein [Mass/Vol] 7.8 g/dL 6.4-8.2 [facility] Sodium [Moles/Vol] 142 mmol/L 136-145 [facility] Urate [Mass/Vol] 6.0 mg/dL 2.6-6.0 [facility] Urea nitrogen [Mass/Vol] 12.0 mg/dL 7.0-18.0 [facility] Urea nitrogen/Creatinine [Mass ratio] 7.6 mg/mg [facility] Glucose (U) [Mass/Vol] Negative NEGATIVE [facility] Ketones Ql (U) Negative NEGATIVE [facility] pH (U) 5.5 [pH] 5.0-9.0 [facility] Specific gravity (U) [Rel density] 1.025 1.005-1.025 [facility] Urobilinogen Qn (U) 1.0 {Cynthia'U}/dL 0.2-1.0 [facility] Laboratory - Specimen inform ationon 12-04-2023 Appearance (U) CLEAR CLEAR [facility] Color (U) DK YELLOW YELLOW [facility] Laboratory - Urinalysison Leukocyte esterase Test strip Ql (U) LARGE NEGATIVE [facility] Nitrite Ql (U) Negative NEGATIVE [facility] Protein (U) [Mass/Vol] 31.1 mg/dL <=11.9 [facility] Protein Ql (U) Negative NEG/TRACE [facility] Leukocytes [#/volume] correc tim for nucleated erythrocytes in Blood by Automated counon 12-04-2023 WBC corrected for nucl RBC Auto (Bld) [#/Vol] 7.0 10 3/uL 4.0-11.0 [facility] MCH Auto (RBC) [Entitic mass ]on 12-04-2023 MCH (RBC) [Entitic mass] 29.1 pg 26.7-34.0 [facility] MCHC Auto (RBC) [Mass/Vol]on 12-04-2023 MCHC (RBC) [Mass/Vol] 31.2 g/dL 29.9-35.2 [facility] MCV Auto (RBC) [Entitic vol] on 12-04-2023 MCV (RBC) [Entitic vol] 93.4 fL 81.0-99.0 [facility] No Panel Informationon 12-03 25-Hydroxy Vitamin D Total 12.5 ng/mL [facility] Comment on above: <20 ng/mL Vit D defi cient20-<30 ng/mL Vit D cimjzrzpwtis75-686 ng/mL Vit D sufficient>100 ng/mL Potential Toxicity Parathyroid Hormone (Intact) 89 pg/mL 15-65 [facility] Comment on above: Performed at: CB - [facility] [id number] [place], [place] [id number] Director: Rupesh Montez PhD, Phone: [phone] Phosphorus Level 4.6 mg/dL 2.6-4.7 [facility] Urine Random Creatinine 210.78 mg/dL 20.00-300.00 [facility] Platelet mean volume Auto (B ld) [Entitic vol]on 12-04-2023 Platelet mean volume (Bld) [Entitic vol] 10.7 fL 9.5-13.5 [facility] Platelets Auto (Bld) [#/Vol] on 12-04-2023 Platelets (Bld) [#/Vol] 245 10 3/uL 150-450 [facility] RBC Auto (Bld) [#/Vol]on RBC (Bld) [#/Vol] 3.81 10 6/uL 4.20-5.40 [facility] Serum or plasma albumin/glob ulin mass ratioon 12-04-2023 Albumin/Globulin [Mass ratio] 1.1 {ratio} [facility] Serum or plasma anion gap de terminationon 12-04-2023 Anion gap [Moles/Vol] 11.5 mmol/L [facility] Urine hemoglobin detection b y automated test stripon 12-04-2023 Hemoglobin Auto test strip Ql (U) SMALL NEGATIVE [facility] Urine protein/creatinine rat ioon 12-04-2023 Protein/Creatinine (U) [Ratio] 0.15 [facility] FREE T3on 11-13-2023 Free T3 [Mass/Vol] 2.52 pg/mL Normal 2.50-3.90 [facility] Comment on above: Performed By: #### 3 051-0, 11858-7, THYR #### [facility] ([id number]) [address], [address] [place] [address] THYROID PROFILEon 11-13-2023 Free T4 [Mass/Vol] ng/dL Low 0.61-1.60 [facility] Comment on above: Performed By: #### 3 051-0, 28259-0, THYR #### [facility] ([id number]) [address] [place] [address] TSH 115.93 uIU/mL High 0.49-4.67 [facility] Comment on above: Performed By: #### 3 051-0, 03825-3, THYR #### [facility] ([id number]) [address], [address] [place] [address] Vitamin D+Metabolites [Mass/ Vol]on 11-13-2023 VITAMIN D 25 HYD TOT 10.5 ng/mL Low 30-100 [facility] Comment on above: Result Comment: Vitamin D status 25 [place] Vitamin D Deficiency <20 ng/mL Insufficiency 20-29 ng/mL Sufficiency 30-100 ng/mL Toxicity >100 ng/mL NOTE: A pediatric reference range has not been established by the wrist hemmer of this kit. The [place] [employer] recommends a Vitamin D level of = or >20ng/mL in infants and children. Performed By: #### 3 051-0, 22453-6, THYR #### [facility] ([id number]) [address], [address] [place] [address] MAMM SCREENING BILATERAL W C plastics repairer 10-08-2023 MAMM SCREENING BILATERAL W CAD MAMM SCREENING BILATERAL W CAD *ADDENDUM*10/11/2022 and priors Finalized by Yonatan Green MD on 10/08/2023 8:30 AM 1 b MAMM 1 YR Normal [facility] 25(OH)D3 SerPl-mCncon 2023 25-hydroxyvitamin D3 [Mass/Vol] 10.2 ng/mL Low 31.0-80.0 [facility] Comment on above: Order Comment: Speci men Type: BLOOD SPECIMENOrdering Facility: [facility] Address: [address] [place] [address] [place] [address] Result Comment: Clas sification of 25 [place] Vitamin D status: Deficiency/Insufficiency: < or = 30 ng/ml. Sufficiency/Optimal Levels: 31-80 ng/mL Toxicity: > 100 ng/mL. Test performed by chemiluminescent immunoassay. Performed By: #### 1 989-3 ####[facility] [id number] [address] [place] Aldolase SerPl-cCncon 2023 Aldolase [Catalytic activity/Vol] 8.5 mU/mL High 1.5-8.1 [facility] Comment on above: Order Comment: Heraclio mesa Type: BLOOD SPECIMENOrdering Facility: [facility] Address: [address] [place] [address] Result Comment: This test was developed and its performance characteristics determined by [facility]'s [facility] ([facility]). It has not been cleared or approved by the FDA. -[facility] is regulated under CLIA as qualified to perform high-complexity testing. This test is used for clinical purposes. It should not be regarded as investigational or for research. Performed By: #### 1 761-6 ####[facility] [id number] [address] [place] CK SerPl-cCncon 08-19-2023 CK [Catalytic activity/Vol] 749 U/L High 42-196 [facility] Comment on above: Order Comment: Heraclio mesa Type: BLOOD SPECIMENOrdering Facility: [facility] Address: [address] [place] [address] Performed By: #### 2 157-6, 3016-3 ####[facility] [id number] [place] [address] [place] CNOVon 08-19-2023 CNOV Office Visit (NENMMN ) JERARDO ZENG ([id number]) 1980 F Date Time Provider Department 08/19/23 2:00 PM STEFANI CARLOS NENMMN During your visit today, we recorded the following information about you: Pulse Blood pressure Weight Height 88/minute 132/94 93.4 kg 1.702 m Stefani Carlos MD 08/22/2023 9:35 AM Signed [facility] New Patient Visit Note Consultation [...] she says she was told by her seeing eye dog teacher that she has had birthmark cataracts in [...] ml/min (H (more content not included)... Normal [facility] DNA EXTRACTION BLOODon 08-19 CONCENTRATION (NG/UL) 35.71 ng/ul Normal [facility] Comment on above: Order Comment: Speci men Type: BLOOD SPECIMENOrdering Facility: [facility] Address: [address] [place] [address] Performed By: #### N UCBLD ####[facility] [id number] [place] [address] [place] TOTAL YIELD 8.93 ug Normal [facility] Comment on above: Order Comment: Heraclio mesa Type: BLOOD SPECIMENOrdering Facility: [facility] Address: [address] [place] [address] Result Comment: Spec imens will be available for 3 years from date of collection. To order testing on this specimen for [facility] patients, please place an [facility] order for DNA and RNA for Clinical Testing ([id number]). To order for patients outside of the [facility] system, please request DNA and RNA for Clinical Testing, order code [id number]. If additional paperwork is required for testing, please email completed forms to . Performed By: #### N UCBLD ####[facility] [id number] [place] [id number] [place] VOLUME (UL) OF DNA 250 uL Normal [facility] Comment on above: Order Comment: Heraclio mesa Type: BLOOD SPECIMENOrdering Facility: [facility] Address: [address] [place] [address] Performed By: #### N UCBLD ####[facility] [id number] [place] [id number] [place] TSH SerPl-aCncon 08-19-2023 TSH Qn 86.100 m[IU]/L High 0.270-4.200 [facility] Comment on above: Order Comment: Speci men Type: BLOOD SPECIMENOrdering Facility: [facility] Address: [address] [place] [address] Result Comment: If t he patient is , TSH reference range varies by gestational period: First Trimester (weeks 9-12): 0.180-2.990 mIU/L Second Trimester: 0.110-3.980 mIU/L Third Trimester: 0.480-4.710 mIU/L Isidro Esteves et al. A Practical Approach for the Verifications and Determination of Site- and Trimester-Specific Reference Intervals for Thyroid Function tests in . Thyroid, 2019:29:3:412-420. Regan Dorsey et al. 2017 Guidelines of the [place] Thy[employer] Association for the Diagnosis and Management of Thyroid Disease during and the . Thyroid, 2017:27:3:315-389. Performed By: #### 2 157-6, 3016-3 ####[facility] [id number] [facility] [place] [id number] [place] URN MACROSCOPIC NURon 2023 BILIRUBIN LILLIE Negative Normal NEG [facility] Comment on above: Performed By: #### N UM #### [facility] ([id number]) [address] [place] [address] BLOOD/HGB LILLIE Trace Abnormal NEG [facility] Comment on above: Performed By: #### N UM #### [facility] ([id number]) [address] [place] [address] GLUCOSE LILLIE Negative Normal NEG [facility] Comment on above: Performed By: #### N UM #### [facility] ([id number]) [address] [place] [address] KETONES LILLIE Negative Normal NEG [facility] Comment on above: Performed By: #### N UM #### [facility] ([id number]) [address] [place] [address] LEUKOCYTE ESTERASE LILLIE Negative Normal NEG [facility] Comment on above: Performed By: #### N UM #### [facility] ([id number]) [address] [place] [address] NITRITE LILLIE Negative Normal NEG [facility] Comment on above: Performed By: #### N UM #### [facility] ([id number]) [address] [place] [address] PH LILLIE 6.5 Normal 5.0-8.5 [facility] Comment on above: Performed By: #### N UM #### [facility] ([id number]) [address] [place] [address] PROTEIN LILLIE Negative Normal NEG [facility] Comment on above: Performed By: #### N UM #### [facility] ([id number]) [address] [place] [address] SPECIFIC GRAVITY LILLIE 1.025 Normal 1.003-1.035 [facility] Comment on above: Performed By: #### N UM #### [facility] ([id number]) [address] [place] [address] UROBILINOGEN LILLIE 0.2 eu/dL Normal <1.1 [facility] Comment on above: Performed By: #### N UM #### [facility] ([id number]) [address] [place] [address] US renal BIon 07-09-2023 US renal BI [facility] [place] [address] Ultrasound Report Signed Patient: Jerardo Zeng MR#: [id number] 4 : 1980 Acct:[id number] Age/Sex: 42 / F ADM Date: 07/09/23 Loc: Room: Type: [facility] CLI Attending Dr: Alejandra Card MD Ordering Provider: [...] Tyler Jr., D.O.07/09/2023 10:07 AM Dictation Location: [place] [address] Tech: David Delgado Transcribed By: ROHIT 07/09/23 1007 Dictated By: Murray Tyler Jr, DO 07/09/23 1007 Signed By: 07/09/23 1007 Normal [facility] Fernando 06-25-2023 CNPN Telephone (NIQ) JERARDO ZENG ([id number]) 1980 F Date Time Provider Department 06/25/23 NEUROLOGY PROVIDER NIQ During your visit today, we recorded the [...] Reason for Visit: Received Outside Medical Records [357] Cmt: External EMG AND lab reports Prescriptions [...] Encounter Status:Closed by ARLENE MENDOZA on 06/25/23 [facility] 06-23-2023 CNPN Telephone (NIQ) JERARDO ZENG ([id number]) 1980 F Date Time Provider Department 06/23/23 NEUROLOGY PROVIDER NIQ During your visit today, we recorded the [...] Reason for Visit: Received Outside Medical Records [0117] Cmt: External referral to [facility] Prescriptions as of 06/23/2023 - levothyroxine (SYNTHROID) [...] Encounter Status:Closed by ARLENE MENDOZA on 06/23/23 [facility] CNSWon 03-27-2023 [facility] Social Work (HEMASA) JERARDO ZENG ([id number]) 1980 F Date Time Provider Department 03/27/23 HEATHER ROSENBAUM During your visit today, we recorded the following information about you: Heather Rosenbaum LSW 03/27/2023 1:22 PM Signed Patient Declined Social Work Assessment Patient appears on the [employer] SW Report for a PHQ-9 score of 21 on 03/24/23. Patient declines the need for SW intervention. SW will remain available and will follow up as appropriate. LINDA Holman-Radha Allergies As of Date: 03/27/2023 Noted Allergy [...] Encounter Status:Closed by HEATHER ROSENBAUM on 03/27/23 [facility] Fernando 03-26-2023 CNPN Telephone (NCCAP) JERARDO ZENG ([id number]) 1980 F Date Time Provider Department 03/26/23 [facility] During your visit today, we recorded the following information about you: Eli Childress 03/26/2023 12:44 PM Signed Jeannette can you please send to Endocrin in [place] thank you! PATIENT NAME: Jerardo Zeng PATIENT [...] for her levothyroxine. Orders pending your approval. BERNARD Rodriguez Jennifer L 03/26/2023 3:00 PM Signed Records faxed to Dr. Yanes. Maci Bradford 04/02/2023 11:[address] Yanes office spoke with Khalida. She states they have not received this referral and have asked us to please re-fax it. Jeannette: Please re-fax this referral. Thank you. Maggie Stinson 04/02/2023 12:10 PM Signed Records re-faxed to Dr. Yanes. Maci Bradford 04/08/2023 9:[address] Yanes office spoke with Oneida. She states they have received this referral and they will be calling patient soon to get scheduled. Maci Hammond, Maci 04/15/2023 9:45 AM Signed Called left message for Dr Yanes office to call us back with status of this referral. Maci Hammond, Maci 04/15/2023 4:[address] Lexx from Dr Yanes office called back. She is currently working on calling and getting this patient scheduled. Maci Hammond, Maci 04/20/2023 8:[address] aYnes office left message for their office to call us back with status of this referral. Abimbola Ngoen 04/20/2023 11:[address] Yanes office called back patient is scheduled to see Dr Yanes on 05/08 @ 10:10. Maci Hammond Allergies As of Date: 03/26/2023 Noted Allergy Reaction PENICILLINS 07/08/2022 2 - Rash 7 - Swelling 12 - Shortness of Breath Date Reviewed: 02/05/2023 Reviewed by: Denise Vang LPN - Fully Assessed Reason for Visit: Appointment Confirmation [3502] Order(s):levothyroxine (SYNTHROID) 50 mcg tabletTake 1 tablet [...] Status:Closed by Navya PHELAN on 03/26/23 Normal [facility] T3 SerPl-mCncon 03-19-2023 T3 [Mass/Vol] 27 ng/dL Low 79-165 [facility] [facility] Comment on above: Order Comment: Specmallorie men Type: BLOOD SPECIMENOrdering Facility: [facility] Address: [address] [place] [address] Performed By: #### 3 016-3, 3053-6, 3026-2 ####[facility] LABIA [id number] [place] [address] [place] T4 SerPl-mCncon 03-19-2023 T4 [Mass/Vol] 1.5 ug/dL Low 5.5-10.2 [facility] Comment on above: Order Comment: Heraclio mesa Type: BLOOD SPECIMENOrdering Facility: [facility] Address: [address] [place], [place] [id number] Performed By: #### 3 016-3, 3053-6, 3026-2 ####[facility] LABIA [id number] [place] [id number] [place] TSH SerPl-aCncon 03-19-2023 TSH Qn 76.500 m[IU]/L High 0.270-4.200 [facility] Comment on above: Order Comment: Heraclio mesa Type: BLOOD SPECIMENOrdering Facility: [facility] Address: [address] [place], [place] [id number] Result Comment: If t he patient is , TSH reference range varies by gestational period: First Trimester (weeks 9-12): 0.180-2.990 mIU/L Second Trimester: 0.110-3.980 mIU/L Third Trimester: 0.480-4.710 mIU/L Isidro Esteves et al. A Practical Approach for the Verifications and Determination of Site- and Trimester-Specific Reference Intervals for Thyroid Function tests in . Thyroid, 2019:29:3:412-420. Regan E, et al. 2017 Guidelines of the [place] Thy[employer] Association for the Diagnosis and Management of Thyroid Disease during and the . Thyroid, 2017:27:3:315-389. Performed By: #### 3 016-3, 3053-6, 3026-2 ####[facility] LABCLIA [id number] [address] [facility] CNPElvia 02-09-2023 CNPN Telephone (HEMASA) JERARDO ZENG ([id number]) 1980 F Date Time Provider Department 02/09/23 [...] and will follow up as appropriate. LINDA Holman-Radha Allergies As of Date: 02/09/2023 Noted Allergy Reaction PENICILLINS 07/08/2022 2 - Rash 7 - Swelling 12 - Shortness of Breath Date Reviewed: 02/05/2023 Reviewed by: Denise Vang LPN - Fully Assessed Reason for Visit: Social Work Services [507] Cmt: PRO Taussig SW Report follow up. Prescriptions as of [...] Encounter Status:Closed by HEATHER ROSENBAUM on 02/09/23 [facility] CNOVon 02-05-2023 CNOV Office Visit (RADTSA ) JERARDO ZENG ([id number]) 1980 F Date Time Provider Department 02/05/23 [...] cancer, papillary carcinoma follicular variant, stage I [id number]. Status post thyroidectomy on 05/08/2022. Status post [...] cancer, papillary carcinoma follicular variant, stage I [id number]. Status post thyroidectomy on 05/08/2022. Thyroglobulin undetectable. However still needs increased thyroid replacement dose. Recommend to 50 mcg up from 200, recheck labs in 6 weeks. Signed by: Navya Phelan MD cc: Nevin Lara [address] [place] [address] Elena Rey MD [address] [facility] [address] Allergies As of Date: 02/05/2023 Noted Allergy [...] tabletRfl: 2 TSH BLD [SQTSH] Order #: [id number] FUTURE T3 BLD [SQT3] Order #: [id number] FUTURE T4/THYROXINE BLOOD [SQT4] Order #: [id number] FUTURE Prescriptions as of 02/05/2023 - levothyroxine (SYNTHROID) 50 mcg tablet Take 1 tablet by mouth once daily. Take along with 200 mcg (more content not included)... Normal [facility] T4 SerPl-mCncon 01-29-2023 T4 [Mass/Vol] 2.7 ug/dL Low 5.5-10.2 [facility] Comment on above: Order Comment: Heraclio mesa Type: BLOOD SPECIMENOrdering Facility: [facility] Address: [address] [place] [address] Performed By: #### 3 026-2, 3016-3 ####[facility] LABCLIA [id number] [place] [address] [place] TSH SerPl-aCncon 01-29-2023 TSH Qn 68.100 m[IU]/L High 0.270-4.200 [facility] Comment on above: Order Comment: Heraclio mesa Type: BLOOD SPECIMENOrdering Facility: [facility] Address: [address] [place] [address] Result Comment: If t he patient is , TSH reference range varies by gestational period: First Trimester (weeks 9-12): 0.180-2.990 mIU/L Second Trimester: 0.110-3.980 mIU/L Third Trimester: 0.480-4.710 mIU/L Isidro Esteves et al. A Practical Approach for the Verifications and Determination of Site- and Trimester-Specific Reference Intervals for Thyroid Function tests in . Thyroid, 2019:29:3:412-420. Regan Dorsey et al. 2017 Guidelines of the [place] Thy[employer] Association for the Diagnosis and Management of Thyroid Disease during and the . Thyroid, 2017:27:3:315-389. Performed By: #### 3 026-2, 6-3 ####[facility] LABIA [id number] [place] [address] [place] Thyroglobulin and Thyrogobul in Ab panelon 01-29-2023 Thyroglobulin Ab Qn [IU]/mL Normal <4.0 [facility] Comment on above: Order Comment: Heraclio mesa Type: BLOOD SPECIMENOrdering Facility: [facility] Address: [address] [place] [address] Result Comment: The Thyroglobulin Antibody test was performed using the Unpaktel DXI paramagnetic particle chemiluminescent immunoassay method. Results obtained with different assay methods or kits cannot be used interchangeably. Performed By: #### 5 7780-9 ####[facility] LABCLIA [id number] [place] [address] [place] THYROGLOBULIN, SERUM <0.1 Low 1.6-50.0 [facility] Comment on above: Order Comment: Speci men Type: BLOOD SPECIMENOrdering Facility: [facility] Address: [address] [place] [address] Result Comment: The Thyroglobulin test was performed using the [employer] [place] Un[employer]el DXI paramagnetic particle chemiluminescent immunoassay method. Results obtained with different assay methods or kits cannot be used interchangeably. Performed By: #### 5 7780-9 ####[facility] LABCLIA [id number] [address] OF [place] Fernando 12-26-2022 DEVYN Telephone (STACEY) JERARDO ZENG ([id number]) 1980 F Date Time Provider Department 12/26/22 INCK AHMADI During your visit today, we recorded the following information about you: LINDA Candelario 12/26/2022 9:29 AM Addendum SOCIAL WORK DISTRESS ASSESSMENT Referral made due to: depression based on PHQ-9 questionnaire Contact was made: By telephone call with patient Pt appears on [facility] Social Work Report with a PHQ-9 score of [...] No Patient Declined Social Work Assessment LINDA Candelario-Radha Allergies As of Date: 12/26/2022 Noted Allergy Reaction PENICILLINS 07/08/2022 2 - Rash 7 - Swelling 12 - Shortness of Breath Date Reviewed: 08/21/2022 Reviewed by: Fiorella Pettit, REYNA - Fully Assessed Reason for Visit: Social Work Services [507] Cmt: Pt appears on [facility] Social Work Report Prescriptions as of 12/26/2022 - [...] Encounter Status:Closed by NICK AHMADI on 12/26/22 [facility] CNOVon 12-25-2022 CNOV Office Visit (RADTSA ) JERARDO ZENG ([id number]) 1980 F Date Time Provider Department 12/25/22 11:45 AM Navya PHELAN During your visit today, we recorded the following information about you: Temperature Pulse Respiration Blood pressure 97.6 degrees 60/minute 18/minute 153/108 Weight 94.3 kg G Larry Phelan MD 12/30/2022 2:55 PM Signed Radiation Oncology -follow up note PATIENT NAME: Jerardo Zeng PATIENT : 1980 REQUESTING PROVIDER: Dr. Rey Primary Site: Thyroid Date of Diagnosis: May 08, 2022 Clinical Stage: T2 N0 M0 Pathologic Stage: T2 Nx M0 DIAGNOSIS: Thyroid cancer, papillary carcinoma follicular variant, stage I [id number]. Status post thyroidectomy on 05/08/2022. Status post [...] cancer, papillary carcinoma follicular variant, stage I [id number]. Status post thyroidectomy on 05/08/2022. Doing well after I-131 ablative treatment. She still underdosed with her Synthroid. Recommend increasing her dose to 200 mcg daily and rechecking labs in 4 to 6 weeks. Signed by: Navya Phelan MD cc: Nevin Lara [phone] [place] [address] Elena Rey MD [address] [facility] [address] Allergies As of Date: 12/25/2022 Noted Allergy Reaction PENICILLINS 07/08/2022 2 - Rash 7 - Swelling 12 - Shortness of Breath Date Reviewed: 08/21/2022 Reviewed by: Fiorella Pettit RN - (more content not included)... Normal [facility] T4 SerPl-mCncon 12-04-2022 T4 [Mass/Vol] 2.5 ug/dL Low 5.5-10.2 [facility] Comment on above: Order Comment: Specmallorie mesa Type: BLOOD SPECIMENOrdering Facility: [facility] Address: [address] [place], [place] [id number] Performed By: #### 3 026-2, 3016-3 ####[facility] LABCLIA [id number] [place] [address] [place] TSH SerPl-aCncon 12-04-2022 TSH Qn 74.400 m[IU]/L High 0.270-4.200 [facility] Comment on above: Order Comment: Heraclio mesa Type: BLOOD SPECIMENOrdering Facility: [facility] Address: [address] [place], [place] [id number] Result Comment: If t he patient is , TSH reference range varies by gestational period: First Trimester (weeks 9-12): 0.180-2.990 mIU/L Second Trimester: 0.110-3.980 mIU/L Third Trimester: 0.480-4.710 mIU/L Isidro Esteves et al. A Practical Approach for the Verifications and Determination of Site- and Trimester-Specific Reference Intervals for Thyroid Function tests in . Thyroid, 2019:29:3:412-420. Regan Dorsey, et al. 2017 Guidelines of the [place] Thy[employer] Association for the Diagnosis and Management of Thyroid Disease during and the . Thyroid, 2017:27:3:315-389. Performed By: #### 3 026-2, 3016-3 ####[facility] LABCLIA [id number] [facility] [id number] [place] [address] [place] T4on 10-20-2022 T4 [Mass/Vol] 1.40 ug/dL Critically low 4.80-13.90 [facility] Comment on above: Performed By: #### T 4, TSH #### [facility] [address] [place] [address] [address] Maeve Rodríguez TSHon 10-20-2022 TSH 100.298 uIU/mL Critically high 0.358-3.740 [facility] Comment on above: Performed By: #### T 4, TSH #### [facility] [address] [place] [address] [address] Maeve Rodríguez Thyroglobulin and Thyrogobul in Ab panelon 07-14-2022 Thyroglobulin [Mass/Vol] 7.2 ng/mL 1.6 - 59.9 ng/mL [facility] Thyroglobulin Ab Qn 1.2 [IU]/mL <14.4 IU/mL [facility] Thyroglobulin Ab Qn <4.0 IU/mL [facility] Thyroglobulin, Serum 5.1 ng/mL 1.6 - 5 0.0 ng/mL [facility] Operative Reporton 2 Operative Report SURGERY DATE: 05/08/2022 SURGEON: Elena [...] brought to the Operative Room Suite at [facility] at which time, general anesthesia was administered [...] was i (more content not included)... Normal [facility] Comment on above: Result Comment: Elec tronically Signed By: Troy Soto DO\.br\Date and Time Signed: 05/23/22 17:45 EDT Coding Summary.on 05-21-2022 Coding Summary. CD:[id number] Gh 0bWw+PGhlYWQ+AM8HSIGqW 11wfOTlpK5FV1mOGU0JLKE XYITZUJ8FHN4dqBV3XQynU 2VybiAv EoqlbDUmJY48XLq1MXC4hT gjEFfmtF8ozDAoR3h3XcMs MV86tQ38YVlhTMKiFjH3Bk ZpbjsgbWFy B6piBcHiwXKbBug+PHRhYm xlIHdpZHRoPScxMDAlJyBz gWbvNC2zWq9lOEPzRYNqoE xhcHNlOiBj j0seJSKwNLmiQZ3uoNuiA2 IcjXH6DWNax5b5Yp37wGF+ OVCdIED1fYgwQSqfx152Le Kye4llLYY6 xXYbSGooAAQ2M47zs7Q0XK TiDUEhRSY5cLE7gH4jjOgh twrkD0RcrCKlHlP2RNQ8bJ CorO0kcJce bkxybI1wZzk+O98GQM0HKJ DWIS8KNyt5V2BdPvtcaIF+ RA66KGOuUE94gGXzdPEho8 wnaBd3VnJk JOFzUYH5lVctCCjfq2WlLR CvN36adICac0V3LOHfhPmq cDSnBcMaqSF5fX2vVQmumz dvl6hchpmz Fsbbc0lppq80mF15J81uII siFEFvDMX9XOZqNLVnwIya ca9cwL9tGz3+RZwam0upp5 fxpLh4HpAb LBMebcOzxKmuUTY6r8YwSl 72D0TckLmxe6EdIsq0pu93 yHFxa8B4qSO3QElwQGRuhT 7gSWemOaY3 FADhQwJubP16sRPnVMcsJr 8ptHxddVefNV4aOUZzzdua AYOszY7kKAPflORooLovAX 4wNTBpbjtm w686DdJnINT1OWCllRFcW0 IxkO4jVhBfRZKsYCDsT5Rf iLHdINkgN608ABfzXsF4EG YlotZpA5Ot FLPhoGfnUgH2u0E3Tt6Ko5 IckxrkROK1JCjzSCQdIuC1 CiZfRvS9A7OgHwu3ZIEuvB urYW0gO5Kz XVZbsvnhtvmpfAP3LHVoAP CwwO10rFAlXGxyMa0xt2U2 v862LKScBVKhkB00Gc2loU ogMTBwdCBU zA8spvhhl5euczafTtTkKW DmBWv8YSv4STFseShtKyMh BPK4TcX2YNN5nWDeyH1jkF rnkbijpD8w Oyc+P90qpQ8uMVO9RGP0qv xyZIEtasNjXY72TM64T4Wg PjwvdGFibGU+PGRpdiBzdH avMZ9nAuKi w5xhg6ZnOCdkW0YxHAFgKN bfDce5FKBmQQD0hPG5tC0p HCUvMPghd2P2zQM2B1Poqq Wlfi7sb0ev OOXmUKtlB01bdTPck3I2AF MovKT9MHGxmKuqUhJkdF65 Oyc+IMBmrEwik5BsDhfvy4 vyk0kuyVq8 HwJyMIOalwEjiDvyTHH1n4 EaPp24X22oGEmnPKXlDGKv YAPdPDWhmCyysv5fpK9uBz 8+PGNvbCB3 kOT3fJ1nMLXlXgF7MTwzO7 08HxXmrAOtBsvpg6oio1ca tYt2LhGyZPEggbLevUqjKQ M7x2OnEq38 J41eIBonTDMnTARpPBLvWD DunJkwns3hhG4xCm8+PC9j o0asdd55zQ87fYJ+PHRkIH J4xAalGNfv KROekX1dEZgsAmJ8ICAeQf DoyX21dUPhWUnfFg2viLxr hZgdNQ3jZBRkmanpq062Cx Ldw3xrCQSn mIKxVBkqYKA5E47pz3Z2HN YnJAZzREX6jJF9nQ0fsUwc bjogbGVmdDsgdmVydGljYW dkFGdzX791 IHRvcDsnPlBhdGllbnQgTm VgNBf4L9FuCkp4GTKriKfk XX7qkJZjSLxiIu6nrWezpX axYW4rMJEt cjiml465YbPaz9pnLHZveR VpZZgtHAC8T31rl9R6JFWw IOZsVGU6dQM7yC9diSgecl ogbGVmdDsg eyKvoQfrBQloJBxyT256XR RvcDsnPkJpcnRoIERhdGU6 JJ90MU18cPVcz1P7mGW5R4 BhZGRpbmct aiygmJR9BQFkZRCjkH85Xr 2ebLguGs3aMDKzESH4UIEe xOMkY3BxxC4kTtLcDSLqKQ YpZ8FvjILw KEexI863QYkyTuQ0YMDlyr GeA6IhCJPqcJthXyP6t3U3 Da0WJ6L5SO02NH09iBTzg5 N8vRB5C9Fz TPPjfufqyztfhED2YHDdSQ ItjY52Bk6wnUsiJt8bXJHb TWY7YPAjdYViE5EyiW3hGe AjMDAwMDAw J6JvjOIeLEaaQ344CVsaQv V9TBSjeiEuP5EkRPBzgKty JzV8l9O4Oh4IMQw9HP77GV 80nMLii8D5 bJN0I9SdXKScrylpwafjdJ V4HGZmNTFwpV70Fb8rhJxb Mu7nXIYcATI2RIMbbGZaX1 MkrR6hGlRe NLJsZEBjK6TjsRGxPBvqS5 48SUmzSwS3VNKusbGoE4Pw AMXcdHauBnE9b8S9Ur2LVQ VpPF70YCG5 cAZ3NW87EB26Y4AiZwxjdE FibGU+PHRhYmxlIHdpZHRo QUkkQGCvBgWbePrdAN7yHm 9yZGVyLWNv eAsxiNHoBzTvl3tiZSRrEI rkPH2yhGwsB0ZwrLD0ABXw a1c9Tc88K18iF9YjoHE+PG TxySF8zDM6 oT8vHvDjUiC7MGznL670Eb MtaXAaJnkvr8ube6grtMe3 UiV6SNPbgkAinUmyCAW4g1 JpAg96N63q IHdpZHRoPSIxNSUiIHZhbG lsev9atT1vFt3+PGNvbCB3 dHP1eH0tPwWhTyJ3YZxoJ9 49InRvcCIv Ykzfy3qxa8zaoUh0IfVsHF LzenYrwPeoZIM4x2UjLm19 Y6KkyUcyo3HtXgw3gf53lC Hku8D8qNG3 I2LzHXRfbhkspCAijQekIY 3vVBExucmxKRLooE0rDLMc H2x7PeWaWdN8JTsqV2Jobj M7QYTafYUx CDcpWQO2E49sa0S3ROXsID CiJJK4pCW0dD9xqTbbtyoj bGVmdDsgdmVydGljYWwtYW cqP319ARHk xFojDANvkZ9cJSKegUKzoS xmPB2pBBKabkmhYmsEU0yO KiWsEXfZFCsKTO67EY67nU Oct0G2mQA9 E4ZgSMEbuuvfaewqkCF3QX NkTCMueV49bZUfBBeaZc3o g4G3h931NPPuAIEfvC33Ki 9udDogMTBw hJSWsY0xbhlnw6epknpsZn KmGYLoYJm8GLg9IHBndClh DqWiGAI2FxG4IDJ8dFTmsZ 1hbGlnbjog hH3tMno+GFIkFZnzFHq6YY wvdGQ+VZCxTXE5zUgoHQnz RGUdxF9oERJbF3a2BeGjEr H6AXsvS5Ju OYXrrljoOk19kS5kPfWoJb N8LEfzC1MhqiY9SUFagZQc KHmmILT3L02xx7J4NIMyZP ElDKA9yFR0 uW5wpTinlwfnxBWbnKjfib YiiRabXNhbFInsX059MKTf eBbnQtXqRRydXDSdHJ21EB 27bTPrt7K1 eRU5R9MhSJCykdsufnjeoF O0ZZGbZRXmzG53wXBrKJty Ga5he0U2s843QLIwTAKhiU 64Xa4xbBox VEDxrVMIdF8ftmeoc4muqk kcSbLfPROrZWm3YTs8MDXn hVkqFjWjORN4MnT6JNA7wG UihF7imZqc zycmqF2sFil+RmVtYWxlPC 66NT09uWPki2Q8rOR7Y2Bo SYAmgdjisraqkFJ8EVQlXI LxpC81rLPf XGxgIa6ir1D2n316TMIyJV YqbW82Hf5bzBfzEIUdwETL dA7brphpb2sbkajhPvDdPX AbUYo3QHv0 WGUqrMkxVpPtWBR3XgF5DZ F1xEZekT4qxCiztxgtsU5t Oyc+KD2fsJgepM5faD6XFN 1lIERheSBT wDMfJWS5ZK11DL70R2ChEe wvdGFibGU+PHRhYmxlIHdp ZHRoPScxMDAlJyBzdHlsZT 0cVq3nPLQl PXFlgVuswEXwRbEec5xlXB HmQIoqTO5azViuR3UprFT8 DAIzy2r1Zz35V74qG5LcvM A+PGNvbCB3 qWK9zM8iMhNhGbN7JBqfE0 83SxAtbWOmUnlkl9tvx0ml hGn4IgMiGPIfwdYpmVdeOQ Z1s8OtXw10 Y49rXDvrTCBsTDXvHFHuMH RohQnghf2ypG2aOh6+PGNv mOW2fIW9yW2nGrYdUpB6VY tbZ022CaWs kCHpBwboM19fP9CtyWF+PH WoCmj3KVMimQlkSJ6cjSEb JZncSp7vZZH0TuGxJvZaCC hvU6FvZYOz zxxhlvjudOP5VQZqCQBwjU 34Ja4csIexPy8mVDWwEBB3 WSPbkGDrP1KfjG2qPnSjSW LzZWTvL6Xm wCIdAVihR887KXmhEmZ3KQ CngoHwG0ZrKIVcqSiyQmR6 v5V3Xk8GkRoyuERcHS4mOs NyYWs0Y0Op Lou0QXLbsRifUV5lxULbWU hjYx7xwYqinOymOP8lIOTw jrgrm426RyCfp0yfSAClqA QgVGltZXM7 O98hc3N6HDZqLXIpPWN9oY H5tG2bqYpsyzmmmYRzrYbz tcGjzUvxHAunFGsiB219UY RvcDsnPkZJ Glk6U1EhJav7WWHmnJegYY 3qxUAyVOjnDk9vbTxcqCef DH1kAHUchmlpp892GuPvt6 xkIDEwcHQg LKdfIQP8P45ck0N4SDTaWE MxTVS1cEL7qJ9bgDdofskv bGVmdDsgdmVydGljYWwtYW xbP379NKYi cWnkUn0CMcz4W8CkOmt9SL JueEycLF2sfWBdJTavYh8f dOfzqMwuAK4cCMQuctzlg5 18OjHle8hg CHZovGGmUIrjTMT4G15km4 F8TNQgBNEsFGX7qLI6tM3e bGlnbjogbGVmdDsgdmVydG ljYWwtYWxp A277JLDzdHbbKoFkbTXuHp wvdGQ+LH39az17I7FnDogk Kmz8TQUaQRE7oKI5rZ8tEU HdJQqdl7X6 bGU9 (more content not included)... Normal [facility] Pathology Reporton 2 Pathology Report [id number]. 00CD:127 Normal [facility] Operative Reporton 2 Operative Report SURGERY DATE: 05/08/2022 CO-SURGEON: Troy Soto D.O. WELT BUTTER HAND: Caron Singh CST PREOPERATIVE DIAGNOSIS: Bilateral thyroidectomy [...] placed throug (more content not included)... Normal [facility] Comment on above: Result Comment: Elec tronically Signed By: Elena Rey MD\.br\Date and Time Signed: 05/15/22 08:24 EDT IntraOperative Documentson 1 IntraOperative Documents [id number]. 00CD:127 Normal [facility] Main OR Intraoperative Recor don 05-13-2022 Main OR Intraoperative Record IntraOp Document Type FT Summary Primary Physician: Elena Rey MD Finalized Date/Time: 05/13/22 14:29:16 Pt. Name: MILKA ZENGIE /Sex: 1980 Female Med Rec #: [id number] Physician: Elena Rey MD Financial #: [id number] Pt. Type: A Room/Bed: [place] [address] Admit/Disch: 05/08/22 09:55:48 - 05/09/22 10:25:00 Institution: Case Times FT Entry 1 Patient Times In Room 05/08/22 12:35:00 Out Room 05/08/22 15:46:00 Procedure Times Start 05/08/22 13:13:00 Stop 05/08/22 15:31:00 Anesthesia Times Start 05/08/22 12:35:00 Stop 05/08/22 15:46:00 Last Modified By: Dominick ORELLANA, Lexx sEteves 05/08/22 15:46:07 General Comments: 05/13/22 Chart opened to review and send charges [facility] CSFA Case Attendance FT Entry 1 Entry 2 Entry 3 Case Attendee Josue ARANDA, Elena Leroy MD, CST, Macie C Role Performed PROPERTY MANAGEMENT ASSISTANT Surgeon - Primary CLEANER/SA Time In 05/08/22 12:35:00 05/08/22 12:35:00 05/08/22 12:35:00 Time Out 05/08/22 15:44:00 05/08/22 15:20:00 05/08/22 15:44:00 Procedure THYROIDECTOMY(.), NECK THYROIDECTOMY(.), NECK THYROIDECTOMY(.), NECK MASS EXCISION AND MASS EXCISION AND MASS EXCISION AND EXPLORATION(.) EXPLORATION(.) EXPLORATION(.) Comments Dr. Fish supervising. Out for lunch [phone] Last Modified By: Pankaj CLEANER, Purvi Tan RN, Lexx Lira CST, Purvi Dorsey 05/13/22 14:24:39 05/08/22 15:44:25 05/13/22 14:24:39 Entry 4 Entry 5 Entry 6 Case Attendee Dominick ORELLANA, Lexx Canchola RN, Yariel Schofield Role Performed Retail Leasing Agent - Primary Retail Leasing Agent - Primary Retail Leasing Agent - Primary Time In 05/08/22 12:35:00 05/08/22 12:35:00 05/08/22 12:35:00 Time Out 05/08/22 15:44:00 05/08/22 15:01:00 05/08/22 13:30:00 Procedure THYROIDECTOMY(.), NECK THYROIDECTOMY(.), NECK THYROIDECTOMY(.), NECK MASS EXCISION AND MASS EXCISION AND MASS EXCISION AND EXPLORATION(.) EXPLORATION(.) EXPLORATION(.) Comments Preceptor. Out for Orientation. Out for Orientation. Out for lunch [phone]. Out of lunch [id number] lunch [phone]. Out of room for training room for training [id number]. [id number]. Last Modified By: Dominick RN, Lexx Tan RN, Lexx Tan RN, Lexx Esteves 05/08/22 15:44:25 05/08/22 15:44:25 05/08/22 15:44:25 Entry 7 Entry 8 Entry 9 Case Attendee Genny ORELLANA, Addis Duque CST, Benjamin Role Performed Retail Leasing Agent - Relief Retail Leasing Agent - Relief Scrub - Primary Time In 05/08/22 12:45:00 05/08/22 12:45:00 05/08/22 12:35:00 Time Out 05/08/22 15:01:00 05/08/22 13:30:00 05/08/22 13:13:00 Procedure THYROIDECTOMY(.), NECK THYROIDECTOMY(.), NECK THYROIDECTOMY(.), NECK MASS EXCISION AND MASS EXCISION AND MASS EXCISION AND EXPLORATION(.) EXPLORATION(.) EXPLORATION(.) Comments Preceptor Orientation. Out of Preceptor room for training 1330-end of case. Last Modified By: Dominick RN, Lexx Tan RN, Lexx Li RN 05/08/22 15:44:25 05/08/22 15:44:25 05/08/22 15:44:25 Entry 10 Entry 11 Entry 12 Case Attendee Rani KAUFFMAN, Karely Humphries RN, Troy Perez DO Role Performed Scrub - Primary Retail Leasing Agent - Relief Surgeon - Assist 1 Time In 05/08/22 12:35:00 05/08/22 12:45:00 05/08/22 13:05:00 Time Out 05/08/22 15:44:00 05/08/22 15:01:00 05/08/22 14:55:00 Procedure THYROIDECTOMY(.), NECK THYROIDECTOMY(.), NECK THYROIDECTOMY(.), NECK MASS EXCISION AND MASS EXCISION AND MASS EXCISION AND EXPLORATION(.) EXPLORATION(.) EXPLORATION(.) Comments Orientation Orientation Last Modified By: Dominick ORELLANA, Lexx Tan RN, Lexx Tan RNLexx 05/08/22 15:44:25 05/08/22 15:44:25 05/08/22 15:44:25 Entry 13 Case Attendee Winter Joel Role Performed Anesthesiologist Cafe Team Member Time In 05/08/22 13:17:00 Time Out 05/08/22 13:55:00 Procedure THYROIDECTOMY(.), NECK MASS EXCISION AND EXPLORATION(.) Comments Dr. Fish supervising Last Modified By: Lexx Tan RN 05/08/22 15:44:25 General Comments: Bean Brown, Nuvasive Rep, in attendance 1235-end of case. REYNA Vickersquality assurance test program manager Protocols FT Pre-Care Text: Implements protective measures [...] Robi Salas CRNA, Given Participants Krissy ANN, Elena Licea, Francisco KAUFFMAN, Genny Chandler RN, Lisa Guidry K (more content not included)... Normal [facility] CHEMISTRYOrdered By: SYSTEM SYSTEM on 05-09-2022 Calcium [Mass/Vol] 9.0 mg/dL Normal 8.9 - 11. 1 mg/dL [facility] Remisol Calciumon 05-09-2022 Calcium [Mass/Vol] 9.0 mg/dL Normal 8.9-11.1 [facility] Comment on above: Performed By: #### 2 [id number] ####[facility] [address] [place] [address] Consent for Anesthesiaon Consent for Anesthesia [id number] 0CD:127 Normal [facility] Discharge Instructionson Discharge Instructions [id number] 00CD:127 Normal [facility] Inpatient Clinical Summaryon 05-09-2022 Inpatient Clinical Summary [place] [id number] Clinical Summary Person Information: Name: JERARDO ZENG Age: 41 Years : 1980 Sex: Female PCP: NEVIN LARA CNP Marital Status: Single Race: White Ethnicity: Non- or Language: Mongolian Visit Id: Visit Reason: THYROID SURGERY Speciality: Acuity: Enc Type: Observation Med Service: Medical Arrival: 05/08/2022 09:55:48 Discharge: Dispo Type: Address: [facility] [address] [facility] [id number] Provider Notes: Diagnosis: Mass of thyroid gland; [...] Address: When: Elena Rey [address], [address] [place] [address] Business (1) In 1 week 05/16/2022 With: Address: When: NEVIN LARA [address], FAX [phone] [place], [place] [address] Business (1) Patient Education Information: Normal [facility] Inpatient Patient Summaryon 05-09-2022 Inpatient Patient [...] In 1 week 05/16/2022 EDT Where: [address], [address] [place] [address]- Business (1) Follow Up with NEVIN LARA When: In 0 days Where: [address] [phone] [place], [place] [address]- Business (1) Medications What How Much When [...] including vitamins, herbs, eye drops, creams, and fycw-szb-bagwzbu medicines. ? Any problems you or family [...] your h (more content not included)... Normal [facility] Inpatient Patient Summary [place] [id number] Patient Discharge Instructions PERSON INFORMATION Name: JERARDO ZENG Date of : 1980 Current Date: 05/09/2022 07:30:42 PHYSICIANS Admitting Physician: Elena Rey MD Primary Care Physician: NEVIN LARA CNP PCP Comment: Discharge Diagnosis: Mass of thyroid gland; Thyromegaly Condition at Discharge: Improved JERARDO ZENG has been given the following list of [...] Follow up: With: Address: When: Elena Rey [address] [place] [address] [address], [address] [place] [address] Business (1) In 1 week 05/16/2022 With: Address: When: NEVIN LARA [address] [place] [address], FAX [phone] [place], [place] [address] Business (1) In the event that this physician does not participate in your insurance network, please consult with your insurance company to find a nearby participating provider. Comment: KARRI Che JAMIE, have received the attached patient education [...] Leaflets: You may receive a survey from [employer] asking you to rate your care experience. Your feedback is important and will help us understand what we do well and how we can improve the quality of care we provide to you, your loved ones and our community. It?s an honor to serve you. Thank you for choosing [facility] Normal [facility] IntraOperative Documentson 1 IntraOperative Documents [id number]#1.0 0CD:127 Normal [facility] IntraOperative Documents [id number]#1.0 0CD:127 Normal [facility] Patient Education - Texton 1 Patient [...] these instructions at home: Medicines ? Take zflc-ets-tshyhkg and prescription medicines only as told by [...] keep your urine pale yellow. ? Take icjr-bqf-mjwsnlp or prescription medicines. ? Eat foods that [...] and water are not available, use hand radiological technologist. ? Change your dressing as told by [...] to mo (more content not included)... Normal [facility] Preoperative Documentson Preoperative Documents [id number]#1.0 0CD:127 [facility] Prescriptions/Work Noteson 1 Prescriptions/Work Notes [id number]#1. 00CD:127 [facility] Progress Note-Physicianon Progress Note-Physician Patient: JERARDO ZENG Age: 41 years Sex: Female : 1980 Associated Diagnoses: None Author: Rivas Fish Jr., DO Postoperative Information Post Operative Note: Post Anesthesia Care Unit. Anesthetic utilized: General. Health Status Allergies: Allergic Reactions (Selected) Severity Not Documented Penicillins- Child. Problem list: All Problems Mass in neck / SNOMED CT 949050403 / Confirmed Resolved: Asthma / SNOMED CT 798243873 Physical Examination Vital Signs 05/08/2022 17:00 EDT [...] complications noted. Plan Transfer/ Discharge: Condition stable. [facility] Comment on above: Result Comment: Elec tronically Signed By: Rivas Fish Jr., DO\.br\Date and Time Signed: 05/09/22 09:54 EDT Progress Note-Physician ENT POD 1 Pt fresting comfortably AVSS Drain 8cc overnight AM Ca 9.0 Wound C/D/I. No fluid collection Drain removed. D/C home [facility] Comment on above: Result Comment: Elec tronically Signed By: Elena Rey MD\.br\Date and Time Signed: 05/09/22 07:28 EDT CHEMISTRYOrdered By: SYSTEM SYSTEM on 05-08-2022 Calcium [Mass/Vol] 9.1 mg/dL Normal 8.9 - 11. 1 mg/dL [facility] Remisol Calciumon 05-08-2022 Calcium [Mass/Vol] 9.1 mg/dL Normal 8.9-11.1 [facility] Comment on above: Performed By: #### 2 [id number] #### [facility] [address] [place] [address] Consent for Treatmenton Consent for Treatment [id number]#1.0 0CD:127 Normal [facility] H&P Updateon 05-08-2022 H&P Update [id number]#1. 00CD:127 Normal [facility] Main OR PACU I Recordon Main OR PACU I Record PACU Phase I Docum ent Type FT Summary Primary Physician: Elena Rey MD Finalized Date/Time: 05/08/22 16:34:29 Pt. Name: JERARDO ZENG/Sex: 1980 Female Med Rec #: [id number] Physician: Elena Rey MD Financial #: [id number] Pt. Type: A Room/Bed: [facility] Admit/Disch: 05/08/22 09:55:48 - Institution: Case [...] By: KEYANA LUGO RN 05/08/22 16:34 Normal [facility] Main OR Preoperative Recordo n 05-08-2022 Main OR Preoperative Record PreOp Document Type FT Summary Primary Physician: Elena Rey MD Finalized Date/Time: 05/08/22 13:08:16 Pt. Name: JERARDO ZENG/Sex: 1980 Female Med Rec #: [id number] Physician: Elena Rey MD Financial #: [id number] Pt. Type: A Room/Bed: [facility] Admit/Disch: 05/08/22 09:55:48 - Institution: Case [...] By: Francine Royal RN 05/08/22 13:08 Normal [facility] Monitor Recordon 05-08-2022 Monitor Record [id number]#1. 00CD:127 Normal [facility] Monitor Record [id number]#1. 00CD:127 Normal [facility] Progress Note-Physicianon Progress Note-Physician Patient: JERARDO ZENG [...] Family History: Hypertension Father Procedure history: Cholecystectomy (47071170). History of hysterectomy. (9929287639). Biopsy of breastx2 (196912008). Cyst - diagnostic aspiration hand (9077492689). Social History Social & Psychosocial Habits Alcohol [...] Auto 57.8 % Lymph Auto 35.4 % Sumner Auto 5.0 % Eos Auto 1.0 % Basophil Auto 0.8 % Neutro Absolute 4.1 E9/L Lymph Absolute 2.5 E9/L Sumner Absolute 0.4 E9/L Eos Absolute 0.1 E9/L [...] VENTRICULAR CONDUCTION DELAY NONSPECIFIC T-WAVE ABNORMALITY Plan [place] [employer] (ASA) physical status classification: Class II. Anesthetic Preoperative Plan Anesthesia: General. . Anesthetic plan, risks, benefits, and alternatives discussed with the patient and/or family. Patient verbalized understanding. Adverse reactions, complications, and alternatives discujssed. Consent signed and on chart.. Normal [facility] Comment on above: Result Comment: Elec tronically Signed By: Rivas Fish Jr., DO\.hussain\Date and Time Signed: 05/08/22 11:43 EDT UA With Cult Reflexon 2021 Bilirubin Ql (U) Negative Normal Negative [facility] Comment on above: Performed By: #### 1 [id number] ####[facility] [address] [place] [address] Clarity (U) CLEAR Normal Clear [facility] Comment on above: Performed By: #### 1 6291053 ####[facility] [address] [place] [address] Color (U) YELLOW Normal Yellow [facility] Comment on above: Performed By: #### 1 2697064 ####[address] [address] Epithelial cells.squamous LM.HPF (Urine sed) [#/Area] 0-2 Normal 0-2 [facility] Comment on above: Performed By: #### 1 9090570 ####[address] [address] Glucose Test strip (U) [Mass/Vol] Negative Normal Negative [facility] Comment on above: Performed By: #### 1 6141350 ####[address] [address] Hemoglobin Ql (U) 1+ Abnormal Negative [facility] Comment on above: Performed By: #### 1 3481429 ####[address] [address] Ketones (U) [Mass/Vol] Negative Normal Negative [facility] Comment on above: Performed By: #### 1 9708612 ####[address] [address] [place].plasma/Lithiu m.RBC (Bld) [Mass ratio] 0-3 Normal 0-3 [facility] Comment on above: Performed By: #### 1 7597680 ####[facility] [address] [place] [address] Mucus Ql (Urine sed) TRACE Normal Fish [facility] Comment on above: Performed By: #### 1 3106977 ####[address] [address] Nitrite Ql (U) Negative Normal Negative [facility] Comment on above: Performed By: #### 1 3641555 ####[facility] [place] [address] pH (U) 6.5 [pH] Invalid Interpretation Code 5.0-9.0 [facility] Comment on above: Performed By: #### 1 3139103 ####[place] [address] Protein (U) [Mass/Vol] Negative Normal Negative [facility] Comment on above: Performed By: #### 1 6941290 ####[place] [address] Specific gravity (U) [Rel density] 1.020 Invalid Interpretation Code 1.005-1.030 [facility] Comment on above: Performed By: #### 1 8892490 ####[place] [address] Type of Urine collection method Couch Normal [facility] Comment on above: Performed By: #### 1 8858104 ####[place] [address] Urobilinogen Qn (U) 0.2 {Cynthia'U}/dL Normal 0.0-1.0 [facility] Comment on above: Performed By: #### 1 3585464 ####[address] [address] WBC Auto Ql (U) Negative Normal Negative [facility] Comment on above: Performed By: #### 1 5229339 ####[place] [address] WBC LM.HPF (Urine sed) [#/Area] 0-5 Normal 0-5 [facility] Comment on above: Performed By: #### 1 6149312 ####[address] [address] URINALYSISOrdered By: Jarrett Rodriguez on 05-08-2022 Bilirubin Ql (U) Negative (05/08/22 12:46 PM) Normal Negative FT UA Auto SS Clarity (U) Clear (05/08/22 12:46 PM) Normal Clear FT UA Auto SS Color (U) Yellow (05/08/22 [...] PM) Normal Negative [facility] UA Auto SS [place].plasma/Lithiu m.RBC (Bld) [Mass ratio] 0-3 /HPF Normal [...] [facility] UA Auto SS Urobilinogen Qn (U) 0.2110945 {Cynthia'U}/dL Normal 0.0 - 1.0 EU/dL [facility] UA Auto SS WBC Auto Ql (U) Negative (05/08/22 12:46 PM) Normal Negative [facility] UA Auto SS WBC LM.HPF (Urine sed) [#/Area] 0-5 /HPF Normal 0-5/HPF [facility] UA Auto SS Coding Summary.on 05-05-2022 Coding Summary. CD:[id number] Gh 0bWw+PGhlYWQ+IK5STXLlX 01mbQFcbP8LN4bJDH2CCFK XLGPGPN8HWU3neAG1PBztU 2VybiAv FlvnuIImJJ40HRm8QAA1jG stUNcliY4bkNZgX3d8PdAw GM03zL04QSifXJOmSoJ9Wk ZpbjsgbWFy I1grQuAvlEFpQfo+PHRhYm xlIHdpZHRoPScxMDAlJyBz tYihBK1zKg6aLENcZALeaP xhcHNlOiBj g1pdLADfVCftZM2qmTtuY2 GdySQ3QIQge7n0It21mCK+ PGYaMRR1sVbbIZeul701Nl Zgu3vfPKI4 wNDyEKqoOWA6U35ys3S5AD VmSCXfTJD4tLF2nV8ozLuc jnccM3OqcUTiFjE2OOR6hO UrrF4pcHgq jgwbeX5hZdl+X82GMG8GIJ PIAI6RObb8A6SxFgruwFT+ HQ64SWVoTH69vGMqyFFwx2 grmTk9FkKh AQGoVXL3iIseXMlqa4GpMX KoK58tbVByy4Y2TWUshVmw vPWoTqHoqYN1jN5uEQwube vkc6kmaahu Plpfs7njdg05xG30Q94gGY gfVWUlNLR6WWQkTNIxjUzj rd8cqJ3uVk4+JGlak1tqb8 xgsBu2VcRa KDVdzeGgwImpGBL9j8MrLc 36G1XrcRcow5LwYgk6ae02 tKUrv1B5tQV6DDgvAUNdvB 9zCKjlHcR3 IZDyBiHnpT20jZQjMWveHw 9mwAfeuBrqKR7pFMTtepql LFMrlS0gJNLdwMCxfPddVU 4wNTBpbjtm z902NaEhUVG1XVKkdCKzK4 MhzM7tWaZsENXmTLEfG6El eMIgDAtjX346QCkrPkB7BE GkjqCtK6Lm HQRoyBebXmM3q3P8Xv2Vl8 NgclujDGC2WQmrKMBwDnWg LcUxVkZ0X6UoBdl1HMJfbQ vpBQ2rP3Hn JVPqopkjnbfdqSB9RAHpIO QspA14uHAmWDefBm1fo5H1 u109OBWpZVHqsD50Gu7fsC ogMTBwdCBU yG2aduier3boazouKoXrIK KePOu5RAj7DZTplFmbOnBd VJN0IxT3BYZ0mXIlnS1juK fvcmrmbS6a Oyc+Q53bhC5qWNB5JRX9mh zrYGKdawWoMV03FT12H3Bm PjwvdGFibGU+PGRpdiBzdH kjUN6xIsVe a2pph0DvMHnbU4MpSUDvFV cpZnq3NVDiGJJ4bFD9fK0r FAFfACpzr1N7vCS0E3Hpsq Hklm9fc1ul MWLaJFgfI37etSHmy3Q1FC MxxEB1XOMofPplRrTgfE84 Oyc+ZHVrtDjjl7ViKgfhv2 coh8xxtWt4 VpWsEXMcgmFzmFasJBW6r2 LwAv25J81dCMymSGFpXNFg XZIeMTCuoLogkw6ukQ1bJd 8+PGNvbCB3 lQM0dP5oQVBtXpC3IEcdD3 64BmWctNMhVevxv8mln6zh yWz7UkIxFGBtjwZocMckXU Z5v5TxFo69 K89eFFvkRXTdOXQuIYUlQH XpnXcule5koT6zBg5+PC9j j4ycyn22cW64qEY+PHRkIH T3tSpiXTkn QWFglB9cWLczDmW3TABdXl UgrG76vPYaXYvfZj5ngZes zYnmOY0oRODmwnqud110Kv Kmd8juBVBz vSOwJIbwPOA0V31vi1E0TD WnDQHhHGG6kMM0tA0fcCxw bjogbGVmdDsgdmVydGljYW myITvuX388 IHRvcDsnPlBhdGllbnQgTm BbPXz3G1RbEss9ZQIjvHhd HW7pcLGkDFoeLk1cjDhovA fpHZ9fIJAg cfmap831FtLml7thORCesX FnXHpjRDI0P53rn9O1GDJt WWDwNND4gMZ1zA5abWeish ogbGVmdDsg pjCmlNfxNZpqOIwnA727WA RvcDsnPkJpcnRoIERhdGU6 OT55LJ22aLUtn9P1lRP1R2 BhZGRpbmct syigyIY3FEWfPUIkmK67Qb 9cxWqdTl3sGMUxSMV4BQLp yVPiX8IutL4nGlPpBCCeTJ CwW4UaxPWe TJhxD981YJdlDzK5PJPxdv KsJ3ByDZKqtDmjFaY4f4G8 Zg9LV9D0DJ36FC59zFYhm6 Y2fGQ8Z7Na KTHxzqavkzzcnKM3TVTbQU DxdL92Pg9ppWjdVv6cMWCm OXJ6JQEwcBLaY4AoxR0fFe AjMDAwMDAw Q7CbxRDhJVvhZ392FLooCt P8IFRyakDaQ3TgRLBveMmg LdZ3s2O0Sj8WRCe8NI79HK 96cDXhh1R1 rAW9Z2GuSQZldhtgzctsiJ Z4VRHeERSkdW66Dg9kvHmn El8wWAEhYSE9NFJleRBwY9 QxuM0dVuPz MPMmTRDpZ9TumGKsVGddU6 85GJtxFvF2OOBlugLvP2Xa BEIboGftNeP0f6I9Gm5LEG BeKK24OIS6 vWJ4TJ27OU84Z8PpIsrrtQ FibGU+PHRhYmxlIHdpZHRo FVjkEKEpSbZwmIvbFD4bUy 9yZGVyLWNv iGrsuHKvFpRjr1szBIWnSC byMW9swGifR4FyqKN3FSXl a9e7Zt37J85gK5GdhPC+PG UkiFF5zHX3 jJ7jDuOyGoV3ITpvL442Rl QxjFJzUiarw5gio0fbtBg7 RaX5QJRfsqFixEudNXU7n4 XzKg75Q20b IHdpZHRoPSIxNSUiIHZhbG fyvo2ojB5gTt6+PGNvbCB3 mJH4wC0nOdPiPaW0HTdpE4 49InRvcCIv Mzvmn9ref4yfbUo1RiHoJI YbceRiuNshGNM8b5UvCh53 V0PfnNkfm4BpCxs7lc00sY Ddz6H9bAQ2 K3PfIOVqsipqbKKyfUleVM 3eDGXvqhvtGBSvkP4jVTUz B8f4HyDaGnC8IFloH5Jzqe P2ZXCowRCv UFitMHH8Q68gh5L4CWJqQY NlVYU9wLT9bZ1yyIbvdiyt bGVmdDsgdmVydGljYWwtYW qqH166FNWv jWzhPTOqkL5iQSZphSCxqC nfLO9iWXJiwptyOwfLY4gU PlToYMtJEXvXWW23RO95jH Zdk0D1jGJ9 L1VaGGDjjuuisjhamFL8ES YkUDAynS27sIXsFKmkXw4j s2K5b744IUZmZYWadZ68Ne 9udDogMTBw hYMDhJ9povxqz4vpctrvVi TyFDDqZZz0KFm7KLTfoThw QbCaBZK2MhC5IHZ6fYUhuB 1hbGlnbjog nB0xVhq+RYDlRAswTTz3DB wvdGQ+ECRuRKS6aYzgLFcj XRWquY1xWFCmZ6u2MnQkWb E1DCckO8Tv MUPmcxzlYz23vC0aPrLeQt I0XYmuJ3UfpyC6UBFgbECw BUwdBYR0P66va5M2INLvDY UnQYY5jVZ3 iL5ggLmtyxmjfYArnAnfmi JwdRscFPvcKTwdD761YOGr eCbkPpGcUXkzRLKgBD94IO 46cHBty2S2 wPX6K1WaRZCxuruqrvorbT C8YCWpZPUzrU06yGFnEYyl Kh8lx8R9j153LDUpFQPrqH 45Hy5ctBpm SVIoaOFPfS0klhcwg2huof yrKfUjDOCaHJk9SOj7ARMu vQnpZsIdTYO2HtG1NGS3iE MmkR9dnUny bspoyD5zVfh+RmVtYWxlPC 51DA06rLEyi0S0gGH7Z0Ix MGCyuwcfqsyfiYM9SVIdKV IzdI51vJNa ZLywSj6ha0C6w223PCDdRF KceS36Yh8xxJcjTCRvkSTA gV0zelvxw9khzljsXxBeKK VvAFu6XGu9 ZNVxaFslEpScJGO4KjI3SN V6dCTukG9dqWddircesO8f Oyc+J1T5vZV8iNXzzHpjyW Q+SH06sa74 V6HjKxilSag7SJGrXQN6jQ B3rH6vCAFxRWtah6G4sRI7 O4FwiqNmul7ri3gkKRAbJX wqH15lnTFn i5T4NLNwgWT4QILvrTvpLf NhfO72Olk+YDIqkIobl7Du Njawy1xau0smgKm7DxTzNP IgdmFsaWdu NGO1s6WyGx20M99iSMglRK GgLKDsHTEfXFYbuEunep1j fI8cGp0+XYTkgED4pCG7lF 8jAwQiKnU6 LZkvR954HnIemLLvHgjlx1 mdp0doqOt5HyTsQFYtwjGb qEzuLIU8d3FmXg56Q1DmnW lez5HeScy1 ki83hJRqn2L8vTU9F6FgXJ OicihisBHirOotFM6qWICb irsvUKZhbG0qHIBbD6u7Ib LvPuL7JFgd G6FyasU7SPHqtETwMREzqX PJcH0xryenl7wpcsipYvMh NAXdZDc7GXm2SNJocEjiWg YaVCB8EgG0 TSC4wJRazP4iiLissrxmfX 9wOyc+PPt1a5ffrXLpSW0y uKG2SH68MT60bLXnr0M0fV D3F3BiOPUn olujcmklvTO2MSJmLBHjoW 61Ly5xaOxiVw2oPEWgCQM1 VKVrrHEsY8OgiS1tNcJkON McIZQaM5Ub bFRzYCfhY491TWfzAuB5VU NujkYnH7VnIJQyvPqyYgW9 o8G7Yo5WCI37OT73MJ17uN Owd9K3uDU6 H3SjPUNwobgfkqyawXB1SA EiITOxcE77Eb1lsNmtAx8o FPVdZNI0SVCzhARxJ5AmjZ 9yOiAjMDAw YXNoI1MguMBmCZtaQ515FQ jtDfK2VLXzjjCaW7PpPCWp iAxgTrY0m0W7Lb2ZTv16HD 74AW54jDIu u9D7vBD5F0PmNCSrivbgna vaxVG6SLPcVSWwjB33Kc3w kHwgAj7fVOKyFUU2NCZovU CoP1PuyE6m WkZoHEMsFFIyO4EwxQFfPU vdC250HYasUkP6AZJgarUa O0GuDVErjHdcMmU5r9C6Ex 4BRZpcyye8 C3LhIcguoHO+VA67WIOoMQ 82eTOmzNAqt6pwcKr9YnCl IVEkBLP3vGmjGFnuj2KfDS ZrQ26xsKEt c2U6 (more content not included)... Normal [facility] Auto Diffon 04-29-2022 Basophils/100 WBC (Bld) 0.8 % Normal 0.0-2.0 [facility] Comment on above: Order Comment: Order Added by Discern Expert. Performed By: #### 2 458704, 3915188, 2339148, 2803457, 8368495, 01772955, 6438305 ####[address] [address] Basophils/Leukocytes Auto (Bld) [Pure # fraction] 0.1 E9/L Normal 0.0-0.2 [facility] Comment on above: Order Comment: Order Added by Discern Expert. Performed By: #### 2 610665, 0463138, 0685481, 0106921, 3493038, 16913436, 4279739 ####[address] [address] Eosinophils/100 WBC (Bld) 1.0 % Normal 0.0-8.0 [facility] Comment on above: Order Comment: Order Added by Discern Expert. Performed By: #### 2 281877, 4162573, 1050449, 9334887, 3603145, 58040929, 9086504 ####[address] [address] Eosinophils/Leukocyte s Auto (Bld) [Pure # fraction] 0.1 E9/L Normal 0.0-0.5 [facility] Comment on above: Order Comment: Order Added by Discern Expert. Performed By: #### 2 233821, 5033534, 5676303, 2779002, 8662455, 92879119, 6700828 ####[address] [address] Lymphocytes/100 WBC (Bld) 35.4 % Normal 14.0-50.0 [facility] Comment on above: Order Comment: Order Added by Discern Expert. Performed By: #### 2 898653, 0822494, 0969799, 1425083, 5245517, 05249695, 5541777 ####[place] [address] [place] [address] Lymphocytes/Leukocyte s Auto (Bld) [Pure # fraction] 2.5 E9/L Normal 1.0-4.0 [facility] Comment on above: Order Comment: Order Added by Discern Expert. Performed By: #### 2 665885, 9333222, 3048583, 0062254, 6791161, 86146036, 4920056 ####[address] [address] Monocytes/100 WBC (Bld) 5.0 % Normal 4.0-14.0 [facility] Comment on above: Order Comment: Order Added by Discern Expert. Performed By: #### 2 823380, 3138599, 1981245, 0356285, 9051296, 69885322, 0573146 ####[address] [address] Monocytes/Leukocytes Auto (Bld) [Pure # fraction] 0.4 E9/L Normal 0.2-1.0 [facility] Comment on above: Order Comment: Order Added by Discern Expert. Performed By: #### 2 128469, 5990901, 8311329, 6050670, 5642210, 93809876, 2983516 ####[address] [address] Neutrophils/100 WBC (Bld) 57.8 % Normal 36.0-75.0 [facility] Comment on above: Order Comment: Order Added by Discern Expert. Performed By: #### 2 998943, 1478846, 1039936, 3371426, 2309299, 81741373, 4911390 ####[place] [address] [place] [address] Neutrophils/Leukocyte s Auto (Bld) [Pure # fraction] 4.1 E9/L Normal 2.0-7.5 [facility] Comment on above: Order Comment: Order Added by Discern Expert. Performed By: #### 2 225251, 1700130, 9265263, 3664355, 4776719, 54167152, 9831120 ####[facility] [address] [place] [address] BUNon 04-29-2022 Urea nitrogen [Mass/Vol] 11 mg/dL Normal 5-21 [facility] Comment on above: Performed By: #### 2 996543, 99627724, 1018285, 9776421 #### [facility] [address] [place] [address] CBC w/ Auto Diffon Erythrocyte distribution width (RBC) [Ratio] 14.0 % Normal 10.9-14.2 [facility] Comment on above: Performed By: #### 2 020449, 7209236, 0503769, 3151537, 5275558, 80031827, 9308578 ####[facility] [address] [place] [address] Hematocrit (Bld) [Volume fraction] 41.9 % Normal 34.0-46.0 [facility] Comment on above: Performed By: #### 2 624853, 7009867, 3396564, 2658287, 8741759, 86207827, 0202579 ####[facility] [address] [place] [address] Hemoglobin (Bld) [Mass/Vol] 13.8 g/dL Normal 12.0-16.0 [facility] Comment on above: Performed By: #### 2 418371, 3510715, 7692008, 9228084, 5352395, 68278570, 7365416 ####[facility] [address] [place] [address] MCH (RBC) [Entitic mass] 28.3 pg Normal 27.0-34.0 [facility] Comment on above: Performed By: #### 2 842772, 8170066, 7353640, 7215320, 5039618, 29810135, 7891667 ####[facility] [address] [place] [address] MCHC (RBC) [Mass/Vol] 32.8 g/dL Normal 31.4-36.0 [facility] Comment on above: Performed By: #### 2 858634, 6098777, 0126932, 1662736, 4435802, 13046266, 1109727 ####[facility] [address] [place] [address]57 MCV (RBC) [Entitic vol] 86.1 fL Normal 80.0-100.0 [facility] Comment on above: Performed By: #### 2 720297, 2925552, 2866791, 0894981, 6808991, 04550639, 7119798 ####[facility] [address] [place], [place] [address] Platelet mean volume (Bld) [Entitic vol] 9.0 fL Normal 6.4-10.8 [facility] Comment on above: Performed By: #### 2 581782, 3892844, 5846368, 2715852, 7660942, 22225374, 3938655 ####[facility] [address] [place] [address]57 Platelets (Bld) [#/Vol] 252.0 E9/L Normal 150.0-500.0 [facility] Comment on above: Performed By: #### 2 836226, 6081313, 2123800, 1820920, 6494245, 61592041, 7901524 ####[facility] [address] [place], [place] [address] RBC (Bld) [#/Vol] 4.9 E12/L Normal 4.3-5.9 [facility] Comment on above: Performed By: #### 2 566015, 5819335, 0736573, 4031081, 6611033, 48401724, 9049009 ####[place] [address] [place] [address]1257 WBC corrected for nucl RBC Auto (Bld) [#/Vol] 7.1 E9/L Normal 4.0-11.0 [facility] Comment on above: Performed By: #### 2 967266, 2889095, 5008818, 5194249, 2717156, 57136892, 5686339 ####[facility] [address] [place] [address] CHEMISTRYOrdered By: SYSTEM SYSTEM on 04-29-2022 Anion [...] rate/Area] mL/min/1.73 m2 Normal >=59mL/min/1 .73 m2 [facility] Chem S GFR/1.73 sq M.predicted among non-blacks MDRD (S/P/Bld) [Vol rate/Area] mL/min/1.73 m2 Normal >=59mL/min/1 .73 m2 [facility] S Magnesium [Mass/Vol] 1.7 mg/dL Normal 1.3 - 2 .4 mg/dL [facility] Remisol Phosphate [Mass/Vol] 3.2 mg/dL Normal 1.9 - 4 .6 mg/dL [facility] Remisol Potassium [Moles/Vol] 3.8 mmol/L Normal 3.5 [...] 04-29-2022 Calcium [Mass/Vol] 9.1 mg/dL Normal 8.9-11.1 [facility] Comment on above: Performed By: #### 2 258553, 5169370, 2964902, 3246370, 4805808, 26439828, 7543775 ####[facility] [address] [place] [address] Consent for Treatmenton 04-04 Consent for Treatment [id number] 0CD:127 Normal [facility] Creatinineon 04-29-2022 Creatinine [Mass/Vol] 1.0 mg/dL Normal 0.5-1.3 [facility] Comment on above: Performed By: #### 2 524249, [id number], 4902362, 4088771 ####[facility] [address] [place] [address] HEMATOLOGYOrdered By: SYSTEM SYSTEM on 04-29-2022 Basophils/100 WBC (Bld) 0.8 % Normal 0.0 - 2.0 % FT HemeAutoSS Basophils/Leukocytes Auto (Bld) [Pure # fraction] [...] 32.8 g/dL Normal 31.4 - 36.0 gm/dL [facility] HemeAutoSS MCV (RBC) [Entitic vol] 86.1 fL Normal 80.0 - 100.0 fL [facility] HemeAutoSS Platelet mean volume (Bld) [Entitic vol] 9.0 fL Normal 6.4 - 10.8 fL [facility] HemeAutoSS Platelets (Bld) [#/Vol] 252.0 E9/L Normal 150.0 - 500.0 E9/L [facility] HemeAutoSS RBC (Bld) [#/Vol] 4.9 E12/L Normal 4.3 - 5.9 E12/L [facility] HemeAutoSS WBC corrected for nucl RBC Auto (Bld) [#/Vol] 7.1 E9/L Normal 4.0 - 11.0 E9/L [facility] HemeAutoSS Lyteson 04-29-2022 Anion gap [Moles/Vol] 9 mmol/L Normal 6-16 [facility] Comment on above: Performed By: #### 2 795234, 04545945, 0341615, 8793431 ####[facility] [address] [place] [address] Chloride [Moles/Vol] 106 mmol/L Normal 101-111 [facility] Comment on above: Performed By: #### 2 659600, 87631359, 6257797, 5810855 ####[facility] [address] [place] [address] CO2 [Moles/Vol] 25 mmol/L Normal 21-31 [facility] Comment on above: Performed By: #### 2 318047, 21865135, 1115743, 6112473 ####[facility] [address] [place] [address] Potassium [Moles/Vol] 3.8 mmol/L Normal 3.5-5.3 [facility] Comment on above: Performed By: #### 2 447672, 78921312, 9099339, 8188120 ####[facility] [address] [place] [address] Sodium [Moles/Vol] 136 mmol/L Normal 135-145 [facility] Comment on above: Performed By: #### 2 446497, 30712164, 6610042, 6109017 ####[facility] [address] [place] [address] Magnesiumon 04-29-2022 Magnesium [Mass/Vol] 1.7 mg/dL Normal 1.3-2.4 [facility] Comment on above: Performed By: #### 2 340378, 6423352, 5648081, 8485820, 5083629, 79239984, 6798647 ####[facility] [address] [place] [address] PT & PTTon 04-29-2022 aPTT Coag (PPP) [Time] 34.2 second(s) Normal 25.1-36.5 [facility] Comment on above: Result Comment: Para [...] the same coagulation reagent and instrumentation as [facility]. Currently there are no coagulation studies available worldwide for children to 14 days, and no normal ranges. Heparin therapeutic range (represented by Anti-Factor Xa activity of 0.2 - 0.4 U/mL) corresponds to PTT of 56.6 - 109.0 sec. Performed By: #### 2 717812, 2293107, 2659857, 8185352, 9644400, 64567460, 2363851 ####[facility] [address] [place] [address] INR Coag (PPP) [Relative time] 1.0 {INR} Invalid Interpretation Code [facility] Comment on above: Result Comment: INR results are specifically intended to assess patients stabilized on long-term Anticoagulation therapy suggested INR?s ?Less Intensive Anticoagulation? 2.0 ? 3.0 Conventional Range 3.0 ? 4.5 Performed By: #### 2 131338, 0778974, 4319308, 4951461, 8398262, 75114985, 8937119 ####[facility] [address] [place] [address] PT Coag (PPP) [Time] 11.6 second(s) Normal 9.4-12.5 [facility] Comment on above: Result Comment: 15 [...] the same coagulation reagent and instrumentation as [facility]. Currently there are no coagulation studies available worldwide for children to 14 days, and no normal ranges. Performed By: #### 2 916741, 0596930, 2704146, 6626910, 5521925, 48820692, 8195716 ####[facility] [address] [place] [address] Phosphoruson 04-29-2022 Phosphate [Mass/Vol] 3.2 mg/dL Normal 1.9-4.6 [facility] [facility] Comment on above: Performed By: #### 2 [id number] ####[facility] [id number] [place] [address] TSHon 04-29-2022 TSH Qn 0.89 m[IU]/L Normal 0.34-5.60 [facility] Comment on above: Performed By: #### 2 [id number] ####[facility] [id number] [place] [address] eGFRon 04-29-2022 GFR/1.73 sq M.predicted among blacks MDRD (S/P/Bld) [Vol rate/Area] mL/min/{1.73_m2} Normal >=59 [facility] Comment on above: Order Comment: Order added by Discern Expert. Result Comment: eGFR is race adjusted. AA=. Performed By: #### 2 [id number] ####[facility] [id number] [place] [address] GFR/1.73 sq M.predicted among non-blacks MDRD (S/P/Bld) [Vol rate/Area] mL/min/{1.73_m2} Normal >=59 [facility] Comment on above: Order Comment: Order added by Discern Expert. Result Comment: Cane Pusher maggie kidney disease could be indicated at eGFR's of less than 60 mL/min/1.73m2. Kidney failure is indicated at less than 15 mL/min/1.73m2. Performed By: #### 2 [id number] ####[facility] [id number] [place] [address] Consent for Procedure/Surger yon 04-17-2022 Consent for Procedure/Surgery [id number]. 00CD:127 Normal [facility] Physician Orderon 04-16-2022 Physician Order [id number]. 00CD:127 Normal [facility] Physical Rehabilitation Offi ce/Clinic Noon 01-01-2018 Physical Rehabilitation Office/Clinic No EMG/NCS of the LUE completed today. Please see report. Electronically signed by Ginny Arango MD 01/01/18 13:25 EDT Normal [facility] Vital Signs Date Time Vital Sign Value Performing Clinician Facility 01-19-2024 11:10-0400 Diastolic blood pressure 54 mm[Hg] GARMENT ALTERATION EXAMINERRad Lara Work Phone: [facility] 01-19-2024 11:10-0400 Heart rate 62 /min KIKI Lara Work Phone: [facility] 01-19-2024 11:10-0400 Respiratory rate 18 /min KIKI Lara Work Phone: [facility] 01-19-2024 11:10-0400 SaO2% (BldA) [Mass fraction] 99 % GARMENT ALTERATION EXAMINERRad Lara Work Phone: [facility] 01-19-2024 11:10-0400 Systolic blood pressure 91 mm[Hg] GARMENT ALTERATION EXAMINER Nevin Anglim Work Phone: [facility] 01-19-2024 09:34-0400 Body height 170.18 cm GARMENT ALTERATION EXAMINER Nevin Anglim Work Phone: [facility] 01-19-2024 09:34-0400 Body weight 90.71 kg GARMENT ALTERATION EXAMINER Nevin Anglim Work Phone: [facility] 12-08-2023 09:52-0400 Body height 170.18 cm GARMENT ALTERATION EXAMINER Nevin Anglim Work Phone: [facility] 12-08-2023 09:52-0400 Body mass index (BMI) [Ratio] 31.8 kg/m2 GARMENT ALTERATION EXAMINER Nevin Anglim Work Phone: [facility] 12-08-2023 09:52-0400 Body temperature 97.3 [degF] GARMENT ALTERATION EXAMINER Nevin Anglim Work Phone: [facility] 12-08-2023 09:52-0400 Body weight 92.07 kg GARMENT ALTERATION EXAMINER Nevin Anglim Work Phone: [facility] 12-08-2023 09:52-0400 Diastolic blood pressure 103 mm[Hg] GARMENT ALTERATION EXAMINER Nevin Anglim Work Phone: [facility] 12-08-2023 09:52-0400 Heart rate 83 /min GARMENT ALTERATION EXAMINER Nevin Anglim Work Phone: [facility] 12-08-2023 09:52-0400 Respiratory rate 16 /min GARMENT ALTERATION EXAMINER Nevin Anglim Work Phone: [facility] 12-08-2023 09:52-0400 Systolic blood pressure 138 mm[Hg] GARMENT ALTERATION EXAMINER Nevin Anglim Work Phone: [facility] 06-24-2023 11:00-0500 Body height 170.18 cm Alejandra Card Other [employer] Other 06-24-2023 11:00-0500 Body mass index (BMI) [Ratio] 32.32 kg/m2 Alejandra Card Other [employer] Other 06-24-2023 11:00-0500 Body temperature 96.2 [degF] Alejandra Huertass Other [facility] Other 06-24-2023 11:00-0500 Body weight 93.62 kg Alejandra Card Other [employer] Other 06-24-2023 11:00-0500 Diastolic blood pressure 95 mm[Hg] Alejandra Card Other [employer] Other 06-24-2023 11:00-0500 Respiratory rate 16 /min Alejandra Card Other [employer] Other 06-24-2023 11:00-0500 Systolic blood pressure 140 mm[Hg] Alejandra Card Other [employer] Other 12-25-2022 11:18-0400 Body temperature 97.59 [degF] TERRY Phelan MD Work Phone: [facility] 12-25-2022 11:18-0400 Body weight 94.35 kg TERRY Phelan MD Work Phone: [facility] 12-25-2022 11:18-0400 Diastolic blood pressure 108 mm[Hg] TERRY Phelan MD Work Phone: [facility] 12-25-2022 11:18-0400 Heart rate 60 /min TERRY Phelan MD Work Phone: [facility] 12-25-2022 11:18-0400 Respiratory rate 18 /min TERRY Phelan MD Work Phone: [facility] 12-25-2022 11:18-0400 SaO2% (BldA) [Mass fraction] 96 % TERRY Phelan MD Work Phone: [facility] 12-25-2022 11:18-0400 Systolic blood pressure 153 mm[Hg] TERRY Phelan MD Work Phone: [facility] 08-06-2022 09:50-0500 Body temperature 97 [degF] [facility] [place] Work Phone: [facility] 08-06-2022 09:50-0500 Body weight 91.63 kg [facility] [place] Work Phone: [facility] 08-06-2022 09:50-0500 Diastolic blood pressure 93 mm[Hg] [facility] [place] Work Phone: [facility] 08-06-2022 09:50-0500 Heart rate 79 /min [facility] [place] Work Phone: [facility] 08-06-2022 09:50-0500 Respiratory rate 16 /min [facility] [place] Work Phone: [facility] 08-06-2022 09:50-0500 SaO2% (BldA) [Mass fraction] 98 % [facility] [place] Work Phone: [facility] 08-06-2022 09:50-0500 Systolic blood pressure 154 mm[Hg] [facility] [place] Work Phone: [facility] 08-05-2022 09:59-0500 Body temperature 97.2 [degF] [facility] [place] Work Phone: [facility] 08-05-2022 09:59-0500 Body weight 91.63 kg [facility] [place] Work Phone: [facility] 08-05-2022 09:59-0500 Diastolic blood pressure 91 mm[Hg] [facility] [place] Work Phone: [facility] 08-05-2022 09:59-0500 Heart rate 71 /min [facility] [place] Work Phone: [facility] 08-05-2022 09:59-0500 Respiratory rate 16 /min [facility] [place] Work Phone: [facility] 08-05-2022 09:59-0500 SaO2% (BldA) [Mass fraction] 99 % [facility] [place] Work Phone: [facility] 08-05-2022 09:59-0500 Systolic blood pressure 130 mm[Hg] [facility] [place] Work Phone: [facility] 05-09-2022 08:45-0400 Hourly Rounding Elena Timmis [facility] 05-09-2022 08:45-0400 Promise to Return Elena Timmis [facility] 05-09-2022 07:30-0400 Hourly Rounding Elena Timmis [facility] 05-09-2022 07:30-0400 Promise to Return Elena Timmis [facility] 05-09-2022 07:00-0400 Body temperature 98.42 [degF] Elena Timmis [facility] 05-09-2022 07:00-0400 Diastolic blood pressure 94 mm[Hg] Elena Timmis [facility] 05-09-2022 07:00-0400 Heart rate 96 /min Elena Timmis [facility] 05-09-2022 07:00-0400 Respiratory rate 18 /min Elena Timmis [facility] 05-09-2022 07:00-0400 SaO2% (BldA) [Mass fraction] 94 % Elena Timmis [facility] 05-09-2022 07:00-0400 Systolic blood pressure 132 mm[Hg] Elena Timmis [facility] 05-09-2022 06:11-0400 Hourly Rounding Elena Timmis [facility] 05-09-2022 06:11-0400 Promise to Return Elena Timmis [facility] 05-09-2022 04:45-0400 Body temperature 98.06 [degF] Elena Timmis [facility] 05-09-2022 04:45-0400 Diastolic blood pressure 78 mm[Hg] Elena Timmis [facility] 05-09-2022 04:45-0400 Heart rate 84 /min Elena Timmis [facility] 05-09-2022 04:45-0400 Mean blood pressure 95 mm[Hg] Elena Timmis [facility] 05-09-2022 04:45-0400 SaO2% (BldA) [Mass fraction] 93 % Elena Timmis [facility] 05-09-2022 04:45-0400 Systolic blood pressure 128 mm[Hg] Elena Timmis [facility] 05-09-2022 04:00-0400 Blood Pressure Location Elena Timmis [facility] 05-09-2022 00:35-0400 Body temperature 98.24 [degF] Elena Timmis [facility] 05-09-2022 00:35-0400 Diastolic blood pressure 84 mm[Hg] Elena Timmis [facility] 05-09-2022 00:35-0400 Heart rate 82 /min Elena Timmis [facility] 05-09-2022 00:35-0400 Mean blood pressure 97 mm[Hg] Elena Timmis [facility] 05-09-2022 00:35-0400 SaO2% (BldA) [Mass fraction] 95 % Elena Timmis [facility] 05-09-2022 00:35-0400 Systolic blood pressure 122 mm[Hg] Elena Timmis [facility] 05-09-2022 00:00-0400 Blood Pressure Location Elena Timmis [facility] 05-09-2022 00:00-0400 Respiratory rate 17 /min Elena Timmis [facility] 05-08-2022 20:00-0400 Mean blood pressure 108 mm[Hg] Elena Timmis [facility] 05-08-2022 20:00-0400 Respiratory rate 16 /min Elena Timmis [facility] 05-08-2022 16:12-0400 Body temperature 97.52 [degF] Elena Timmis [facility] 05-08-2022 16:12-0400 Respiratory rate 15 /min Elena Timmis [facility] 05-08-2022 16:00-0400 Respiratory rate 26 /min Elena Timmis [facility] 05-08-2022 15:47-0400 Body temperature 97.34 [degF] Elena Timmis [facility] 05-08-2022 10:14-0400 Mean blood pressure 100 mm[Hg] Elena Timmis [facility] 05-08-2022 10:13-0400 Heart rate 82 /min Elena Timmis [facility] 04-29-2022 11:59-0400 Blood Pressure Location Elena Timmis [facility] 04-29-2022 11:59-0400 Body temperature 97.88 [degF] Elena Timmis [facility] 04-29-2022 11:59-0400 BP/Pulse Patient Position Elena Timmis [facility] 04-29-2022 11:59-0400 Diastolic blood pressure 93 mm[Hg] Elena Timmis [facility] 04-29-2022 11:59-0400 Heart rate 67 /min Elena Timmis [facility] 04-29-2022 11:59-0400 Mean blood pressure 109 mm[Hg] Elena Timmis [facility] 04-29-2022 11:59-0400 Systolic blood pressure 140 mm[Hg] Elena Timmis [facility] 04-29-2022 11:58-0400 Blood Pressure Location Elena Timmis [facility] 04-29-2022 11:58-0400 BP/Pulse Patient Position Elena Timmis [facility] 04-29-2022 11:58-0400 Diastolic blood pressure 93 mm[Hg] Elena Timmis [facility] 04-29-2022 11:58-0400 Heart rate 61 /min Elena Timmis [facility] 04-29-2022 11:58-0400 Mean blood pressure 108 mm[Hg] Leena Timmis [facility] 04-29-2022 11:58-0400 Respiratory rate 16 /min Elena Rey [facility] 04-29-2022 11:58-0400 SaO2% (BldA) [Mass fraction] 100 % Elena Rey [facility] 04-29-2022 11:58-0400 Systolic blood pressure 139 mm[Hg] Elena Rey [facility] Encounters Encounter Date Encounter Type Care Provider Facility Start: 03-28-2024 End: 03-28-2024 ambulatory IMELDA YANES [facility] Start: 03-13-2024 End: 03-14-2024 Emergency department patient visit [facility] Start: 03-01-2024 End: 03-01-2024 Emergency department patient visit [facility] Start: 01-19-2024 Non-patient / Non-visit KIKI Lara Work Phone: [facility] Work Phone: Start: 01-19-2024 End: 01-19-2024 Admission to same day surgery center KIKI Lara Work Phone: [facility] Work Phone: Start: 01-19-2024 End: 01-19-2024 ambulatory KIKI Lara Work Phone: [facility] Work Phone: Start: 12-11-2023 End: 12-11-2023 ambulatory NEVIN LARA [facility] Start: 12-08-2023 End: 12-08-2023 Patient encounter procedure KIKI Lara Work Phone: [facility] Work Phone: Start: 12-04-2023 Non-patient / Non-visit KIKI Lara Work Phone: [facility] [employer] Work Phone: Start: 11-13-2023 End: 11-13-2023 [facility] Start: 10-07-2023 End: 10-07-2023 ambulatory NEVIN LARA [facility] Start: 08-28-2023 End: 08-29-2023 ambulatory [facility] Facility:[place] Start: 08-19-2023 End: 08-20-2023 ambulatory [facility] Facility:[place] Start: 08-12-2023 End: 08-13-2023 Emergency department patient visit IRMA JOSEPH [facility] Start: 07-22-2023 End: 07-22-2023 ambulatory Azsilvia Vallesvikys Other [facility] [employer] Other Start: 07-22-2023 Telephone encounter Azsilvia Bakvikys [facility] Start: 07-09-2023 End: 07-09-2023 Patient encounter procedure KIKI Lara Work Phone: [facility] [place] Work Phone: Start: 07-09-2023 End: 07-09-2023 ambulatory KIKI Lara Work Phone: [facility] Work Phone: Start: 06-25-2023 Telephone encounter Neurology Provid er Neurology Comment on above: Received Outside Med ical Records (External EMG & lab reports) Start: 06-24-2023 End: 06-24-2023 ambulatory Aziz Bakhous Other [employer] Other Start: 06-24-2023 Office outpatient ne w 30 minutes Aziz Bakhous [facility] Start: 06-23-2023 Telephone encounter Neurology Provid er Neurology Comment on above: Received Outside Med ical Records (External referral to [facility] [place]/) Start: 03-27-2023 Social Work Heather [facility] Hematolo gy/Oncology Start: 03-26-2023 Orders Only Navya duque MD Work Phone: Radiation Oncology Comment on above: Thyroid cancer (HCC) (Primary Dx) Start: 03-19-2023 End: 03-19-2023 ambulatory [facility] Facility:[place] Start: 02-09-2023 Telephone encounter Heather MONTGOMERY H ematology/Oncology Comment on above: Social Work Services ([facility] [place] SW Report follow up.) Start: 02-05-2023 End: 02-05-2023 ambulatory Navya PHELAN Facility:[place] Start: 01-29-2023 End: 01-29-2023 ambulatory [facility] Facility:[place] Start: 12-25-2022 End: 12-25-2022 ambulatory Navya PHELAN Facility:[place] Start: 12-25-2022 End: 12-25-2022 Patient encounter procedure Navya Phelan MD Work Phone: Radiation Oncology Comment on above: Malignant neoplasm o f thyroid gland (HCC) (Primary Dx) Start: 12-04-2022 End: 12-04-2022 ambulatory [facility] Facility:[place] Start: 10-22-2022 Orders Only Navya duque MD Work Phone: Radiation Oncology Comment on above: Thyroid cancer (HCC) (Primary Dx) Start: 10-20-2022 End: 10-21-[address] WESLY PHELAN Facility: Start: 08-28-2022 Refill G Larry duque MD Work Phone: Radiation Oncology Comment on above: Refill Request Start: 08-07-2022 End: 08-07-2022 ambulatory KIKI Lara Work Phone: [facility] Work Phone: Start: 08-07-2022 End: 08-07-2022 Patient encounter procedure KIKI Lara Work Phone: [facility]-Nuc Med [facility] Work Phone: Comment on above: Malignant neoplasm o f thyroid gland (HCC) (Primary Dx) Start: 08-06-2022 Telephone encounter Navya Phelan MD Work Phone: Radiation Oncology Comment on above: Nausea Start: 08-06-2022 End: 08-06-2022 Patient encounter procedure Lab/Port [place] [place] Work Phone: Radiation Oncology Comment on above: Malignant neoplasm o f thyroid gland (HCC) (Primary Dx) Start: 08-05-2022 End: 08-05-2022 Orders Only Navya Phelan MD Work Phone: Radiation Oncology Comment on above: Malignant neoplasm o f thyroid gland (HCC) (Primary Dx) Start: 07-17-2022 Patient encounter procedure [facility] Provider [facility] Department Start: 07-15-2022 Patient encounter procedure [facility] Provider [facility] Department Start: 07-09-2022 Patient encounter procedure [facility] Provider [facility] Department Start: 07-08-2022 End: 07-08-2022 Patient encounter procedure Navya Phelan MD Work Phone: Radiation Oncology Comment on above: Thyroid cancer (HCC) (Primary Dx) Start: 05-08-2022 End: 05-09-2022 ambulatory Elena Licea Timmis Facility:[facility] Start: 05-08-2022 End: 05-09-2022 Admission to same day surgery center Elena Rey [facility] Start: 04-29-2022 End: 04-30-2022 ambulatory Elena H Timmis Facility:[facility] Start: 04-29-2022 End: 04-29-2022 Patient encounter procedure Elena Licea Timmis [facility] Start: 01-01-2018 End: 01-02-2018 Ambulatory GINNY ARANGO Facility:[facility] Procedures Date Procedure Procedure Detail Performing Clinician Start: 01-19-2024 Esophagogastroduodenoscopy GARMENT ALTERATION EXAMINER Nevin moreno Work Phone: Start: 07-09-2023 Ultrasonography of bilateral kidneys GARMENT ALTERATION EXAMINER Nevin Lara Work Phone: Start: 08-07-2022 Oral radionuclide therapy GARMENT ALTERATION EXAMINER Nevin campbell Work Phone: Start: 07-08-2022 Thyroglobulin antibody G Larry Phelan MD Work Phone: Start: 05-08-2022 Thyroidectomy Elena Timmis Biopsy of breast Elena Riley is Cholecystectomy Elena Timmi s Cyst - diagnostic aspiration Elena Timmis H/O: hysterectomy Elena Harsha mis Plan of Treatment Date Care Activity Detail Author Start: 11-13-2030 Urine microalbumin profile DTaP,Tdap,Td Vaccine (2 - Td or Tdap) [facility] Start: 01-19-2024 [facility] Start: 04-03-2023 Covid-19 Vaccine ( season) Covid-19 Vaccine () [facility] Start: 04-03-2023 Influenza vaccination C [facility] Start: 02-04-2023 End: 04-06-2023 Thyrotropin [Units/volume] in Serum or Plasma TSH BLD Lab Routine Malignant neoplasm of thyroid gland (HCC) Expected: 02/04/2023, Expires: 04/06/2023 [facility] Work Phone: Comment on above: Expected: 02/04/2023 , Expires: 04/06/2023 Start: 02-04-2023 End: 04-06-2023 Thyroxine (T4) [Mass/volume] in Serum or Plasma T4/THYROXINE BLOOD Lab Routine Malignant neoplasm of thyroid gland (HCC) Expected: 02/04/2023, Expires: 04/06/2023 [facility] Work Phone: Comment on above: Expected: 02/04/2023 , Expires: 04/06/2023 Start: 02-02-2023 End: 04-04-2023 Thyroglobulin and Thyrogobulin Ab panel - Serum or Plasma THYROGLOBULIN, SERUM WITH REFLEX TO IA OR LC-MS/MS Lab Routine Malignant neoplasm of thyroid gland (HCC) Expected: 02/02/2023, Expires: 04/04/2023 [facility] Work Phone: Comment on above: Expected: 02/02/2023 , Expires: 04/04/2023 Start: 12-22-2022 End: 02-21-2023 Thyrotropin [Units/volume] in Serum or Plasma TSH BLD Lab Routine Thyroid cancer (HCC) Expected: 12/22/2022, Expires: 02/21/2023 [facility] Work Phone: Comment on above: Expected: 12/22/2022 , Expires: 02/21/2023 Start: 12-22-2022 End: 02-21-2023 Thyroxine (T4) [Mass/volume] in Serum or Plasma T4/THYROXINE BLOOD Lab Routine Thyroid cancer (HCC) Expected: 12/22/2022, Expires: 02/21/2023 [facility] Work Phone: Comment on above: Expected: 12/22/2022 , Expires: 02/21/2023 Start: 08-14-2022 Radionuclide localiz ation of tumor, whole body NM thyroid ca whole body [facility] Start: 08-03-2022 DEPRESSION ASSESSMENT DEPRESSION ASS ESSMENT [facility] Start: 07-08-2022 End: 09-07-2022 Thyroglobulin and Thyrogobulin Ab panel - Serum or Plasma THYROGLOBULIN, SERUM WITH REFLEX TO IA OR LC-MS/MS Lab Routine Thyroid cancer (HCC) Expected: 07/08/2022, Expires: 09/07/2022 [facility] Work Phone: Comment on above: Expected: 07/08/2022 , Expires: 09/07/2022 Start: 04-03-2022 Influenza vaccination INFLUENZA (#1) [facility] Start: 08-03-2021 DEPRESSION ASSESSMENT DEPRESSION ASS ESSMENT [facility] Start: 01-22-2021 COVID-19 VACCINE (3 - Booster for Moderna series) COVID-19 VACCINE (3 - Booster for Moderna series) [facility] Start: 01-22-2021 COVID-19 VACCINE (3 - Moderna series) COVID-19 VACCINE (3 - Moderna series) [facility] Start: [address] [facility] Start: 2008 HPV TESTING HPV TESTING [facility] Start: 1999 PAP TESTING PAP TESTING [facility] Start: 1997 Urine microalbumin profile DTAP,TDAP,TD (1 - Tdap) [facility] Start: 1996 HEPATITIS C SCREENING HEPATITIS C SC REENING [facility] Start: 1996 HIV SCREENING HIV SCREENING [facility] Start: 1978 HEPATITIS B (1 of 3 - 3-dose series) HEPATITIS B (1 of 3 - 3-dose series) [facility] Start: 1978 Hepatitis B Vaccine (1 of 3 - 3-dose series) Hepatitis B Vaccine (1 of 3 - 3-dose series) [facility] Patient Education Gastritis Know your Meds [facility] Work Phone: Renal function 2000 panel - Serum or Plasma [facility] End: 08-07-2023 Rp therapy oral administration NM THERAPY THYROID I-131 Radiology Routine Thyroid cancer (HCC) 1 Occurrences starting 07/08/2022 until 08/07/2023 [facility] Work Phone: Comment on above: 1 Occurrences starti ng 07/08/2022 until 08/07/2023 [facility] Payers Date Payer Category Payer Private Health Insurance [id number] 2023 Self-pay 2022 Unknown [id number] 2. [id number] 2018 Unknown 1978 Unknown [id number] 2.16.8 [id number] 1978 Unknown [id number] 2.16.8 [id number] 1978 Unknown [id number] 2.16.84 [id number] 1978 Unknown [id number] 2.16.8 [id number] 1978 Unknown [id number] 2.16.8 [id number] 1978 Unknown [id number] 2.16.8 [id number] 1978 Unknown [id number] 2.16.8 [id number] 1978 Unknown [id number] 2.16.8 40.1.150570.3.579.2.128 1978 Unknown [id number] 2.16.8 40.1.571909.3.579.2.1286 1978 Unknown [id number] 2.16.8 [id number] 1978 Unknown [id number] 2.16.84 [id number] 1978 Unknown [id number] 2.16.84 [id number] 1959 Unknown [id number] Unknown [id number] 2.16.8 [id number] Unknown [id number] 2.16.8 [id number] Social History Date Type Detail Facility Tobacco smoking status No Smokin g Status Entered [facility] Start: 12-25-2022 End: 02-05-2023 Sex Assigned At Female [facility] Tobacco smoking status No Smokin g Status Entered [facility] Start: 07-08-2022 End: 01-19-2024 Tobacco smoking status NHIS Never smoked tobacco [facility] Start: 07-08-2022 Tobacco use and exposure Smokeless tobacco non-user [facility] Start: 07-08-2022 End: 02-05-2023 Alcohol intake Ex-drinker (finding) [facility] Start: 1978 Sex Assigned At Not on file C [facility] Start: 1978 Sex Assigned At Female F [facility] Start: 12-25-2022 End: 02-05-2023 History of Social function [facility] Adult Depression Screening Assessment [address] [facility] Start: 12-22-2022 Gender identity Identifies as female gender (finding) [facility] Start: 12-22-2022 Sexual orientation Heterosexual (fin ding) [facility] Goals Date Patient Goal Desired Activity /State Functional Status Date Assessment Result Facility 04-29-2022 Functional Status No [facility] Clinical Notes 04-17-2022 to 01-19-2024 Telephone Encounter - Jose DArlene - 06/25/2023 11:28 AM EST Note Date & Type Note Facility 01-19-2024 Procedure note [facility] 08-28-2023 Note HNO ID: [id number] Author: DAVID DUARTE MD Service: ? Author [...] Care Visit completed when applicable. Betsy Vargas, electronics worker B.S. ZARI Duarte MD [facility] 08-19-2023 Note HNO ID: [id number] Author: STEFANI CARLOS MD Service: ? Author Type: Physician Type: Progress Notes Filed: 08/22/2023 09:35 Note Text: [facility] Neurological [facility] New Patient Visit Note Consultation [...] she says she was told by her seeing eye dog teacher that she has had birthmark cataracts in [...] kidney disease) stage 3, GFR 30-59 ml/min (HCC) HTN (hypertension) DEV (obstructive sleep apnea) Dx 2022, awaiting CPAP PAST SURGICAL HISTORY Procedure Laterality Date BX OF BREAST; INCISIONAL Left 2021 CHOLECYSTECTOMY HYSTERECTOMY PAST SURGICAL HISTORY OF Left ganglion cyst (more content not included)... [facility] 08-12-2023 Note XR ABDOMEN AP 1 VW [...] Glendy Mckee DO on 08/12/2023 6:23 PM [facility] 06-25-2023 Miscellaneous Notes Uploaded report from external EMG performed on 06/22/23 and lab results. documented in this encounter [facility] 06-24-2023 Evaluation note Encounter Date Diagnosis Assessment [...] p.o. daily for uncontrolled blood pressure. 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 I [...] log of blood pressure readings next visit [facility] 11-21-2023 Miscellaneous Notes* Telephone Encounter - [...] Not required to schedule documented in this encounterMer[facility]23 NoteHNO ID: [id number] Author: Heather Rosenbaum LSW Service: ? Author Type: Sand Conditioner Type: Progress Notes Filed: 03/27/2023 1:22 PM Note Text: Patient Declined Social Work Assessment Patient appears on the [facility] [employer] SW Report for a PHQ-9 score of 21 on 03/24/23. Patient declines the need for SW intervention. SW will remain available and will follow up as appropriate. LINDA [facility]08-25-2023 History of Present illness Narrative* Heather Rosenbaum LSW - 03/27/2023 1:15 PM EDT Patient Declined Social Work Assessment Patient appears on the [facility] [employer] SW Report for a PHQ-9 score of 21 on 03/24/23. Patient declines the need for SW intervention. SW will remain available and will follow up as appropriate. LINDA Holman-Radha documented in this encounterMer[facility]23 NoteHNO ID: [id number] Author: Navya Phelan MD Service: ? Author [...] hypothyroidism despite escalating doses recommend eval[facility] History of Present illness Narrative* Navya Phelan [...] recommend eval/consult from endocrinology documented in this encounter[facility]23 Miscellaneous Notes* Telephone Encounter - Heather Rosenbaum [...] as appropriate. JIMMY Holman documented in this encounterMer[facility]-2023 NoteHNO ID: [id number] Author: Navya Phelan MD Service: ? Author Type: Physician Type: Progress Notes Filed: 02/05/2023 11:11 AM Note Text: Radiation Oncology -follow up note PATIENT NAME: Jerardo Zeng PATIENT : 1980 REQUESTING PROVIDER: Dr. Rey Primary Site: Thyroid Date of Diagnosis: May 08, 2022 Clinical Stage: T2 N0 M0 Pathologic Stage: T2 Nx M0 DIAGNOSIS: Thyroid cancer, papillary carcinoma follicular variant, stage I [id number]. Status post thyroidectomy on 05/08/2022. Status post [...] cancer, papillary carcinoma follicular variant, stage I [id number]. Status post thyroidectomy on 05/08/2022. Thyroglobulin undetectable. However still needs increased thyroid replacement dose. Recommend to 50 mcg up from 200, recheck labs in 6 weeks. Signed by: Navya Phelan MD cc: Nevin Lara [address] [place] [address] Elena Rey MD [address] [facility] [id number] [facility]-2023 NoteHNO ID: [id number] Author: Navya Phelan MD Service: ? Author Type: Physician Type: Progress Notes Filed: 12/30/2022 2:55 PM Note Text: Radiation Oncology -follow up note PATIENT NAME: Jerardo Zeng PATIENT : 1980 REQUESTING PROVIDER: Dr. Rey Primary Site: Thyroid Date of Diagnosis: May 08, 2022 Clinical Stage: T2 N0 M0 Pathologic Stage: T2 Nx M0 DIAGNOSIS: Thyroid cancer, papillary carcinoma follicular variant, stage I [id number]. Status post thyroidectomy on 05/08/2022. Status post [...] 1.2 Thyroglobulin Ab, Serum <4.0 IU/mL <0.9 1/5/23 10:51 <0.9 (C) <0.9 Thyroglobulin, Serum 1.6 [...] cancer, papillary carcinoma follicular variant, stage I [id number]. Status post thyroidectomy on 05/08/2022. Doing well after I-131 ablative treatment. She still underdosed with her Synthroid. Recommend increasing her dose to 200 mcg daily and rechecking labs in 4 to 6 weeks. Signed by: Navya Phelan MD cc: Nevin Lara [address] [place] [id number] Elena Rey MD [address] [place] [id number] [facility]05-[facility]23 History of Present illness Narrative* Navya Phelan MD - 12/25/2022 11:54 AM EDT Radiation Oncology -follow up note PATIENT NAME: Jerardo Zeng PATIENT : 1980 REQUESTING PROVIDER: Dr. Rey Primary Site: Thyroid Date of Diagnosis: May 08, 2022 Clinical Stage: T2 N0 M0 Pathologic Stage: T2 Nx M0 DIAGNOSIS: Thyroid cancer, papillary carcinoma follicular variant, stage I [id number]. Status post thyroidectomy on 05/08/2022. Status post [...] cancer, papillary carcinoma follicular variant, stage I [id number]. Status post thyroidectomy on 05/08/2022. Doing well after I-131 ablative treatment. She still underdosed with her Synthroid. Recommend increasing her dose to 200 mcg daily and rechecking labs in 4 to 6 weeks. Signed by: Navya Phelan MD cc: Nevin Lara [address] [place] [address] Elena Rey MD [address] [place] [id number] documented in this encounterMer[facility] History of Present illness Narrative* Navya Phelan MD - 08/07/2022 2:13 PM EST Note [place] [facility] documented in this encounterMer[facility]-2023 Miscellaneous Notes* Telephone Encounter - Denise Vang [...] approval. Denise Vang LPN documented in this encounterMer[facility]12-[facility]-2022 History of Present illness Narrative* Navya Phelan MD - 07/08/2022 11:15 AM EST Radiation Oncology - New Patient/Consult Note PATIENT NAME: Jerardo Zeng PATIENT : 1980 REQUESTING PROVIDER: Dr. Rey Primary Site: Thyroid Date of Diagnosis: May 08, 2022 Clinical Stage: T2 N0 M0 Pathologic Stage: T2 Nx M0 DIAGNOSIS: 41 year old female with thyroid cancer, papillary carcinoma follicular variant, stage I [id number]. Status post thyroidectomy on 05/08/2022. HPI: 41 [...] cancer, papillary carcinoma follicular variant, stage I [id number]. Status post thyroidectomy on 05/08/2022. Patient I [...] by: Navya Phelan MD cc: Nevin Lara [facility] [place] [address] Elena Rey MD [address] [place] [id number] documented in this encounterMer[facility]12-[facility]-2022 Nurse Note* Denise Vang LPN - 07/08/2022 10:56 AM EST Low iodine diet and radiatio safety reviewed with Jerardo. She denies questions at this time. Denise Vang LPN documented in this encounterMer[facility]10-07-20[facility] Evaluation + Plan note Extracted from: Title:Clinical Document Author:Krissy ANN, Elena Licea Date:05/09/22 ENT POD 1 Pt fresting comfortably AVSS Drain 8cc overnight AM Ca 9.0 Wound C/D/I. No fluid collection Drain removed. D/C home Extracted from: Title:Post-anesthesia - General Author:Rivas Montaño DO Date:05/08/22 Plan Transfer/ Discharge: Condition stable. Extracted from: Title:Pre-anesthesia - Adult Author:Rivas Fish Jr., DO Date:05/08/22 Plan [place] [employer]hesi[employer] (ASA) physical status classification: Class II. Anesthetic Preoperative Plan Anesthesia: General. . Anesthetic plan, risks, benefits, and alternatives discussed with the patient and/or family. Patient verbalized understanding. Adverse reactions, complications, and alternatives discujssed. Consent signed and on chart.. [facility]10-07-2022 NoteCRM to entered the room to discuss dc planning. PCP, DME and insurance discussed. Patient is alert and involved in plan of care. Contact information provided and whiteboard updated. Pt has no needs. Ant dc today. CRM to follow. Pt's dtr will transport.[facility] HospitalComment on above:Result Comment: Electronically Signed By: Fiorella Hopson\Date and Time Signed: 05/09/22 11:07 [id number] Hospital Discharge instructions Patient Education 05/09/2022 08:38:02 [...] including vitamins, herbs, eye drops, creams, and uagn-fhl-vmztnxt medicines. Any problems you or family members [...] provider tells you to take them. Taking lxhk-lik-ylrjpyz medicines, vitamins, herbs, and supplements. General instructions [...] 01/13/2002 Document Revised: 07/02/2018 Document Reviewed: 05/25/2018 [employer] Patient Education 2020 [employer]. 05/09/2022 08:37:56 Thyroidectomy, Care After Thyroidectomy, Care [...] Follow these instructions at home: Medicines Take ekax-nrm-vnslyce and prescription medicines only as told by [...] to keep your urine pale yellow. ?Take dxdc-lwm-ejijktu or prescription medicines. ?Eat foods that are [...] and water are not available, use hand radiological technologist. ?Change your dressing as told by your [...] 02/06/2006 Document Revised: 09/15/2019 Document Reviewed: 05/25/2018 [employer] Patient Education 2020 [employer]. Follow Up Care 04/14/2022 08:22:39 With:Elena Rey Address: [address] [place] [address] [address], [address] [place] [address]- Business (1) When:05/16/2022 15:30:00 With:NEVIN LARA Address: [address] FA[address] [phone] [place], [place] [address]- Business (1) When: Unknown Comments:Only if needed. [facility]09-15-2022 Note [id number]:[id number] Evaluation + Plan note Future Appointments Appointment Date:05/08/2022 01:00:00 PM Scheduled Provider: Location:[facility] Appointment Type:[facility]gery [facility]* Diagnosis Thyroid cancer (HCC)- Primary Malignant neoplasm of thyroid gland documented in this encounter [facility]* Diagnosis Malignant neoplasm of thyroid gland (HCC)- Primary Malignant neoplasm of thyroid gland documented in this encounter [facility] note* Diagnosis Malignant neoplasm of thyroid gland (HCC)- Primary Malignant neoplasm of thyroid gland [facility] noteNo assessment information availableAdams [facility] Work Phone: Evaluation note* Diagnosis Malignant neoplasm of thyroid gland (HCC)- Primary Malignant neoplasm of thyroid gland documented in this encounter [facility] note* Diagnosis Thyroid cancer (HCC)- Primary Malignant neoplasm of thyroid gland [facility]* Diagnosis Malignant neoplasm of thyroid gland (HCC)- Primary Malignant neoplasm of thyroid gland documented in [facility]* Diagnosis Thyroid cancer (HCC)- Primary Malignant neoplasm of thyroid gland documented in this encounter [facility] [place] noteNo InformationNort [employer] Other Evaluation note* Diagnosis Onset Date Resolution Status Anemia acute Elevated LFTs acute Hyperparathyroidism acute Hypertensive nephropathy acu te Stage 3b chronic kidney disease acute Vitamin D deficiency acute [facility] Work Phone: History and physical note Author Musa Carrasquillo [facility] January 19, 2024 10:11am Note Date/Time January 19, 2024 10:1 1am [facility] ENTER [address] [place] [address] Gastroenterology H&P Signed Patient: Jerardo Zeng MR#: [id number] : 1980 Acct:[id number] Age/Sex: 43 / F Adm Date: 4 Loc: Room: Type: [facility] Attending Dr: Musa Carrasquillo MD Copies to: MD Nevin Philippe, GARMENT ALTERATION EXAMINER, CLINICAL VETERINARIAN~ Date of Service: 01/19/2024 HISTORY & PHYSICAL: Patient's history with special attention to the cardiovascular, pulmonary systems and the current problem was reviewed with the patient immediately prior to the procedure. Present medications and doses reviewed in the EMR. Allergies and pertinent laboratory tests were also reviewedat this time in the EMR. The physical examination, as below, was then performed. Indication, assessment and HPI: 43-year-old female with for EGD for evaluation of nausea and colonoscopy for evaluation of diarrhea Family history of GI malignancy? No PHYSICAL EXAMINATION General appearance: NAD Skin: No jaundice Head: NC/AT Eyes: Anicteric Neck: Supple Lungs: Normal respiratory effort, no use of accessory muscles Abdomen: nondistended Neuro: Ox3. REVIEW OF SYSTEMS Constitutional: Denies malaise, fevers Cardiovascular: Denies chest pain, palpitations Respiratory: Denies shortness of breath, wheezing Gastrointestinal: As per HPI Genitourinary: Denies dysuria, polyuria Musculoskeletal: Denies joint swelling, joint stiffness Neurological: Denies confusion, numbness, tingling Endocrine: Denies fatigue Written informed consent obtained from the patient. Risks (including but not limited to perforation, infection, bloating, bleeding, need for emergent surgeryand loss of life), benefits and alternatives explained and questions answered. The patient verbalized understanding. Based on history patient is an appropriate candidate for the procedure. Musa Carrasquillo M.D. Documented By: Musa Carrasquillo MD 01/19/24 0956 Signed By: <Electronically signed by Musa Carrasquillo MD> 01/19/24 [facility]1 [facility] Work Phone: History general Narrative - Reported* Type Description [...] History SEE ABOVE Hospitalization History 1 CHILD [facility] Hospital course Narrative No data available for this section [facility] Discharge instructions No data available for this section [facility] Discharge instructions Additional Instructions DISCHARGE INSTRUCTIONS FOR UPPER ENDOSCOPY WHAT TO EXPECT: - You may feel full, gassy or cramping after your procedure. In some cases, this may be from a few hours to a day. Walking may help relieve the discomfort. - Your throat may feel sore today from the scope that the doctor passed through your throat to visualize your stomach. Take a throat lozenge or suck on ice to ease the discomfort. - You may notice some streaks of blood in your sputum if the doctor has taken a biopsy. - You should begin to recover from anesthesia within 1 hour of the procedure, however may feel groggy for the next 24 hours. DO's AND DON'Ts: - Call your doctor right away if you have a hard abdomen, severe pain, vomiting or if you cough up large amounts of blood. - Call your doctor if you develop any rashes, hives or difficulty breathing. - If you take 81 mg aspirin for your heart it is safe to resume this medication. - If you take other blood thinner medications your doctor will instruct you when these can safely be resumed. - Do NOT drive for 24 hours. - Do NOT operate machinery such as power tools, [employer] mowers, snow blowers, sewing machines, etc. for 24 hours. - Avoid alcoholic beverages and drugs for allergies, nerves, or sleep. - Do NOT stay alone. Do NOT leave your child unattended. - Do NOT make important personal or business decisions or sign any legal documents. - Eat solid foods and drink liquids in smaller amounts than usual until normal appetite returns. If you should experience an upset stomach, liquids high in sugar content (soda, Mahendra-Aid, non-acid juices) are recommended. - Do NOT smoke. - Do take it easy today. You need not stay in bed, but avoid strenuous activities such as jogging or working out. DISCHARGE INSTRUCTIONS FOR COLONOSCOPY WHAT TO EXPECT: - You may feel full, gassy or cramping after your procedure. In some cases, this may be from a few hours to a day. Walking may help relieve the discomfort. - If you have polyp(s) removed you may note some minor bloody discharge after your first bowel movements. - You should begin to recover from anesthesia within 1 hour of the procedure, however may feel groggy for the next 24 hours. DO's AND DON'Ts: - Call your doctor right away if you have a hard abdomen, sever pain, are passing lots of bright red blood or clots. - Call your doctor if you develop any rashes, hives or difficulty breathing. - Let your doctor know if you have not had a bowel movement by 3 days after your procedure. - If you take 81 mg aspirin for your heart it is safe to resume this medication. - If you take other blood thinner medications your doctor will instruct you when these can safely be resumed. - Do NOT drive for 24 hours. - Do NOT operate machinery such as power tools, lawn mowers, snow blowers, sewing machines, etc. for 24 hours. - Avoid alcoholic beverages and drugs for allergies, nerves, or sleep. - Do NOT stay alone. Do NOT leave your child unattended. - Do NOT make important personal or business decisions or sign any legal documents. - Eat solid foods and drink liquids in smaller amounts than usual until normal appetite returns. If you should experience an upset stomach, liquids high in sugar content (soda, Mahendra-Aid, non-acid juices) are recommended. - You can resume normal activities tomorrow. FOLLOW UP & RECOMMENDATIONS: -Start omeprazole 40 mg daily -Notify the doctor if you have any problems. -Repeat colonoscopy in 10 years. - Office number [phone]. [facility] Work Phone: Progress note No data available for this section [facility]Re[facility] for referral (narrative)* Diagnostic Procedure Only (Routine) - Pending Review Specialty Diagnoses / Procedures Referred By Meliton pendleton Referred To Contact MOLECULAR & FUNCTIONAL IMAGING Diagnoses Thyroid cancer (HCC) Procedures NM THERAPY THYROID I-131 RP THERAPY ORAL ADMINISTRATION Navya Phelan MD [address] [place] [address] [place] [address] Molecular & Functional Imaging [address] [place] [address] Referral ID Status Reason Start Date Expiration Date Visits Requested Visits Authorized [id number] Pending Review Auto-Generat ed Referral 07/08/2022 08/07/2023 [address] [facility] Summary Purpose Family History No Family History Records Found Relationship Condition Age at Onset Recorded Date/T tavo Not Specified Malignant neoplasm Unknown father Unknown Family history of liver cancer Unknown Hypertension Unknown Not Specified Unknown Malignant neoplasm of lung Unknown sister Diabetes mellitus Unknown Malignant neoplasm of breast Unknown Crohn's disease Unknown Advance Directives No Advanced Directives Records Found Advance Directive Response Recorded Date/ Time Advance Directives No August 05, 2022 1:31pm Advance Directive Response Recorded Date/ Time Advance Directives No August 05, 2022 2:31pm Medications Administered Section Inactive Administered Medications - [...] Complaint Thyroid Cancer Chief Complaint N18.32 I12.9 Chief Complaint Renal F/U Nausea, frequent stools Nausea, frequent stools Reason for Visit Anemia Elevated LFTs Hyperparathyroidism Hypertensive nephropathy Stage 3b chronic kidney disease Vitamin D deficiency Reason for Referral Specialty Diagnoses / Procedures Referred By Meliton pendleton Referred To Contact Endocrinology Diagnoses Thyroid cancer (HCC) Procedures CONSULT TO ENDOCRINOLOGY OFFICE/OUTPATIENT [facility] 60-74 MINUTES Navya Phelan MD [address] [place] [address] [place] [address] Referral ID Status Reason Start Date Expiration Date Visits Requested Visits Authorized [id number] Authorized PCP Requested Referral 04/02/2023 03/25/2024 1 1 Additional Source Comments INFORMATION SOURCE (unrecogn ized section and content) DATE CREATED AUTHOR 01/20/2018 [facility] DATE CREATED AUTHOR AUTHOR'S ORGANIZ ATION 05/25/2022 [facility] DATE CREATED AUTHOR AUTHOR'S ORGANIZ ATION 10/26/2022 [facility] DATE CREATED AUTHOR AUTHOR'S ORGANIZ ATION 09/01/2023 [facility] DATE CREATED AUTHOR AUTHOR'S ORGANIZ ATION 01/23/2024 [facility] DATE CREATED AUTHOR AUTHOR'S ORGANIZ ATION 03/30/2024 [facility] Care Team (unrecognized sect ion and content) Team Status: Active Member Role Status Dates Nevin Lraa APRN VICE CHANCELLOR-C Primary Care Provider Active Team Status: Active Member Role Status Dates Nevin Lara APRN VICE CHANCELLOR-C Primary Care Provider Active Start: December 04, 2023 Alejandra Card MD Attending Provider Active Star t: December 04, 2023 Team Status: Inactive Member Role Status Dates Nevin Lara APRN VICE CHANCELLOR-C Primary Care Provider Active Start: December 08, 2023 End: December 08, 2023 Alejandra Card MD Attending Provider Active Star t: December 08, 2023 End: December 08, 2023 Team Status: Inactive Member Role Status Dates Nevin Lara APRN VICE CHANCELLOR-C Primary Care Provider Active Start: January 19, 2024 End: January 19, 2024 Musa Carrasquillo MD Attending Provider Active Start: January 19, 2024 End: January 19, 2024 Team Status: Active Member Role Status Dates Nevin Lara APRN VICE CHANCELLOR-C Primary Care Provider Active Start: January 19, 2024 Musa Carrasquillo MD Attending Provider, Other Provider Active Start: January 19, 2024 Team Status: Inactive Member Role Status Dates Nevin Lara APRN VICE CHANCELLOR-C Primary Care Provider Active Alejandra Card MD Attending Provider Active Health Care Consultant Relationship Specialty Start Date End Date Nevin Lara CNP [address] [place] [address] PCP - General Internal Medicine 06/30/22 Health Care Consultant Relationship Specialty Start Date End Date Nevin Lara CNP [address] [place] [address] PCP - General Internal Medicine 06/30/22 Health Care Consultant Relationship Specialty Start Date End Date Nevin Lara CNP [address] [place] [address] PCP - General Internal Medicine 06/30/22 Health Care Consultant Relationship Specialty Start Date End Date Nevin Lara CNP [address] [place] [address] PCP - General Internal Medicine 06/30/22 Health Care Consultant Relationship Specialty Start Date End Date Nevin Lara CNP [address] [place] [address] PCP - General Internal Medicine 06/30/22 Team Status: Inactive Member Role Status Dates Nevin Lara APRN VICE CHANCELLOR-C Primary Care Provider Active [place] Phelan MD Attending Provider Active Health Care Consultant Relationship Specialty Start Date End Date Aron LaraaCELE [address] [place] [address] PCP - General Internal Medicine 06/30/22 Health Care Consultant Relationship Specialty Start Date End Date Jane NevinCELE [address] [place] [address] PCP - General Internal Medicine 06/30/22 Health Care Consultant Relationship Specialty Start Date End Date Nevin Lara CNP [address] [place] [address] PCP - General Internal Medicine 06/30/22 Health Care Consultant Relationship Specialty Start Date End Date Nevin Lara CNP [address] [place] [address] PCP - General Internal Medicine 06/30/22 Health Care Consultant Relationship Specialty Start Date End Date Nevin Lara CNP [address] [place] [address] PCP - General Internal Medicine 06/30/22 Health Care Consultant Relationship Specialty Start Date End Date Nevin Lara CNP [address] [place] [address] PCP - General Internal Medicine 06/30/22 Source Comments (unrecognize d section and content) In the event this informatio n is protected by the Federal Confidentiality of Alcohol and Drug Abuse Patient Records regulations: The Federal rules restrict any use of the information to criminally investigate or prosecute any alcohol or drug abuse patient.[facility] the event this information is protected by the Federal Confidentiality of Alcohol and Drug Abuse Patient Records regulations: The Federal rules restrict any use of the information to criminally investigate or prosecute any alcohol or drug abuse patient.[facility] the event this information is protected by the Federal Confidentiality of Alcohol and Drug Abuse Patient Records regulations: The Federal rules restrict any use of the information to criminally investigate or prosecute any alcohol or drug abuse patient.[facility] the event this information is protected by the Federal Confidentiality of Alcohol and Drug Abuse Patient Records regulations: The Federal rules restrict any use of the information to criminally investigate or prosecute any alcohol or drug abuse patient.[facility]In the event this information is protected by the Federal Confidentiality of Alcohol and Drug Abuse Patient Records regulations: The Federal rules restrict any use of the information to criminally investigate or prosecute any alcohol or drug abuse patient.[facility]In the event this information is protected by the Federal Confidentiality of Alcohol and Drug Abuse Patient Records regulations: The Federal rules restrict any use of the information to criminally investigate or prosecute any alcohol or drug abuse patient.[facility] the event this information is protected by the Federal Confidentiality of Alcohol and Drug Abuse Patient Records regulations: The Federal rules restrict any use of the information to criminally investigate or prosecute any alcohol or drug abuse patient.[facility] the event this information is protected by the Federal Confidentiality of Alcohol and Drug Abuse Patient Records regulations: The Federal rules restrict any use of the information to criminally investigate or prosecute any alcohol or drug abuse patient.[facility] the event this information is protected by the Federal Confidentiality of Alcohol and Drug Abuse Patient Records regulations: The Federal rules restrict any use of the information to criminally investigate or prosecute any alcohol or drug abuse patient.[facility]In the event this information is protected by the Federal Confidentiality of Alcohol and Drug Abuse Patient Records regulations: The Federal rules restrict any use of the information to criminally investigate or prosecute any alcohol or drug abuse patient.[facility] HospitalIn the event this information is protected by the Federal Confidentiality of Alcohol and Drug Abuse Patient Records regulations: The Federal rules restrict any use of the information to criminally investigate or prosecute any alcohol or drug abuse patient.[facility] HospitalIn the event this information is protected by the Federal Confidentiality of Alcohol and Drug Abuse Patient Records regulations: The Federal rules restrict any use of the information to criminally investigate or prosecute any alcohol or drug abuse patient.[facility] HospitalIn the event this information is protected by the Federal Confidentiality of Alcohol and Drug Abuse Patient Records regulations: The Federal rules restrict any use of the information to criminally investigate or prosecute any alcohol or drug abuse patient.[facility] HospitalIn the event this information is protected by the Federal Confidentiality of Alcohol and Drug Abuse Patient Records regulations: The Federal rules restrict any use of the information to criminally investigate or prosecute any alcohol or drug abuse patient.[facility] HospitalIn the event this information is protected by the Federal Confidentiality of Alcohol and Drug Abuse Patient Records regulations: The Federal rules restrict any use of the information to criminally investigate or prosecute any alcohol or drug abuse patient.[facility] HospitalIn the event this information is protected by the Federal Confidentiality of Alcohol and Drug Abuse Patient Records regulations: The Federal rules restrict any use of the information to criminally investigate or prosecute any alcohol or drug abuse patient.[facility] HospitalIn the event this information is protected by the Federal Confidentiality of Alcohol and Drug Abuse Patient Records regulations: The Federal rules restrict any use of the information to criminally investigate or prosecute any alcohol or drug abuse patient.[facility] Reason for Visit (unrecogniz ed section and content) Reason Comments Thyroid Cancer Specialty Diagnoses / Procedures Referred By Contchloe t Referred To Contact Diagnoses Malignant neoplasm of thyroid gland (HCC) Procedures THYROTROPIN INJECTION Navya Phelan MD [address] [place] [address] Kin Treat [address] [place] [address] Referral ID Status Reason Start Date Expiration Date V isits Requested Visits Authorized [id number] Authorized 07/29/2022 10/27/2022 2 2 Reason Comments Nausea Reason Onset Date Comments Refill Request 08/28/2022 Reason Comments Social Work Services [employer] [employer] rt follow up. Reason Comments Received Outside Medical Records Externa l referral to [facility] Reason Comments Received Outside Medical Records Externa [...] BE BASED ON THE PRIMARY CLINICAL RECORDS. [facility]. provides no warranty or guarantee of the accuracy or completeness of information in this document.
--- NOTE | 2024-04-08 19:24 | CT_ITS ---
The [address] [address] Patient Name: JERARDO ONTIVEROS MRN: [id number] date: 1980 Sex: F Assigned Patient Location: ER Current Patient Location: [facility] Accession/Order Number: [id number] Exam Date: 04/08/2024 20:05 Report Date: 04/08/2024 21:26 At the request of: JOSELIN ORTEGA Procedure: CT soft tissue neck w con EXAM: CT soft tissue neck w con HISTORY: Neck pain/swelling COMPARISON: None. TECHNIQUE: Axial images of the neck were obtained following the intravenous administration of contrast. Sagittal and coronal reformations were provided. FINDINGS: No discrete mass, abscess or pathologic lymph nodes within the neck. The pharynx, larynx and trachea appear normal. There are postoperative changes compatible with previous thyroidectomy. The salivary glands and intracranial contents appear normal. No mass or airspace consolidation within the visualized lungs. No CT evidence of a bony destructive process. There is a large retention cyst within the right maxillary antrum. The remaining visualized paranasal sinuses and mastoids are well-aerated. CT/CT soft tissue neck w con IMPRESSION: No CT evidence of a mass, abscess or pathologic lymph nodes within the neck. Electronically authenticated by: EMERALD BRAVO Date: 04/08/2024 21:26
--- NOTE | 2024-04-08 19:24 | CT_ITS ---
The [address] [address] Patient Name: JERARDO ONTIVEROS MRN: [id number] date: 1980 Sex: F Assigned Patient Location: ER Current Patient Location: ER Accession/Order Number: [id number] Exam Date: 04/08/2024 20:05 Report Date: 04/08/2024 21:28 At the request of: JOSELIN ORTEGA Procedure: CT facial bones w con EXAM: CT facial bones w con HISTORY: Right facial swelling, ear pain COMPARISON: None. TECHNIQUE: Axial images were obtained through the maxillofacial bones following the intravenous administration of contrast. Sagittal and coronal reformations were provided. FINDINGS: No CT evidence of an acute maxillofacial fracture or bony destructive process. No mass or abscess within the visualized maxillofacial soft tissues. There is a large retention cyst within the right maxillary antrum. The visualized paranasal sinuses and mastoids are otherwise well-aerated. The intra and extraconal orbital fat is homogeneous. The globes, optic nerve sheaths, rectus muscles and lacrimal glands appear normal. The visualized intracranial contents are also normal in appearance. CT/CT facial bones w con IMPRESSION: No CT evidence of a mass or abscess within the visualized maxillofacial soft tissues. Electronically authenticated by: EMERALD BRAVO Date: 04/08/2024 21:28
--- NOTE | 2024-04-08 19:24 | XR_ITS ---
The [address] [address] Patient Name: JERARDO ONTIVEROS MRN: [id number] date: 1980 Sex: F Assigned Patient Location: ER Current Patient Location: ER Accession/Order Number: [id number] Exam Date: 04/08/2024 19:50 Report Date: 04/08/2024 20:39 At the request of: JOSELIN ORTEGA Procedure: XR chest 1V EXAM: XR chest 1V at 1943 hours HISTORY: Chest pain COMPARISON: 12/18/2015 TECHNIQUE: AP upright portable chest x-ray FINDINGS: The heart is not enlarged and the vasculature is not distended. No acute infiltrate, effusion or pneumothorax is identified. The osseous structures are grossly intact. XR/XR chest 1V IMPRESSION: No acute infiltrate or evidence of cardiac decompensation. The overall appearance of the chest has not changed significantly. Electronically authenticated by: WILLOW HERNANDEZ Date: 04/08/2024 20:39
--- NOTE | 2024-04-08 19:24 | ECG_ITS ---
The [facility] Test Date: 2024-04-08 Pat Name: JERARDO ONTIVEROS Department: Room: - Gender: Female [employer]: : 1980 Requested By: [id number] Order Number: [id number] Reading MD: JH PAGE Measurements Intervals [place] Rate: 56 P: 90 NM: 194 QRS: 40 QRSD: 94 T: 243 QT: 382 QTc: 372 Interpretive Statements 1100 Sinus rhythm 4068 Nonspecific Twave abnormality, can't exclude inferolateral ischemia 9130 borderline ECG No previous ECG available for comparison Electronically Signed On 04-09-2024 7:40:39 EDT by JH PAGE
--- NOTE | 2024-04-08 19:27 | ED_ITS ---
HPI HPI - General Adult General Chief complaint: Ear Stated complaint: CP, SWOLLEN FACE, EAR PAIN Time Seen by Provider: 04/08/24 19:06 Source: patient Mode of arrival: walk-in Limitations: no limitations History of Present Illness HPI narrative: Patient is a 43-year-old female who presents to the emergency department for the evaluation of multiple complaints. Patient states 6 weeks ago she was treated for right ear infection with antibiotics after her right ear was flushed out at [place] emergency department. She states she completed the antibiotics but never had an improvement of pain to the right ear. She states she has continued to have increasing pain to the right side of the face and in the last several days has noticed swelling to the right side of the face into the right side of the neck and into the right upper chest. She has had no objective fevers. No drainage from the ear. She reports a sore throat. She is speaking and breathing easily. She has a remote history of thyroid carcinoma. She currently takes medications at home for her thyroid and high blood pressure. No history of diabetes. Related Data Home Medications ?Medication ?Instructions ?Recorded ?Confirmed amlodipine 10 mg tablet mg 04/08/24 buspirone 5 mg tablet mg 04/08/24 carvedilol 6.25 mg tablet mg 04/08/24 ergocalciferol (vitamin D2) 1,250 04/08/24 mcg (50,000 unit) capsule hydroxyzine pamoate 25 mg capsule mg 04/08/24 liothyronine 25 mcg tablet mcg 04/08/24 Previous Rx's ?Medication ?Instructions ?Recorded clindamycin HCl 150 mg capsule 300 mg (2 x 150 mg) PO Q6H 10 days 04/08/24 #80 caps ketorolac 10 mg tablet 10 mg PO TID PRN pain #10 tabs 04/08/24 prednisone 20 mg tablet See Rx Instructions .Route 04/08/24 .COMPLEX #12 tabs Allergies Allergy/AdvReac Type Severity Reaction Status Date / Time Penicillins Allergy Unknown Unknown Verified 04/08/24 19:14 Opioid HPI Opioid Management Most Recent Opioid Data: No Data to Display Review of Systems ROS Constitutional Denies: fever or chills Ears, nose, mouth, and throat Reports: throat pain and neck pain; Denies: nasal congestion Cardiovascular Reports: chest pain Respiratory Denies: shortness of breath or cough Gastrointestinal Denies: abdominal pain, nausea or vomiting Musculoskeletal Denies: back pain or neck pain Integumentary/Breast Denies: rash Neurological Reports: headache; Denies: numbness in extremities or weakness in extremities Hematologic/Lymphatic Denies: easy bruising or easy bleeding PFSH PFS Medical History (Updated 04/08/24 @ 21:39 by ARMAAN Andrea) Kidney disease, chronic, stage III (GFR 30-59 ml/min) ?N18.30 - Chronic kidney disease, stage 3 unspecified (ICD-10) Thyroid cancer ?C73 - Malignant neoplasm of thyroid gland (ICD-10) Surgical History (Updated 04/08/24 @ 19:57 by Arlene Cardona) H/O total hysterectomy ?Z90.710 - Acquired absence of both cervix and uterus (ICD-10) Social History Little interest or pleasure in doing things: not at all Feeling down, depressed, or hopeless: not at all Exam Narrative Exam Narrative: Gen.: Awake, alert, in no distress Head: Normocephalic, atraumatic ENT: Right TM is clear, mildly fluid-filled with no erythema or injection, minimal erythema in the right external canal with no swelling appreciated. No drainage. Right jaw/cheek is edematous and tender with no palpable fluctuance. No erythema or induration. Diffuse tenderness of the right side of the neck into the right upper chest just inferior to the clavicle and superior to the axilla. Respiratory: No respiratory distress, lungs clear bilaterally Cardio: Regular rate and rhythm Extremities: Moves extremities equally Psych: Normal mood and affect Neuro: No focal neuro deficit Skin: Warm, dry, intact Constitutional Vital Signs, click to edit/add: Last Vital Signs Temp 98 F 04/08/24 19:14 Pulse 56 L 04/08/24 21:57 Resp 12 04/08/24 21:57 BP 154/108 H 04/08/24 21:57 Pulse Ox 99 04/08/24 19:14 O2 Del Method Room Air 04/08/24 19:14 Course Vital Signs Vital signs: Vital Signs Temperature 98 F 04/08/24 19:14 Pulse Rate 66 04/08/24 19:14 Respiratory Rate 18 04/08/24 19:14 Blood Pressure 166/108 H 04/08/24 19:14 Pulse Oximetry 99 04/08/24 19:14 Oxygen Delivery Method Room Air 04/08/24 19:14 Temperature 98 F 04/08/24 19:14 Pulse Rate 56 L 04/08/24 21:57 Respiratory Rate 12 04/08/24 21:57 Blood Pressure 154/108 H 04/08/24 21:57 Pulse Oximetry 99 04/08/24 19:14 Oxygen Delivery Method Room Air 04/08/24 19:14 Medical Decision Making MDM Narrative Medical decision making narrative: Patient was treated with IV fluids, Decadron, Toradol with improvement. She has no evidence of airway compromise. CT of the facial bones as well as soft tissue of the neck with no acute process per the radiologist. Patient was treated with IV fluids, Decadron, Toradol with improvement. She has no evidence of airway compromise. CT of the facial bones as well as soft tissue of the neck with no acute process per the radiologist. Laboratory studies reviewed and noted, TSH, free T4 and free T3 are abnormal. The remainder of the workup is unremarkable. No EKG changes. Patient will be placed on Augmentin, prednisone, Toradol for home. Follow-up with ENT. 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 Follow-up with PCP, ENT and ppa teacher and return to the ER if symptoms change or worsen. SUPERVISED APC VISIT, PHYSICIAN ATTESTATION: Based on the medical record the care appears appropriate. ? Medical Records Medical records reviewed: Yes I reviewed the patient's medical records Lab Data Lab results reviewed: Yes I reviewed the patient's lab results Labs: Lab Results 04/08/24 Range/Units 19:31 WBC 7.2 (4.0-11.0) 10^3/uL RBC 4.06 L (4.20-5.40) 10^6/uL Hgb 11.8 L (12.0-16.0) g/dL Hct 35.8 L (36.0-48.0) % MCV 88.2 (81.0-99.0) fL MCH 29.1 (26.7-34.0) pg MCHC 33.0 (29.9-35.2) g/dL RDW 14.6 (11.0-15.0) % Plt Count 249 (150-450) 10^3/uL MPV 10.9 (9.5-13.5) fL Neut % (Auto) 48.0 (43.0-75.0) % Lymph % (Auto) 44.1 (20.5-60.0) % Dent % (Auto) 5.4 (1.7-12.0) % Eos % (Auto) 1.4 (0.9-7.0) % Baso % (Auto) 0.8 (0.2-2.0) % Neut # (Auto) 3.4 (1.4-6.5) 10^3/uL Lymph # (Auto) 3.2 (1.2-3.8) 10^3/uL Dent # (Auto) 0.4 (0.3-0.8) 10^3/uL Eos # (Auto) 0.1 (0.0-0.7) 10^3/uL Baso # (Auto) 0.1 (0.0-0.1) 10^3/uL Abs Immat Gran (auto) 0.02 (0.00-0.03) 10^3/uL Imm/Tot Granulo (auto) 0.3 (0.0-0.5) % ESR 48 H (<=20) mm/hr PT 10.9 (9.0-11.6) sec INR 1.03 Sodium 137 (136-145) mmol/L Potassium 3.1 L (3.5-5.1) mmol/L Chloride 99 (98-107) mmol/L Carbon Dioxide 29.5 (21.0-32.0) mmol/L Anion Gap 11.6 BUN 12.0 (7.0-18.0) mg/dL Creatinine 1.50 H (0.55-1.02) mg/dL Est GFR ( Amer) 45 L (>=60) Est GFR (Non-Af Amer) 38 L (>=60) BUN/Creatinine Ratio 8.0 Glucose 94 (74-106) mg/dL Lactate 1.4 (0.4-2.0) mmol/L Calcium 9.3 (8.5-10.1) mg/dL Total Bilirubin 0.4 (0.2-1.0) mg/dL AST 96 H (15-37) U/L ALT 60 H (14-59) U/L Alkaline Phosphatase 97 (46-116) U/L Troponin I High Sens 6.9 (4.0-51.3) pg/mL C-Reactive Protein <0.50 (<=0.50) mg/dL Total Protein 7.8 (6.4-8.2) g/dL Albumin 4.3 (3.4-5.0) g/dL Globulin 3.5 g/dL Albumin/Globulin Ratio 1.2 TSH 122.601 H (0.358-3.740) uIU/mL Free T4 0.17 L (0.76-1.46) ng/dL Free T3 <0.50 L (2.18-3.98) pg/mL Imaging Data Chest x-ray: Attestation: I have reviewed the pertinent imaging results. Radiologist's impression: ITS Impressions Chest X-Ray 04/08/24 19:24 IMPRESSION: No acute infiltrate or evidence of cardiac decompensation. The overall appearance of the chest has not changed significantly. Electronically authenticated by: WILLOW HERNANDEZ Date: 04/08/2024 20:[address] 04/08/24 19:24 IMPRESSION: No CT evidence of a mass or abscess within the visualized maxillofacial soft tissues. Electronically authenticated by: EMERALD BRAVO Date: 04/08/2024 21:[address] 04/08/24 19:24 IMPRESSION: No CT evidence of a mass, abscess or pathologic lymph nodes within the neck. Electronically authenticated by: EMERALD BRAVO Date: 04/08/2024 21:26 ECG Data Attestation: I personally reviewed and interpreted this ECG as follows: (Normal sinus rhythm at a rate of 56, no acute ST elevation or ectopy. EKG reviewed by attending physician) Discharge Plan Discharge Chief Complaint: Ear Clinical Impression: Facial swelling, Atypical face pain, Elevated TSH Patient Disposition: Home, Self-Care Time of Disposition Decision: 21:36 Condition: Good Mode of Transportation: Private Vehicle Prescriptions / Home Meds: New prednisone 20 mg tablet See Rx Instructions .ROUTE .COMPLEX Qty: 12 0RF Rx Instructions: 3 tabs daily for 2 days, then 2 tabs daily for 2 days, then 1 tab daily for 2 days ketorolac 10 mg tablet 10 mg PO TID PRN (Reason: pain) Qty: 10 0RF clindamycin HCl 150 mg capsule 300 mg PO Q6H 10 Days Qty: 80 0RF No Action buspirone 5 mg tablet carvedilol 6.25 mg tablet liothyronine 25 mcg tablet amlodipine 10 mg tablet ergocalciferol (vitamin D2) 1,250 mcg (50,000 unit) capsule hydroxyzine pamoate 25 mg capsule Print Language: Uzbek Instructions: Atypical Facial Pain (ED) Referrals: [facility] [Primary Care Provider] - 1 week Elena Rey MD [Physician] - As soon as possible Discharge Date/Time: 04/08/24 21:59
--- NOTE | 2024-04-08 19:36 | PC.NURSE ---
PT STATES 6 WKS AGO HAD EAR INFECTION AND TOOK ABX FOR IT. PT STATES STARTED HAVING RIGHT FACIAL SWELLING THAT STARTED 3 DAYS AGO AND HAVE GOTTEN WORSE AND NOW INTO NECK. PT STATES STARTED HAVING RIGHT SIDE CP TODAY WELL WITH NAUSEA
[2024-04-08 19:40] LABS: Basophils Absolute Auto 0.1 10^3/uL (0.0-0.1); Basophils Percent Auto 0.8 % (0.2-2.0); Eosinophils Absolute Auto 0.1 10^3/uL (0.0-0.7); Eosinophils Percent Auto 1.4 % (0.9-7.0); Hematocrit 35.8 % (36.0-48.0); Hemoglobin 11.8 g/dL (12.0-16.0); Immature Granulocytes Abs Auto 0.02 10^3/uL (0.00-0.03); Immature Granulocytes Pct Auto 0.3 % (0.0-0.5); Lymphocytes Absolute Auto 3.2 10^3/uL (1.2-3.8); Lymphocytes Percent Auto 44.1 % (20.5-60.0); Mean Corpuscular Hemoglobin 29.1 pg (26.7-34.0); Mean Corpuscular Volume 88.2 fL (81.0-99.0); Mean Platelet Volume 10.9 fL (9.5-13.5); Monocytes Absolute Auto 0.4 10^3/uL (0.3-0.8); Monocytes Percent Auto 5.4 % (1.7-12.0); Neutrophils Absolute Auto 3.4 10^3/uL (1.4-6.5); Platelet Count 249 10^3/uL (150-450); Red Blood Count 4.06 10^6/uL (4.20-5.40); Red Cell Distribution Width 14.6 % (11.0-15.0); White Blood Count 7.2 10^3/uL (4.0-11.0)
[2024-04-08] MEDS: DEXAMETHASONE SOD PHOS 10 MG/ML VIAL IV (19:42)
[2024-04-08] MEDS: 0.9 % SODIUM CHLORIDE 1,000 ML 1000 ML IV (19:43)
[2024-04-08] MEDS: KETOROLAC TROMETHAMINE 30 MG/ML VIAL IVP (19:43)
[2024-04-08 19:48] LABS: Erythrocyte Sedimentation Rate 48 mm/hr (<=20)
[2024-04-08 19:58] LABS: INR 1.03; Prothrombin Time 10.9 sec (9.0-11.6)
[2024-04-08 20:01] LABS: Alanine Aminotransferase 60 U/L (14-59); Albumin Globulin Ratio 1.2; Albumin Level 4.3 g/dL (3.4-5.0); Alkaline Phosphatase 97 U/L (46-116); Anion Gap 11.6; Aspartate Amino Transferase 96 U/L (15-37); Bilirubin Total 0.4 mg/dL (0.2-1.0); Calcium 9.3 mg/dL (8.5-10.1); Carbon Dioxide 29.5 mmol/L (21.0-32.0); Chloride 99 mmol/L (98-107); Estimated GFR (African America 45 (>=60); Estimated GFR (Non-African Ame 38 (>=60); Globulin 3.5 g/dL; Glucose 94 mg/dL (74-106); Potassium 3.1 mmol/L (3.5-5.1); Sodium 137 mmol/L (136-145); Total Protein 7.8 g/dL (6.4-8.2)
[2024-04-08 20:02] LABS: Lactate/Lactic Acid 1.4 mmol/L (0.4-2.0)
[2024-04-08 20:08] LABS: C Reactive Protein <0.50 mg/dL (<=0.50); Thyroid Stimulating Hormone 122.601 uIU/mL (0.358-3.740); Troponin I High Sensitivity 6.9 pg/mL (4.0-51.3)
[2024-04-08 20:53] LABS: Free T3 <0.50 pg/mL (2.18-3.98)
[2024-04-08 21:21] LABS: Free T4 0.17 ng/dL (0.76-1.46)
[2024-04-08] MEDS: POTASSIUM CHLORIDE 10 MEQ ER TABLET 40 MEQ PO (21:38)
[2024-04-08] MEDS: CLINDAMYCIN HCL 150 MG CAPSULE 300 MG PO (21:52)
== END 2024-04-08 21:59 | disposition home or self-care (01) ==
PROVIDERS: Physician Assistant; Emergency Provider Internal Medicine
DX: G50.1 Atypical facial pain (principal); R22.0 Localized swelling, mass and lump, head; R94.6 Abnormal results of thyroid function studies; Z85.850 Personal history of malignant neoplasm of thyroid
CPT/HCPCS: 36415; 70487; 70491; 71045; 80053; 83605; 84439; 84443; 84481; 84484; 85025; 85610; 85652; 86140; 93005; 96374; 96375; 99285; J1100; J1885; Q9966